=== PATIENT | female | born 1985 | race American Indian/Alaskan Native ===

== ENCOUNTER 2017-04-28 12:56 | Emergency (ER) | payer MEDICARE, MEDICAID ==
[2017-04-28 13:08] VITALS: BMI 25.8
[2017-04-28 13:14] VITALS: RESP 18; TEMP 98; O2SAT 99
--- NOTE | 2017-04-28 13:23 | ED PDOC ---
Arrival/HPI - General Chief Complaint: Headache Time Seen by Provider: 04/28/17 13:08 Historian: Patient - History of Present Illness Time/Duration: 1 week Symptom Onset: Gradual Symptom Course: Worsening Quality: Throbbing Severity Level: Moderate Activities at Onset: Rest Associated Symptoms (Text): 04/28/17 13:20 Patient complains of a one-week history of a worsening throbbing left-sided headache. The headache had been relieved with Tylenol, but the Tylenol is no longer working. No nausea vomiting. No head trauma. No dizziness or lightheadedness. No numbness tingling or paresthesias. No weakness. No difficulty with ADLs. She has had similar headaches multiple times previously, but not in approximately one year. She has had multiple normal CT scans of the brain, last in December 2015. She did have dialysis yesterday. She reports she was at her HIV doctor several weeks ago and her viral load was undetectable. She does not appear to be in any distress. Past Medical History - Infectious Disease Hx of Infectious Diseases: None - Tetanus Immunization Tetanus Immunization: Unknown - Cardiac Hx Congestive Heart Failure: Yes Hx Hypertension: Yes - Pulmonary Hx Respiratory Disorders: Yes Hx Bronchitis: Yes - Neurological Hx Neurological Disorder: No - HEENT Hx HEENT Disorder: No - Renal Hx Renal Disorder: Yes Hx Dialysis: Yes (m/w/f [facility]) Hx Renal Failure: Yes - Endocrine/Metabolic Hx Endocrine Disorders: No - Hematological/Oncological Hx AIDS: Yes Hx Hepatitis C: Yes - Integumentary Hx Dermatological Disorder: No - Musculoskeletal/Rheumatological Hx Falls: No - Gastrointestinal Hx Pancreatitis: Yes Other/Comment: pancreatitis - Genitourinary/Gynecological Hx Genitourinary Disorders: No - Psychiatric Hx Anxiety: Yes Hx Depression: Yes Hx Emotional Abuse: No Hx Physical Abuse: No Hx Substance Use: No - Surgical History Other/Comment: right arm AV fistula - Anesthesia Hx Anesthesia: Yes Hx Anesthesia Reactions: No Hx Malignant Hyperthermia: No - Suicidal Assessment Feels Threatened In Home Enviroment: No Family/Social History - Physician Review Nursing Documentation Reviewed: Yes Family/Social History: Unknown Family HX Smoking Status: Heavy Smoker > 10 Cigarettes Daily Hx Alcohol Use: No Hx Substance Use: No Hx Substance Use Treatment: No Allergies/Home Meds Allergies/Adverse Reactions: Allergies shellfish derived Allergy (Verified 04/28/17 13:15) ANAPHYLAXIS Home Medications: Home Meds Medication Instructions Recorded Confirmed cloNIDine [Catapres] 0.2 mg PO TID 04/11/15 04/28/17 Cinacalcet [Sensipar] 30 mg PO DAILY 11/17/15 04/28/17 hydrALAZINE [Apresoline] 50 mg PO TID 11/17/15 04/28/17 Lisinopril [Zestril] 20 mg PO DAILY 01/05/16 04/28/17 Metoprolol Succinate [Toprol XL] 200 mg PO DAILY 01/05/16 04/28/17 Review of Systems - Physician Review All systems were reviewed & negative as marked: Yes - Review of Systems Constitutional: absent: Fatigue, Fevers Respiratory: Normal Cardiovascular: Normal Gastrointestinal: Diarrhea. absent: Abdominal Pain, Constipation, Nausea, Vomiting Neurological: Headache. absent: Dizziness, Focal Weakness, Gait Changes, Speech Changes, Facial Droop, Disequilibrium, Seizure Physical Exam Vital Signs Temp Pulse Resp BP Pulse Ox 04/28/17 14:29 64 18 125/105 H 99 04/28/17 13:52 63 18 150/99 H 99 04/28/17 13:36 73 158/107 H 04/28/17 13:09 98 F 81 18 158/107 H 99 04/28/17 12:56 98 F 81 18 158/108 H 99 Temperature: Afebrile Blood Pressure: Hypertensive Pulse: Regular Respiratory Rate: Normal Appearance: Positive for: Well-Appearing, Non-Toxic, Comfortable Pain Distress: None Mental Status: Positive for: Alert and Oriented X 3 - Systems Exam Head: Present: Atraumatic, Normocephalic Pupils: Present: PERRL Extroacular Muscles: Present: EOMI Conjunctiva: Present: Normal Ears: Present: NORMAL TM, Normal Canal. No: Erythema Mouth: Present: Moist Mucous Membranes Pharnyx: No: ERYTHEMA, EXUDATE, TONSILS ENLARGED Neck: Present: Normal Range of Motion. No: Meningeal Signs, MIDLINE TENDERNESS , Paraspinal Tenderness Upper Extremity: Present: Normal Inspection. No: Cyanosis, Edema Lower Extremity: Present: Normal Inspection. No: Edema Neurological: Present: GCS=15, CN II-XII Intact, Speech Normal, Motor Func Grossly Intact, Normal Cerebellar Funct, Gait Normal Skin: Present: Warm, Dry, Normal Color. No: Rashes Psychiatric: Present: Alert, Oriented x 3, Normal Insight, Normal Concentration Medical Decision Making ED Course and Treatment: 04/28/17 14:10 Headache is markedly improved post Imitrex, though the patient is now nauseous. She will be treated with Zofran. Her blood pressure has improved. Her mother is coming to pick her up. 04/28/17 14:30 Patient is refusing the Zofran. She is insisting on a CT scan of the head, though we had previously discussed that she had multiple normal CT scans of the brain and her neurological exam is normal and I do not feel that further imaging is warranted. CT scan has been ordered for the patient. 04/28/17 14:40 Patient now does not want stay for the CT scan and will be discharged home accompanied by her mother. - RAD Interpretation Radiology Orders: 04/28/17 14:28 HEAD W/O CONTRAST [CT] Stat - Medication Orders Current Medication Orders: Discontinued Medications Clonidine HCl (Catapres) 0.2 mg PO ONCE ONE Stop: 04/28/17 13:21 Last Admin: 04/28/17 13:36 Dose: 0.2 mg Ondansetron HCl (Zofran Odt) 4 mg PO STAT STA Stop: 04/28/17 14:11 Last Admin: 04/28/17 14:20 Dose: Not Given Non-Admin Reason: Patient Refused Sumatriptan Succinate (Imitrex Inj) 6 mg SC STAT STA Stop: 04/28/17 13:20 Last Admin: 04/28/17 13:37 Dose: 6 mg Disposition/Present on Arrival - Present on Arrival Any Indicators Present on Arrival: No History of DVT/PE: No History of Uncontrolled Diabetes: No Urinary Catheter: No History of Decub. Ulcer: No History Surgical Site Infection Following: None - Disposition Have Diagnosis and Disposition been Completed?: Yes Diagnosis: Headache Disposition: HOME/ ROUTINE Disposition Time: 14:40 Patient Plan: Discharge Condition: IMPROVED Discharge Instructions (ExitCare): Acute Headache (ED), Migraine Headache (ED) Referrals: Zuleyma Collier MD [Primary Care Provider] - Follow up with primary Forms: Thumb Reading (Kiswahili)
[2017-04-28 14:31] VITALS: BP 125/105; PULSE 64
== END 2017-04-28 14:47 | disposition home or self-care (01) ==
LOC: ED 12:56
DX: R51 Headache (principal)
CPT/HCPCS: 96372; 99285; J3030

== ENCOUNTER 2017-05-08 18:50 | Emergency (ER) | payer MEDICARE, MEDICAID ==
[2017-05-08 18:59] VITALS: TEMP 98.2; O2SAT 99
[2017-05-08 19:21] VITALS: BMI 27.1
--- NOTE | 2017-05-08 19:46 | ED PDOC ---
Arrival/HPI - General Chief Complaint: Headache Time Seen by Provider: 05/08/17 19:03 - History of Present Illness Narrative History of Present Illness (Text): 05/08/17 19:20 31 F with pertinent PMHx of ESRD on Dialysis MWF (but last session was actually today) presents with an 8 hour duration of a sharp, left sided, non-radiating headache of 10/10 severity with associated symptoms of photophobia, phonophobia , and n/v. Patient took ibuprofen, Percocet, and Tylenol at home to no avail. Patient states that she has had MCCLELLAN's in the past, but none as bad as this one. Patient denies f/ch/cp/sob/d/constipation. Patient further denies any los, loss of vision, loss of motor function, confusion, or trauma. No further complaints. Past Medical History - Provider Review Nursing Documentation Reviewed: Yes - Infectious Disease Hx of Infectious Diseases: None - Tetanus Immunization Tetanus Immunization: Unknown - Reproductive Menopause: No - Cardiac Hx Congestive Heart Failure: Yes Hx Hypertension: Yes - Pulmonary Hx Respiratory Disorders: Yes Hx Bronchitis: Yes - Neurological Hx Neurological Disorder: No - HEENT Hx HEENT Disorder: No - Renal Hx Renal Disorder: Yes Hx Dialysis: Yes (m/w/f [facility]) Hx Renal Failure: Yes - Endocrine/Metabolic Hx Endocrine Disorders: No - Hematological/Oncological Hx AIDS: Yes Hx Hepatitis C: Yes - Integumentary Hx Dermatological Disorder: No - Musculoskeletal/Rheumatological Hx Falls: No - Gastrointestinal Hx Pancreatitis: Yes Other/Comment: pancreatitis - Genitourinary/Gynecological Hx Genitourinary Disorders: No - Psychiatric Hx Anxiety: Yes Hx Depression: Yes Hx Emotional Abuse: No Hx Physical Abuse: No Hx Substance Use: No - Surgical History Other/Comment: right arm AV fistula - Anesthesia Hx Anesthesia: Yes Hx Anesthesia Reactions: No Hx Malignant Hyperthermia: No - Suicidal Assessment Feels Threatened In Home Enviroment: No Family/Social History - Physician Review Nursing Documentation Reviewed: Yes Smoking Status: Heavy Smoker > 10 Cigarettes Daily Hx Alcohol Use: No Hx Substance Use: No Hx Substance Use Treatment: No Allergies/Home Meds Allergies/Adverse Reactions: Allergies shellfish derived Allergy (Verified 04/28/17 13:15) ANAPHYLAXIS Home Medications: Home Meds Medication Instructions Recorded Confirmed cloNIDine [Catapres] 0.2 mg PO TID 04/11/15 04/28/17 Cinacalcet [Sensipar] 30 mg PO DAILY 11/17/15 04/28/17 hydrALAZINE [Apresoline] 50 mg PO TID 11/17/15 04/28/17 Lisinopril [Zestril] 20 mg PO DAILY 01/05/16 04/28/17 Metoprolol Succinate [Toprol XL] 200 mg PO DAILY 01/05/16 04/28/17 Review of Systems - Physician Review All systems were reviewed & negative as marked: Yes - Review of Systems Constitutional: Normal. absent: Fatigue, Weight Change, Fevers Eyes: Photophobia. absent: Vision Changes, Eye Pain ENT: Normal. absent: Hearing Changes, Tinnitus, TMJ Pain, Voice Changes, Sore Throat Respiratory: Normal. absent: SOB, Cough, Sputum, Wheezing Cardiovascular: Normal. absent: Chest Pain, Palpitations, Edema Gastrointestinal: Nausea, Vomiting. absent: Abdominal Pain, Stool Changes, Diarrhea, Appetite Changes Genitourinary Female: Normal. absent: Dysuria, Frequency, Hematuria Musculoskeletal: Normal. absent: Arthralgias, Back Pain, Neck Pain Skin: Normal. absent: Rash, Pruritis, Skin Lesions, Laceration Neurological: Headache, Dizziness. absent: Focal Weakness, Gait Changes, Speech Changes, Facial Droop Endocrine: Normal. absent: Diaphoresis, Polyuria, Polydipsia Hemo/Lymphatic: Normal. absent: Adenopathy, Easy Bleeding, Easy Bruising Psychiatric: Normal. absent: Anxiety, Depression, Suicidal Ideation Physical Exam Vital Signs Reviewed: Yes Vital Signs Temp Pulse Resp BP Pulse Ox 05/08/17 19:50 74 151/111 H 05/08/17 18:57 98.2 F 77 18 202/103 H 99 Temperature: Afebrile Blood Pressure: Hypertensive Pulse: Regular Respiratory Rate: Normal Appearance: Positive for: Well-Appearing, Non-Toxic, Comfortable Pain Distress: None Mental Status: Positive for: Alert and Oriented X 3 - Systems Exam Head: Present: Atraumatic, Normocephalic. No: Tenderness, Contusion Pupils: Present: PERRL. No: Sluggish, Non-Reactive, Pinpoint Extroacular Muscles: Present: EOMI. No: Gaze Palsy, Entrapment Conjunctiva: Present: Normal. No: Injected, Icteric Ears: Present: Normal. No: NORMAL TM, Erythema, Normal Canal Mouth: Present: Moist Mucous Membranes. No: Dry, Drooling, Trismus Pharnyx: Present: Normal. No: ERYTHEMA, EXUDATE, TONSILS ENLARGED Nose (External): Present: Atraumatic. No: Abrasion, Contusion, Laceration Neck: Present: Normal Range of Motion. No: Meningeal Signs, MIDLINE TENDERNESS , Paraspinal Tenderness Respiratory/Chest: Present: Clear to Auscultation, Good Air Exchange. No: Respiratory Distress, Accessory Muscle Use, Wheezes Cardiovascular: Present: Regular Rate and Rhythm, Normal S1, S2. No: Murmurs, Rub, Gallop Abdomen: Present: Normal Bowel Sounds. No: Tenderness, Distention, Peritoneal Signs, Rebound, Guarding Back: Present: Normal Inspection. No: CVA Tenderness, Midline Tenderness, Paraspinal Tenderness Upper Extremity: Present: Normal Inspection. No: Cyanosis, Edema, Normal ROM, NORMAL PULSES Lower Extremity: Present: Normal Inspection. No: Edema, CALF TENDERNESS, NORMAL PULSES, Cyanosis, Normal ROM Neurological: Present: GCS=15, CN II-XII Intact, Speech Normal, Motor Func Grossly Intact, Normal Sensory Function Skin: Present: Warm, Dry, Normal Color. No: Rashes Psychiatric: Present: Alert, Oriented x 3, Normal Insight, Normal Concentration , Normal Affect, Normal Mood. No: Anxious, Agitated Medical Decision Making ED Course and Treatment: Assessed: 05/08/17 19:20 Impression: 31 F with pertinent medical history of ESRD on Dialysis, last session today, presents with 8 hour duration of MCCLELLAN with photophobia, phonophobia, and n/v. Hypertensive on arrival Plan: - Hydralazine - Reglan - Reassess Reassessed: 05/08/17 20:04 - Pt feels better after hydralazine and reglan 05/08/17 21:20 - Pt feels much better from arrival - BP improved - Patient states she does not want anything more for pain - Patient stable for discharge - Medication Orders Current Medication Orders: Discontinued Medications Hydralazine HCl (Apresoline) 10 mg IVP STAT STA Stop: 05/08/17 19:23 Last Admin: 05/08/17 19:50 Dose: 10 mg Ketorolac Tromethamine (Toradol) 30 mg IVP STAT STA Stop: 05/08/17 20:33 Metoclopramide HCl (Reglan) 10 mg IVP STAT STA Stop: 05/08/17 19:22 Last Admin: 05/08/17 19:50 Dose: 10 mg Disposition/Present on Arrival - Present on Arrival History of DVT/PE: No History of Uncontrolled Diabetes: No Urinary Catheter: No History of Decub. Ulcer: No History Surgical Site Infection Following: None - Disposition Have Diagnosis and Disposition been Completed?: Yes Diagnosis: Headache Disposition: HOME/ ROUTINE Disposition Time: 21:06 Patient Plan: Discharge Patient Problems: Current Active Problems Problem Status Onset Headache Acute Condition: IMPROVED Discharge Instructions (ExitCare): Migraine Headache (ED) Additional Instructions: Ms. Wade, thank you for letting us take care of you today. Your providers were Dr. Hernández and Dr. Edwards. You were treated for a migraine headache. The emergency medical care you received today was directed at your acute symptoms. If you were prescribed any medication, please fill it and take as directed. It may take several days for your symptoms to resolve. Return to the Emergency Department if your symptoms worsen, do not improve, or if you have any other problems. Please contact your doctor or call one of the physicians/clinics you have been referred to that are listed on the Patient Visit Information form that is included in your discharge packet. Bring any paperwork you were given at discharge with you along with any medications you are taking to your follow up visit. Our treatment cannot replace ongoing medical care by a primary care provider (PCP) outside of the emergency department. Thank you for allowing the [facility] team to be part of your care today. Please make sure to follow up with your dentist next week, as we discussed. Please fill your Rx as directed Prescriptions: Ibuprofen [Motrin Tab] 800 mg PO DAILY #5 tab Ondansetron ODT [Zofran ODT] 4 mg PO TID #12 odt Referrals: Zuleyma Collier MD [Primary Care Provider] - Follow up with primary Forms: katena (Pashto)
[2017-05-08 21:21] VITALS: BP 155/105; PULSE 85; RESP 16
--- NOTE | 2017-05-09 13:26 | CARD ---
APPROVED REPORT EKG Measurement Heart [id number] <Conclusion> Normal sinus rhythm Possible Left atrial enlargement Nonspecific ST and T wave abnormality Prolonged QT Abnormal ECG
== END 2017-05-08 21:33 | disposition home or self-care (01) ==
LOC: ED 18:50
DX: R51 Headache (principal); I12.0 Hypertensive chronic kidney disease with stage 5 chronic kidney disease or end stage renal disease; N18.6 End stage renal disease; F17.210 Nicotine dependence, cigarettes, uncomplicated; Z99.2 Dependence on renal dialysis
CPT/HCPCS: 84702; 93005; 96374; 96375; 99285; J0360; J2765

== ENCOUNTER 2017-06-01 15:43 | Emergency (ER) | payer MEDICARE, MEDICAID ==
[2017-06-01 16:14] VITALS: TEMP 98.4
[2017-06-01 16:15] VITALS: BMI 26.6
[2017-06-01] MEDS ORDERED: DiphenhydrAMINE 50 mg/ml Inj IVP STA (16:21)
--- NOTE | 2017-06-01 16:23 | ED PDOC ---
Arrival/HPI - General Chief Complaint: Dizziness/Lightheaded Time Seen by Provider: 06/01/17 16:04 Historian: Patient - History of Present Illness Narrative History of Present Illness (Text): 06/01/17 16:24 A 31 year old female whose past medical history includes end stage renal disease , dialyzed MWF, and history of HIV. Presents to the emergency department with 1 month duration headache. The patient states that she has been seen in the emergency department twice last month for similar symptoms. She states that she is supposed to have a CT done. The patient denies denies fevers, chills, dizziness, sore throat, cough, chest pain, shortness of breath, dyspnea on exertion, abdominal pain, nausea, vomiting, diarrhea, neck pain, back pain, urinary/bowel changes, or any other complaints. Time/Duration: Other (1 month) Symptom Onset: Sudden Symptom Course: Unchanged Activities at Onset: Rest, Light Context: Home Past Medical History - Provider Review Nursing Documentation Reviewed: Yes - Infectious Disease Hx of Infectious Diseases: None - Tetanus Immunization Tetanus Immunization: Unknown - Cardiac Hx Congestive Heart Failure: Yes Hx Hypertension: Yes - Pulmonary Hx Respiratory Disorders: Yes Hx Bronchitis: Yes - Neurological Hx Neurological Disorder: No - HEENT Hx HEENT Disorder: No - Renal Hx Renal Disorder: Yes Hx Dialysis: Yes (m/w/f [facility]) Hx Renal Failure: Yes - Endocrine/Metabolic Hx Endocrine Disorders: No - Hematological/Oncological Hx AIDS: Yes Hx Hepatitis C: Yes - Integumentary Hx Dermatological Disorder: No - Musculoskeletal/Rheumatological Hx Musculoskeletal Disorders: No - Gastrointestinal Hx Pancreatitis: Yes Other/Comment: pancreatitis - Genitourinary/Gynecological Hx Genitourinary Disorders: No - Psychiatric Hx Anxiety: Yes Hx Depression: Yes Hx Substance Use: No - Surgical History Other/Comment: right arm AV fistula - Anesthesia Hx Anesthesia: Yes Hx Anesthesia Reactions: No Hx Malignant Hyperthermia: No - Suicidal Assessment Feels Threatened In Home Enviroment: No Family/Social History - Physician Review Nursing Documentation Reviewed: Yes Family/Social History: No Known Family HX Smoking Status: Light Smoker < 10 Cigarettes Daily Hx Alcohol Use: No Hx Substance Use: No Hx Substance Use Treatment: No Allergies/Home Meds Allergies/Adverse Reactions: Allergies shellfish derived Allergy (Verified 06/01/17 16:17) ANAPHYLAXIS Home Medications: Home Meds Medication Instructions Recorded Confirmed Unobtainable 06/01/17 06/01/17 Review of Systems - Physician Review All systems were reviewed & negative as marked: Yes - Review of Systems Constitutional: absent: Fevers, Night Sweats Respiratory: absent: SOB, Cough Cardiovascular: absent: Chest Pain, EBLL Gastrointestinal: absent: Abdominal Pain, Stool Changes, Diarrhea, Nausea, Vomiting Genitourinary Female: absent: Urine Output Changes Musculoskeletal: absent: Back Pain, Neck Pain Neurological: Headache (1 month duration.). absent: Dizziness Physical Exam Vital Signs Reviewed: Yes Vital Signs Temp Pulse Resp BP Pulse Ox 06/01/17 18:55 84 17 158/112 H 99 06/01/17 16:13 98.4 F 85 22 150/100 H 100 Temperature: Afebrile Blood Pressure: Hypertensive Pulse: Regular Respiratory Rate: Normal Appearance: Positive for: Well-Appearing, Non-Toxic, Comfortable Pain Distress: None Mental Status: Positive for: Alert and Oriented X 3 - Systems Exam Head: Present: Atraumatic, Normocephalic Pupils: Present: PERRL Extroacular Muscles: Present: EOMI Conjunctiva: Present: Normal Mouth: Present: Moist Mucous Membranes Neck: Present: Normal Range of Motion Respiratory/Chest: Present: Clear to Auscultation, Good Air Exchange. No: Respiratory Distress, Accessory Muscle Use Cardiovascular: Present: Regular Rate and Rhythm, Normal S1, S2. No: Murmurs Abdomen: Present: Normal Bowel Sounds. No: Tenderness, Distention, Peritoneal Signs Back: Present: Normal Inspection Upper Extremity: Present: Normal Inspection. No: Cyanosis, Edema Lower Extremity: Present: Normal Inspection. No: Edema Neurological: Present: GCS=15, CN II-XII Intact, Speech Normal Skin: Present: Warm, Dry, Normal Color. No: Rashes Psychiatric: Present: Alert, Oriented x 3, Normal Insight, Normal Concentration Medical Decision Making ED Course and Treatment: 06/01/17 16:28 Impression: A 31 year old female presents to the emergency department with 1 month duration headache. Plan: -- Head CT -- Urinalysis -- Labs -- Benadryl and Reglan -- Reassess and disposition Prior Visits: Notes and results from previous visits were reviewed. On 05/08/2017 the patient presented to the emergency department for sharp, left sided, non- radiating headache. Progress Notes: 06/01/17 18:29: Leaving Against Medical Advice (AMA): The patient is choosing to leave against medical advice. I have personally explained to the patient that choosing to do so may result in permanent bodily harm or . I have discussed at great length that without further evaluation and monitoring there may be unforeseen circumstances and/or deterioration causing permanent bodily harm or as a result of their choice. The patient is alert, oriented, and shows the mental capacity to make clear decisions regarding the patients health care at this time. The patient continues to wish to leave against medical advice. The patient has been advised that they should return to the emergency room immediately if they change their mind at any time, or if their condition begins to change or worsen in any way. 06/01/17 21:42 noted k results and cr. pt reports missed hd this week. paged pts openstack developer to discuss for possible hd. pt refuses to wait, and refuses hd. asks for d.c signs ama - Lab Interpretations Lab Results: 06/01/17 17:00 06/01/17 17:00 Lab Results 06/01/17 17:00: Sodium 141, Potassium 5.8 H* D, Chloride 93 L, Carbon Dioxide 32 , Anion Gap 22 H, BUN 27 H, Creatinine 9.1 H*, Est GFR ( Amer) 6, Est GFR (Non-Af Amer) 5, Random Glucose 102, Calcium 9.0, Total Bilirubin 0.6, AST 35, ALT 21, Alkaline Phosphatase 108, Total Protein 8.3, Albumin 4.5, Globulin 3.9, Albumin/Globulin Ratio 1.2 06/01/17 17:00: PT 11.2, INR 1.04, APTT 25.8 06/01/17 17:00: WBC 6.0 D, RBC 3.76, Hgb 12.5, Hct 38.4, MCV 102.1, MCH 33.2, MCHC 32.6, RDW 15.8 H, Plt Count 226, MPV 11.7 H, Gran % 60.6, Lymph % (Auto) 23.9, [place] % (Auto) 9.3 H, Eos % (Auto) 5.5 H, Baso % (Auto) 0.7, Gran # 3.65, Lymph # 1.4, [place] # 0.6, Eos # 0.3, Baso # 0.04 I have reviewed the lab results: Yes - RAD Interpretation Radiology Orders: 06/01/17 16:21 HEAD W/O CONTRAST [CT] Stat - Medication Orders Current Medication Orders: Discontinued Medications Diphenhydramine HCl (Benadryl) 25 mg IVP STAT STA Stop: 06/01/17 16:22 Last Admin: 06/01/17 17:04 Dose: 25 mg IVP Administration Document 06/01/17 17:04 MR (Rec: 06/01/17 17:04 [id number]) Charges for Administration # of IVP Administrations 1 Metoclopramide HCl (Reglan) 10 mg IVP STAT STA Stop: 06/01/17 16:22 Last Admin: 06/01/17 17:04 Dose: 10 mg IVP Administration Document 06/01/17 17:04 MR (Rec: 06/01/17 17:04 [id number]) Charges for Administration # of IVP Administrations 1 Sodium Polystyrene Sulfonate (Kayexalate Oral Susp) 15 gm PO STAT STA Stop: 06/01/17 18:28 Last Admin: 06/01/17 18:46 Dose: 15 gm - Scribe Statement The provider has reviewed the documentation as recorded by the Manuel Cartagena Provider Scribe Attestation: All medical record entries made by the Scribe were at my direction and personally dictated by me. I have reviewed the chart and agree that the record accurately reflects my personal performance of the history, physical exam, medical decision making, and the department course for this patient. I have also personally directed, reviewed, and agree with the discharge instructions and disposition. Disposition/Present on Arrival - Present on Arrival Any Indicators Present on Arrival: No History of DVT/PE: No History of Uncontrolled Diabetes: No Urinary Catheter: No History of Decub. Ulcer: No History Surgical Site Infection Following: None - Disposition Have Diagnosis and Disposition been Completed?: Yes Diagnosis: Hyperkalemia, Headache Disposition: AGAINST MEDICAL ADVICE Disposition Time: 06:00 Condition: UNKNOWN Discharge Instructions (ExitCare): Hyperkalemia (ED), Acute Headache (ED) Additional Instructions: return to er with worsening symptoms or concerns. please continue with your dialysis tommorow. Referrals: Zuleyma Collier MD [Primary Care Provider] - Follow up with primary Forms: PushPage (Frisian)
[2017-06-01 17:12] LABS: BASO # 0.04 K/mm3 (0.0-2.0); BASO % 0.7 % (0.0-3.0); EOS # 0.3 (0.0-0.7); EOS % 5.5 % (1.5-5.0); GRAN # 3.65 (1.4-6.5); GRAN % 60.6 % (50.0-68.0); HEMATOCRIT 38.4 % (36.0-48.0); LYMPH # 1.4 (1.2-3.4); LYMPH % 23.9 % (22.0-35.0); MEAN CELL VOLUME 102.1 fl (80.0-105.0); MEAN CORPUSCULAR HEMOGLOBIN 33.2 pg (25.0-35.0); MEAN CORPUSCULAR HGB CONC 32.6 g/dl (31.0-37.0); MEAN PLATELET VOLUME 11.7 fl (7.0-11.0); MONO # 0.6 (0.1-0.6); MONO % 9.3 % (1.0-6.0); RED CELL DISTRIBUTION WIDTH 15.8 % (11.5-14.5)
[2017-06-01 17:19] LABS: ALB/GLOB RATIO 1.2 (1.1-1.8); BILIRUBIN,TOTAL 0.6 mg/dL (0.2-1.3); TOTAL PROTEIN 8.3 g/dL (5.8-8.3)
[2017-06-01 17:21] LABS: INR 1.04 (0.93-1.08); PARTIAL THROMBOPLASTIN TIME 25.8 Seconds (23.7-30.8)
[2017-06-01 17:22] LABS: POTASSIUM 5.8 mmol/L (3.6-5.0)
[2017-06-01] MEDS ORDERED: Sod Polystyrene Sulf 15 gm/60 ml Oral Susp PO STA (18:27)
[2017-06-01 18:55] VITALS: BP 158/112; PULSE 84; RESP 17; O2SAT 99
--- NOTE | 2017-06-01 20:03 | CT ---
PROCEDURE: CT HEAD WITHOUT CONTRAST. HISTORY: Headache COMPARISON: 01/05/2016. TECHNIQUE: Axial computed tomography images were obtained through the head/brain without intravenous contrast. Radiation dose: Total exam DLP = 823.45 mGy-cm. This CT exam was performed using one or more of the following dose reduction techniques: Automated exposure control, adjustment of the mA and/or kV according to patient size, and/or use of iterative reconstruction technique. FINDINGS: HEMORRHAGE: No intracranial hemorrhage. BRAIN: Walker-white matter differentiation is preserved. There is no mass, mass effect or abnormal extra-axial fluid collection. VENTRICLES: The ventricles are normal in size, shape and configuration. CALVARIUM: The skull base and calvarium are normal. PARANASAL SINUSES: Predominantly clear. MASTOID AIR CELLS: Predominantly clear. OTHER FINDINGS: None. IMPRESSION: No acute intracranial abnormality.
== END 2017-06-01 18:59 | disposition left against medical advice (07) ==
LOC: ED 15:43
DX: E87.5 Hyperkalemia (principal); R51 Headache; I12.0 Hypertensive chronic kidney disease with stage 5 chronic kidney disease or end stage renal disease; N18.6 End stage renal disease; F17.210 Nicotine dependence, cigarettes, uncomplicated; Z99.2 Dependence on renal dialysis
CPT/HCPCS: 70450; 80053; 85025; 85610; 85730; 96374; 96375; 99285; J1200; J2765

== ENCOUNTER 2017-10-29 02:48 | Inpatient (IN) | payer MEDICARE, MEDICAID ==
[2017-10-29 02:55] VITALS: BMI 25.1
--- NOTE | 2017-10-29 03:08 | ED PDOC ---
Arrival/HPI - General Chief Complaint: GI Problem Time Seen by Provider: 10/29/17 02:49 Historian: Patient - History of Present Illness Narrative History of Present Illness (Text): you were treated in the ED today for hx of HepC, HIV/AIDs nephropathy and not on antiviral medications for past 2wks, Diabetes, CHF, HTN, Pancreatitis, ESRD and missed last dialysis past Sunday and having abdomen pain with nausea/ vomiting/diarrhea without bile/blood, but otherwise without any headache/ dizziness/difficulty breathing/chest pain/abdomen pain/numbness/tingling/loss of limb function/pain with urination. FINDINGS: Limitations: Lack of intravenous contrast. Streak artifact - mild. Lower thorax: 1.1 x 1.8 x 1.8 cm dermal lesion right breast. Mild cardiomegaly. ABDOMEN: Liver: < 0.5 cm lesion. Gallbladder and bile ducts: Milk of calcium or vicarious discretion of contrast within gallbladder. No ductal dilation. Pancreas: Unremarkable. No ductal dilation. Spleen: No splenomegaly. Adrenals: No mass. Kidneys and ureters: Mild stranding about kidneys, nonspecific. Atrophic kidneys. Probable RIGHT renal cyst. No hydronephrosis. Stomach and bowel: Fluid within small bowel. Fluid/loose stool within large bowel. Several moderate to markedly thickened loops of proximal to mid small bowel. Mild stranding within associated small bowel mesentery. Few mildly distended loops of small bowel, likely ileus. Appendix: No findings to suggest acute appendicitis. PELVIS: Bladder: Collapsed bladder, limiting evaluation. No stones. Reproductive: Apparent 2.4 x 2.0 x 2.5 cm hypodense lesion within RIGHT ovary. ABDOMEN and PELVIS: Intraperitoneal space: Trace free fluid within pelvis. No free air. Bones/joints: No acute fracture. Soft tissues: Unremarkable. Vasculature: Unremarkable. No aneurysm. Lymph nodes: No pathologically enlarged lymph nodes. IMPRESSION: 1. Enteritis, nonspecific. Consider inflammatory, infectious or ischemic etiologies. 2. Possible RIGHT ovarian cyst. Suggest ultrasound. 3. Right breast lesion. Clinical correlation is needed. 4. Liver lesion. For patients with low to average risk of malignancy, no further follow-up is necessary. For patients with high risk of malignancy (known malignancy that can metastasize or other risk factors), recommend follow-up abdominal CT or MR in 6 months. 5. Incidental/non-acute findings are described above. Time/Duration: 24 hours Quality: Aching Severity Level: 2 Activities at Onset: Rest Context: Sitting Past Medical History - Provider Review Nursing Documentation Reviewed: Yes - Travel History Have you recently traveled outside [place] w/in the past 3 mons?: No - Infectious Disease Hx of Infectious Diseases: None - Tetanus Immunization Tetanus Immunization: Unknown - Cardiac Hx Congestive Heart Failure: Yes Hx Hypertension: Yes - Pulmonary Hx Respiratory Disorders: Yes Hx Bronchitis: Yes - Neurological Hx Neurological Disorder: No - HEENT Hx HEENT Disorder: No - Renal Hx Renal Disorder: Yes Hx Dialysis: Yes (m/w/f [place]) Hx Renal Failure: Yes - Endocrine/Metabolic Hx Endocrine Disorders: No - Hematological/Oncological Hx AIDS: Yes Hx Hepatitis C: Yes - Integumentary Hx Dermatological Disorder: No - Musculoskeletal/Rheumatological Hx Musculoskeletal Disorders: No - Gastrointestinal Hx Pancreatitis: Yes Other/Comment: pancreatitis - Genitourinary/Gynecological Hx Genitourinary Disorders: No - Psychiatric Hx Anxiety: Yes Hx Depression: Yes Hx Substance Use: No - Surgical History Other/Comment: right arm AV fistula - Anesthesia Hx Anesthesia: Yes Hx Anesthesia Reactions: No Hx Malignant Hyperthermia: No - Suicidal Assessment Feels Threatened In Home Enviroment: No Family/Social History - Physician Review Nursing Documentation Reviewed: Yes Family/Social History: No Known Family HX Smoking Status: Light Smoker < 10 Cigarettes Daily Hx Alcohol Use: No Hx Substance Use: No Hx Substance Use Treatment: No Allergies/Home Meds Allergies/Adverse Reactions: Allergies shellfish derived Allergy (Verified 06/01/17 16:17) ANAPHYLAXIS Home Medications: Home Meds Medication Instructions Recorded Confirmed Cinacalcet [Sensipar] 60 mg PO DAILY 10/29/17 10/29/17 Valsartan [Valsartan] 320 mg PO DAILY 10/29/17 10/29/17 amLODIPine [Norvasc] 10 mg PO DAILY 10/29/17 10/29/17 cloNIDine [Catapres] 0.2 mg PO TID 10/29/17 10/29/17 Review of Systems - Review of Systems Constitutional: Normal Eyes: Normal ENT: Normal Respiratory: Normal Cardiovascular: Normal Gastrointestinal: Abdominal Pain, Stool Changes, Diarrhea, Nausea, Vomiting Genitourinary Female: Normal Musculoskeletal: Normal Skin: Normal Neurological: Normal Endocrine: Normal Hemo/Lymphatic: Normal Psychiatric: Normal Physical Exam Vital Signs Reviewed: Yes Vital Signs Temp Pulse Resp BP Pulse Ox 10/29/17 06:26 196/131 H 10/29/17 06:20 85 18 196/131 H 100 10/29/17 06:02 90 18 201/126 H 100 10/29/17 05:29 85 206/136 H 10/29/17 03:36 84 18 180/130 H 100 10/29/17 02:48 97.7 F 83 18 206/133 H 100 Appearance: Positive for: Uncomfortable Pain Distress: None Mental Status: Positive for: Alert and Oriented X 3 - Systems Exam Head: Present: Atraumatic, Normocephalic Pupils: Present: PERRL Extroacular Muscles: Present: EOMI Conjunctiva: Present: Normal Ears: Present: Normal Mouth: Present: Moist Mucous Membranes Pharnyx: Present: Normal Nose (External): Present: Atraumatic Nose (Internal): Present: Normal Inspection Neck: Present: Normal Range of Motion Respiratory/Chest: Present: Clear to Auscultation, Good Air Exchange Cardiovascular: Present: Regular Rate and Rhythm Abdomen: Present: Tenderness, Other (mid-abdomen, otherwise soft wo guarding or rebound) Back: Present: Normal Inspection Upper Extremity: Present: Normal Inspection, Other (right upper forearm good thrill) Lower Extremity: Present: Normal Inspection Neurological: Present: GCS=15, CN II-XII Intact, Speech Normal, Motor Func Grossly Intact Skin: Present: Warm, Normal Color Psychiatric: Present: Alert, Oriented x 3, Normal Insight, Normal Concentration Medical Decision Making ED Course and Treatment: you were treated in the ED today for hx of HepC, HIV/AIDs nephropathy and not on antiviral medications for past 2wks, Diabetes, CHF, HTN, Pancreatitis, ESRD and missed last dialysis past Sunday and having abdomen pain with nausea/ vomiting/diarrhea without bile/blood, but otherwise without any headache/ dizziness/difficulty breathing/chest pain/abdomen pain/numbness/tingling/loss of limb function/pain with urination. You were otherwise breathing easily, pink moist lips, talking easily, good strength/sensation, alert/oriented, walking easily, clear lungs, mild mid- abdomen discomfort, right upper arm good thrill, no fever temp 97.7 , stable heart rate 83, stable breathing rate 18, excellent oxygen level 100% room air, elevated blood pressure 206/133 and repeat which we recommend repeat in 2-3 days primary care office to determine further treatment, you have blood tests infection count 13.9, stable blood level hemoglobin 14.9/platelets 206, stable chemistry sodium 142, potassium 5.9, bicarbonate 15, chloride 108, creatinine 16.7, glucose 106, heart blood test negative, negative test less than 2.39, you stated you don't make urine anymore, radiology ct abdomen/pelvis enteritis, ECG normal sinus rhythm, zofran, protonix, morphine, observation done in the ED with with stability. 10/29/17 03:09 FINDINGS: Limitations: Lack of intravenous contrast. Streak artifact - mild. Lower thorax: 1.1 x 1.8 x 1.8 cm dermal lesion right breast. Mild cardiomegaly. ABDOMEN: Liver: < 0.5 cm lesion. Gallbladder and bile ducts: Milk of calcium or vicarious discretion of contrast within gallbladder. No ductal dilation. Pancreas: Unremarkable. No ductal dilation. Spleen: No splenomegaly. Adrenals: No mass. Kidneys and ureters: Mild stranding about kidneys, nonspecific. Atrophic kidneys. Probable RIGHT renal cyst. No hydronephrosis. Stomach and bowel: Fluid within small bowel. Fluid/loose stool within large bowel. Several moderate to markedly thickened loops of proximal to mid small bowel. Mild stranding within associated small bowel mesentery. Few mildly distended loops of small bowel, likely ileus. Appendix: No findings to suggest acute appendicitis. PELVIS: Bladder: Collapsed bladder, limiting evaluation. No stones. Reproductive: Apparent 2.4 x 2.0 x 2.5 cm hypodense lesion within RIGHT ovary. ABDOMEN and PELVIS: Intraperitoneal space: Trace free fluid within pelvis. No free air. Bones/joints: No acute fracture. Soft tissues: Unremarkable. Vasculature: Unremarkable. No aneurysm. Lymph nodes: No pathologically enlarged lymph nodes. IMPRESSION: 1. Enteritis, nonspecific. Consider inflammatory, infectious or ischemic etiologies. 2. Possible RIGHT ovarian cyst. Suggest ultrasound. 3. Right breast lesion. Clinical correlation is needed. 4. Liver lesion. For patients with low to average risk of malignancy, no further follow-up is necessary. For patients with high risk of malignancy (known malignancy that can metastasize or other risk factors), recommend follow-up abdominal CT or MR in 6 months. 5. Incidental/non-acute findings are described above. d/w medical Niko who stated will notify the incoming day team residents. we are to call after 7am to hospitalist day personal care home administrator. signed out to Dr. Rey to hospitalist for admission, HIV with enteritis and needing HD. cipro/flagyl given. 10/29/17 07:10 10/29/17 07:21 d/w Dr. Lehman who regarding pt HIV/HepC, enteritis, missed HD and accepted for admission. Reassessment Condition: Improved - Lab Interpretations Lab Results: 10/29/17 03:18 10/29/17 03:18 Lab Results 10/29/17 03:18: Beta HCG, Quant < 2.39 10/29/17 03:18: pO2 193 H, VBG pH 7.35, VBG pCO2 34.0 L, VBG HCO3 18.8 L, VBG Total CO2 19.8 L, VBG O2 Sat (Calc) 100.0 H, VBG Base Excess -6.0 L, VBG Potassium 6.3 H*, Sodium 136.0, Chloride 106.0, Glucose 103, Lactate 0.8, FiO2 21.0, Venous Blood Potassium 6.3 H* 10/29/17 03:18: Sodium 142, Chloride 108 H, Potassium 5.9 H*, Carbon Dioxide 15 L, Anion Gap 24 H, BUN 45 H, Creatinine 16.7 H*, Est GFR ( Amer) 3, Est GFR (Non-Af Amer) 3, Random Glucose 106, Calcium 9.6, Total Bilirubin 0.7, AST 27, ALT 18, Alkaline Phosphatase 119, Troponin I < 0.01 D, Total Protein 7.1, Albumin 4.0, Globulin 3.1, Albumin/Globulin Ratio 1.3, Lipase 240 10/29/17 03:18: PT 11.0, INR 0.97, APTT 28.3 10/29/17 03:18: WBC 13.9 H D, RBC 4.53, Hgb 14.9 D, Hct 45.6, MCV 100.7, MCH 32.9, MCHC 32.7, RDW 16.2 H, Plt Count 206, MPV 10.6, Gran % 83.2 H, Lymph % ( Auto) 8.8 L, [place] % (Auto) 5.7, Eos % (Auto) 2.2, Baso % (Auto) 0.1, Gran # 11.60 H, Lymph # (Auto) 1.2, [place] # (Auto) 0.8 H, Eos # (Auto) 0.3, Baso # (Auto ) 0.02 I have reviewed the lab results: Yes - RAD Interpretation Radiology Orders: 10/29/17 04:47 ABD & PELVIS W/O PO OR IV CONT [CT] Stat Complex Director: Radiologist (see ct a/p mdm) - EKG Interpretation Interpreted by ED Physician: Yes (NSR, flipped t waves avr, avl) Type: 12 lead EKG Comparison: Similar to previous EKG (05/08/17.) - Medication Orders Current Medication Orders: Ciprofloxacin (Cipro 400mg/200ml Dsw) 400 mg in 200 mls @ 133.3 mls/hr IVPB STAT STA PRN Reason: Protocol Stop: 10/29/17 08:37 Metronidazole (Flagyl) 500 mg in 100 mls @ 100 mls/hr IVPB STAT STA PRN Reason: Protocol Stop: 10/29/17 08:08 Discontinued Medications Albuterol/Ipratropium (Duoneb 3 Mg/0.5 Mg (3 Ml) Ud) 3 ml IH STAT STA Stop: 10/29/17 06:25 Last Admin: 10/29/17 06:38 Dose: 3 ml Amlodipine Besylate (Norvasc) 10 mg PO STAT STA Stop: 10/29/17 06:15 Last Admin: 10/29/17 06:26 Dose: 10 mg MAR Blood Pressure Document 10/29/17 06:26 AD (Rec: 10/29/17 06:27 AD [id number]) Blood Pressure Blood Pressure (100/60-150/90 mm Hg) 196/131 Clonidine HCl (Catapres) 0.2 mg PO STAT STA Stop: 10/29/17 05:22 Last Admin: 10/29/17 05:29 Dose: 0.2 mg MAR Pulse and Blood Pressure Document 10/29/17 05:29 AD (Rec: 10/29/17 05:29 AD [id number]) Pulse Pulse Rate (60-90 beats/min) 85 Blood Pressure Blood Pressure (100/60-150/90 mm Hg) 206/136 Morphine Sulfate (Morphine) 2 mg IVP STAT STA Stop: 10/29/17 03:36 Last Admin: 10/29/17 03:42 Dose: 2 mg MAR Pain Assessment Document 10/29/17 03:42 AD (Rec: 10/29/17 03:44 AD [id number]) Pain Reassessment Is this a pain reassessment? No Presence of Pain Presence of Pain Yes Pain Scale Used Pain Scale Used Numeric Location Pain Location Body Site Abdomen Description Description Constant Intensity of Pain at present 10 Pain Behavior Moaning Facial Grimacing Alleviating Factors Medication IVP Administration Document 10/29/17 03:42 AD (Rec: 10/29/17 03:44 AD [id number]) Charges for Administration # of IVP Administrations 1 Morphine Sulfate (Morphine) 2 mg IVP STAT STA Stop: 10/29/17 05:08 Last Admin: 10/29/17 05:15 Dose: 2 mg MAR Pain Assessment Document 10/29/17 05:15 AD (Rec: 10/29/17 05:16 AD [id number]) Pain Reassessment Is this a pain reassessment? No Presence of Pain Presence of Pain Yes Pain Scale Used Pain Scale Used Numeric Location Pain Location Body Site Abdomen Description Intensity of Pain at present 9 Pain Behavior Moaning Facial Grimacing IVP Administration Document 10/29/17 05:15 AD (Rec: 10/29/17 05:16 AD [id number]) Charges for Administration # of IVP Administrations 1 Ondansetron HCl (Zofran Inj) 4 mg IVP STAT STA Stop: 10/29/17 03:04 Last Admin: 10/29/17 03:30 Dose: 4 mg IVP Administration Document 10/29/17 03:30 AD (Rec: 10/29/17 03:30 AD [id number]) Charges for Administration # of IVP Administrations 1 Pantoprazole Sodium (Protonix Inj) 40 mg IVP STAT STA Stop: 10/29/17 03:04 Last Admin: 10/29/17 03:30 Dose: 40 mg IVP Administration Document 10/29/17 03:30 AD (Rec: 10/29/17 03:30 AD [id number]) Charges for Administration # of IVP Administrations 1 Disposition/Present on Arrival - Present on Arrival Any Indicators Present on Arrival: No History of DVT/PE: No History of Uncontrolled Diabetes: No Urinary Catheter: No History of Decub. Ulcer: No History Surgical Site Infection Following: None - Disposition Have Diagnosis and Disposition been Completed?: Yes Diagnosis: Enteritis, Hyperkalemia Disposition Time: 07:22 Patient Plan: Admission Patient Problems: Current Active Problems Problem Status Onset Enteritis Acute Hyperkalemia Acute Condition: STABLE Referrals: Zuleyma Collier MD [Primary Care Provider] - Follow up with primary Forms: SwitchNote (Ukrainian)
[2017-10-29 03:31] LABS: BASO # 0.02 K/mm3 (0.0-2.0); BASO % 0.1 % (0.0-3.0); EOS # 0.3 (0.0-0.7); EOS % 2.2 % (1.5-5.0); GRAN # 11.6 (1.4-6.5); GRAN % 83.2 % (50.0-68.0); LYMPH # 1.2 (1.2-3.4); LYMPH % 8.8 % (22.0-35.0); MEAN CELL VOLUME 100.7 fl (80.0-105.0); MEAN CORPUSCULAR HEMOGLOBIN 32.9 pg (25.0-35.0); MEAN CORPUSCULAR HGB CONC 32.7 g/dl (31.0-37.0); MEAN PLATELET VOLUME 10.6 fl (7.0-11.0); MONO # 0.8 (0.1-0.6); MONO % 5.7 % (1.0-6.0); RBC 4.53 10^6/uL (3.5-6.1); RED CELL DISTRIBUTION WIDTH 16.2 % (11.5-14.5); WHITE BLOOD COUNT 13.9 10^3/ul (4.5-11.0)
[2017-10-29] MEDS ORDERED: Morphine 2 mg/ml ISec IVP STA ×2 (03:35→05:07)
[2017-10-29 03:45] LABS: HEMOGLOBIN 14.9 g/dL (12.0-16.0)
[2017-10-29 03:55] LABS: INR 0.97 (0.93-1.08); PARTIAL THROMBOPLASTIN TIME 28.3 Seconds (25.1-36.5)
[2017-10-29 03:59] LABS: VENOUS BLOOD GAS PO2 193 mm/Hg (30-55); VENOUS BLOOD PH 7.35 (7.32-7.43)
[2017-10-29 04:42] LABS: TROPONIN I < 0.01 ng/mL
[2017-10-29 04:44] LABS: ALB/GLOB RATIO 1.3 (1.1-1.8); ALT/SGPT 18 U/L (7-56); AST/SGOT 27 U/L (14-36); BLOOD UREA NITROGEN 45 mg/dL (7-21); CALCIUM 9.6 mg/dL (8.4-10.5); GFR AFRICAN-AMERICAN 3; GFR NON-AFRICAN AMERICAN 3; LIPASE 240 U/L (23-300)
--- NOTE | 2017-10-29 05:49 | CT ---
EXAM: CT Abdomen and Pelvis Without Intravenous Contrast CLINICAL HISTORY: 32 years old, female; Signs and symptoms; Abdominal tenderness; Additional info: 32f, hepc, aids nephritis, esrd, abd tenderness TECHNIQUE: Axial computed tomography images of the abdomen and pelvis without intravenous contrast. All CT scans at this facility use one or more dose reduction techniques, viz.: automated exposure control; ma/kV adjustment per patient size (including targeted exams where dose is matched to indication; i.e. head); or iterative reconstruction technique. Coronal and sagittal reformatted images were created and reviewed. COMPARISON: No relevant prior studies available. FINDINGS: Limitations: Lack of intravenous contrast. Streak artifact - mild. Lower thorax: 1.1 x 1.8 x 1.8 cm dermal lesion right breast. Mild cardiomegaly. ABDOMEN: Liver: < 0.5 cm lesion. Gallbladder and bile ducts: Milk of calcium or vicarious discretion of contrast within gallbladder. No ductal dilation. Pancreas: Unremarkable. No ductal dilation. Spleen: No splenomegaly. Adrenals: No mass. Kidneys and ureters: Mild stranding about kidneys, nonspecific. Atrophic kidneys. Probable RIGHT renal cyst. No hydronephrosis. Stomach and bowel: Fluid within small bowel. Fluid/loose stool within large bowel. Several moderate to markedly thickened loops of proximal to mid small bowel. Mild stranding within associated small bowel mesentery. Few mildly distended loops of small bowel, likely ileus. Appendix: No findings to suggest acute appendicitis. PELVIS: Bladder: Collapsed bladder, limiting evaluation. No stones. Reproductive: Apparent 2.4 x 2.0 x 2.5 cm hypodense lesion within RIGHT ovary. ABDOMEN and PELVIS: Intraperitoneal space: Trace free fluid within pelvis. No free air. Bones/joints: No acute fracture. Soft tissues: Unremarkable. Vasculature: Unremarkable. No aneurysm. Lymph nodes: No pathologically enlarged lymph nodes. IMPRESSION: 1. Enteritis, nonspecific. Consider inflammatory, infectious or ischemic etiologies. 2. Possible RIGHT ovarian cyst. Suggest ultrasound. 3. Right breast lesion. Clinical correlation is needed. 4. Liver lesion. For patients with low to average risk of malignancy, no further follow-up is necessary. For patients with high risk of malignancy (known malignancy that can metastasize or other risk factors), recommend follow-up abdominal CT or MR in 6 months. 5. Incidental/non-acute findings are described above.
[2017-10-29] MEDS ORDERED: Albuterol-Ipratrop 3 mg / 0.5 (3 ml) UD IH STA (06:24)
[2017-10-29] MEDS ORDERED: Ciprofloxacin 400mg/200ml D5W 400 MG/200 ML BAG IVPB STA (07:07)
[2017-10-29] MEDS ORDERED: metroNIDAZOLE IV 500 mg/100 ml 500 MG/100 ML BAG IVPB STA (07:09)
[2017-10-29] MEDS ORDERED: GANCICLOVIR IV STA (07:24)
[2017-10-29] MEDS ORDERED: SODIUM CHLORIDE 0.9% IV STA (07:24)
[2017-10-29] MEDS ORDERED: Metoprolol 1 mg/ml Inj IVP STA ×2 (07:36→08:27)
--- NOTE | 2017-10-29 07:51 | CP.PCM.HP ---
<Rogerio Gamble - Last Filed: 10/29/17 16:04> History of Present Illness - History of Present Illness History of Present Illness: 32 year old female with past medical history of Hep C, HIV, HTN, ESRD and MWF presents with abdominal pain which began Sunday. Patients states she has missed her dialysis sessions since last Sunday. She states the abdominal pain began Sunday and located right above her naval area. She describes it as a 10/10 and states it is stabbing in quality. She also says it is worse when she eats. In addition patient states she has had multiple episodes of watery non bloody diarrhea and bilious vomiting. She also states she does not currently take any medications for the Hep C and has not taken her antiviral medications for more then 2 weeks. Patient does not recall her last CD4 count. She denies any fever, chills, sore throat, chest pain, shortness of breath or any other complaints at this time. PMD: Dr. Collier PMHX: Hep C, HIV, HTN, ESRD and MWF PSHX: right arm dialysis fistula Allergies: Shellfish Social: 8 cigarettes a day, denies alcohol or illicit drug use Meds: See OCT Fam Hx: denies Present on Admission - Present on Admission Any Indicators Present on Admission: No Review of Systems - Constitutional Constitutional: absent: Chills, Fever, Headache - Cardiovascular Cardiovascular: absent: Chest Pain, Dyspnea - Respiratory Respiratory: absent: Cough, Dyspnea - Gastrointestinal Gastrointestinal: Abdominal Pain, Diarrhea, Nausea, Vomiting - Genitourinary Genitourinary: absent: Change in Urinary Stream, Difficulty Urinating - Musculoskeletal Musculoskeletal: absent: Abnormal Gait, Back Pain, Numbness, Tingling - Integumentary Integumentary: absent: Skin Pain, Sores, Wounds - Neurological Neurological: absent: Disequilibrium, Dizziness, Headaches, Tingling, Weakness Past Patient History - Infectious Disease Hx of Infectious Diseases: None - Tetanus Immunizations Tetanus Immunization: Unknown - Past Social History Smoking Status: Light Smoker < 10 Cigarettes Daily - CARDIAC Hx Congestive Heart Failure: Yes Hx Hypertension: Yes - PULMONARY Hx Respiratory Disorders: Yes Hx Bronchitis: Yes - NEUROLOGICAL Hx Neurological Disorder: No - HEENT Hx HEENT Problems: No - RENAL Hx Chronic Kidney Disease: Yes Hx Dialysis: Yes ([place]w/f [place]) Hx Renal Failure: Yes - ENDOCRINE/METABOLIC Hx Endocrine Disorders: No - HEMATOLOGICAL/ONCOLOGICAL Hx AIDS: Yes Hx Hepatitis C: Yes - INTEGUMENTARY Hx Dermatological Problems: No - MUSCULOSKELETAL/RHEUMATOLOGICAL Hx Musculoskeletal Disorders: No - GASTROINTESTINAL Hx Pancreatitis: Yes Other/Comment: pancreatitis - GENITOURINARY/GYNECOLOGICAL Hx Genitourinary Disorders: No - PSYCHIATRIC Hx Anxiety: Yes Hx Depression: Yes Hx Substance Use: No - SURGICAL HISTORY Other/Comment: right arm AV fistula - ANESTHESIA Hx Anesthesia: Yes Hx Anesthesia Reactions: No Hx Malignant Hyperthermia: No Meds Allergies/Adverse Reactions: Allergies Allergy/AdvReac Type Severity Reaction Status Date / Time shellfish derived Allergy ANAPHYLAXIS Verified 10/29/17 18:25 Physical Exam - Constitutional Appears: Non-toxic, No Acute Distress - Head Exam Head Exam: ATRAUMATIC, NORMAL INSPECTION, NORMOCEPHALIC - Eye Exam Eye Exam: EOMI, Normal appearance - ENT Exam ENT Exam: Mucous Membranes Moist, Normal Exam - Neck Exam Neck exam: Negative for: Lymphadenopathy - Respiratory Exam Respiratory Exam: Clear to Auscultation Bilateral, NORMAL BREATHING PATTERN - Cardiovascular Exam Cardiovascular Exam: REGULAR RHYTHM, +S1, +S2 - GI/Abdominal Exam GI & Abdominal Exam: Soft, Tenderness - Extremities Exam Extremities exam: Positive for: pedal pulses present. Negative for: pedal edema - Neurological Exam Neurological exam: Alert, CN II-XII Intact, Oriented x3 Results - Vital Signs Recent Vital Signs: Last Vital Signs Temp 97.7 F 10/29/17 02:48 Pulse 85 10/29/17 06:20 Resp 18 10/29/17 06:20 BP 196/131 H 10/29/17 06:26 Pulse Ox 100 10/29/17 06:20 - Labs Result Diagrams: 10/29/17 03:18 10/29/17 03:18 Assessment & Plan - Assessment and Plan (Free Text) Assessment: 32 year old female with past medical history of Hep C, HIV, HTN, ESRD and MWF presents with abdominal pain which began Sunday. Patients states she has missed her dialysis sessions since last Sunday. Plan: 1. Hypertensive Urgency secondary to missed dialysis -BP: 206/136 -last dialysis was Sunday last week -Metoprolol IV 5mg given followed by Labetolol 20mg -Nephro, Cruz, Consulted, follow recs -patient going for dialysis -continue home medications for HTN -continue to monitor -Minoxidil 5mg BID started 2. Abdominal Pain with Nausea and Vomiting and Diarrhea -Reglan given -avoid Zofran due to prolonged QT -clear liquid diet -dose of Cipro and flagyl given -CT abdomen: enteritis, right ovarian cysts: consider US, right breast lesion, clinical correlation needed. liver lesion, follow up if high risk of malignnancy -GI consulted, Carlos, follow recs -ID consulted, Sarahy, follow recs -stool ova and parasites pending -C diff pending -pain control with Dilaudid PRN 3. ESRD -dialysis MWF -patient currently receiving dialysis -BUN: 45, Cr: 16.7, K: 5.9 -Nephro consulted, Cruz, follow recs -continue sensipar, started on Minoxidil 5mg BID -will monitor renal function -continue diovan 4. HIV-chronic -CD4 count pending -WBC: 13.9 -currentnly not taking antiviral medication -ID consulted will follow recs for antiviral medication 5. Hep C-chronic - AST ALT within normal limits -patient states she will be medication from PMD soon GI DVT -protonix -heparin <Callie Lehman - Last Filed: 10/30/17 15:16> Results - Vital Signs Recent Vital Signs: Last Vital Signs Temp 98.8 F 10/30/17 11:58 Pulse 125 H 10/30/17 11:58 Resp 17 10/30/17 11:58 BP 162/95 H 10/30/17 11:58 Pulse Ox 100 10/30/17 11:58 - Labs Result Diagrams: 10/30/17 06:15 10/30/17 06:15 Labs: Laboratory Results - last 24 hr 10/30/17 10/30/17 06:15 06:15 WBC 12.9 H RBC 4.45 Hgb 14.2 Hct 44.5 MCV 100.0 MCH 31.9 MCHC 31.9 RDW 16.0 H Plt Count 131 MPV 11.2 H Gran % 72.1 H Lymph % (Auto) 18.3 L [place] % (Auto) 8.2 H Eos % (Auto) 1.2 L Baso % (Auto) 0.2 Gran # 9.31 H Lymph # (Auto) 2.4 [place] # (Auto) 1.1 H Eos # (Auto) 0.2 Baso # (Auto) 0.03 Sodium 140 Potassium 4.7 Chloride 97 L Carbon Dioxide 27 Anion Gap 21 H BUN 29 H Creatinine 11.8 H* D Est GFR ( Amer) 5 Est GFR (Non-Af Amer) 4 Random Glucose 110 Calcium 9.3 Total Bilirubin 0.8 AST 23 ALT 18 Alkaline Phosphatase 121 Total Protein 7.2 Albumin 4.0 Globulin 3.2 Albumin/Globulin Ratio 1.3 Attending/Attestation - Attestation I have personally seen and examined this patient.: Yes I have fully participated in the care of the patient.: Yes I have reviewed all pertinent clinical information: Yes Notes (Text): 10/30/17 15:13 Attending note; Patient seen and examined with resident in the ER. Patient is a 32 year old female with past medical history of Hep C, HIV, hypertension, end-stage renal disease on dialysis treated with Abdominal pain and diarrhea. Patient recently ate potato salad was to be causing her symptoms. CT consistent with acute colitis. Started on Flagyl. Patient also missed dialysis on Sunday. Currently with elevated potassium and creatinine. Blood pressure is elevated. Case discussed with nephrology in detail. hemodialysis arranged for today. Stat dose of labetalol given. Monitor blood pressure closely. HIV; continue home meds. upon discharge the patient will follow-up with PMD .
[2017-10-29] MEDS ORDERED: Labetalol 5 mg/ml Inj 20ML IV STA (09:05)
--- NOTE | 2017-10-29 09:48 | CARD ---
APPROVED REPORT EKG Measurement Heart [id number] HI [id number] [id number] <Conclusion> Normal sinus rhythm Nonspecific ST abnormality Abnormal ECG
--- NOTE | 2017-10-29 11:32 | CP.PCM.CON ---
History of Present Illness - History of Present Illness History of Present Illness: Initial Nephrology Consultation: Assessment: critical HTN urgency. missed HD and hyperkalemia Acute gastroenteritis ? viral/food borne Hypertensive Chronic Kidney Disease (I12.0) End stage renal disease (N18.6) dependence on hemodialysis (Z99.2) (MWF) via AVF Hyperphosphatemia (E83.39), Secondary Hyperparathyroidism (E21.1), HTN (I12.0) HIV/AIDS on HAART Plan: Will plan for HD today as ordered. Continue with Nephrovite 1 tab/day. Not on FARHANA as, last Hb 14.9 Continue with phos binders home dose Continue with sensipar BP control with meds as ordered. Patient on RAAS pawan as diovan. will add minoxidil 5 mg bid. ? compliance to meds at home. Glycemic control, Dialysis consistent diet Further work up/management as per primary team Dose meds/antibiotics (if needed) for ESRD status. Avoid fleets enema/magnesium based laxatives. Thanks for allowing me to participate in care of your patient. Will follow patient with you. Please call if any Qs. d/w team Dr Bryan Arroyo Office: [phone] Chief Complaint;Abdomen pain HPI: Pt is a 32 F with hx of ESRD on hemodialysis (MWF) via AVF, last dialysis wed, hyperphosphatemia, secondary hyperparathyroidism, hypertension, HIV/AIDS on HAART presented with complaints of abdomen pain with nausea/vomitting and diarrhoea x 1 day. her mother also with similar symptoms she is on HD x 6 years. denies headache/blurry vision ROS: Cardiovascular: No chest pain. Pulmonary: No shortness of breath Gastrointestinal:c/o abdominal pain c/o nausea. c/o vomiting. Genitourinary: makes minimal urine All other negative except as mentioned in HPI. Physical Examination: General Appearance: Comfortable, in no acute respiratory distress, co-operative . Vitals reviewed and noted as below Head; Atraumatic, normocephalic ENT: no ulcers no thrush. Tongue is midline. Oropharynx: no rash or ulcers. EYES: Pupils are equal, round and reactive to light accommodation. Eye muscles and extraocular movement intact. Sclera is anicteric. Neck; supple no lymphadenopathy, no thyromegaly or bruit Lungs: Normal respiratory rate/effort. Breath sounds bilateral equal and clear Heart: Normal rate. s1s2 normal. No rub or gallop. Extremities: no edema. No varicose veins Neurological: Patient is alert, awake and oriented to person, place and time. No focal deficit. Strength bilateral appropriate and equal Skin: Warm and dry. Normal turgor. No rash. Palpitation: Normal elasticity for age Abdomen: Abdomen is soft. Bowel sounds +. There is out of proportion abdominal tenderness to exam with guarding no rigidity/rebound or organomegaly Psych: normal insight and normal affect/mood MSK: no joint tenderness or swelling. Digits and nails normal, no deformity : kidney or bladder not palpable Access: AVF Labs/imaging reviewed. Past medical history, past surgical history, family history, social history, allergy reviewed and noted as below Family Hx: no hx of CKD. Non contributory Past Patient History - Infectious Disease Hx of Infectious Diseases: None - Tetanus Immunizations Tetanus Immunization: Unknown - Past Social History Smoking Status: Light Smoker < 10 Cigarettes Daily - CARDIAC Hx Congestive Heart Failure: Yes Hx Hypertension: Yes - PULMONARY Hx Respiratory Disorders: Yes Hx Bronchitis: Yes - NEUROLOGICAL Hx Neurological Disorder: No - HEENT Hx HEENT Problems: No - RENAL Hx Chronic Kidney Disease: Yes Hx Dialysis: Yes (m/w/f [place]) Hx Renal Failure: Yes - ENDOCRINE/METABOLIC Hx Endocrine Disorders: No - HEMATOLOGICAL/ONCOLOGICAL Hx AIDS: Yes Hx Hepatitis C: Yes - INTEGUMENTARY Hx Dermatological Problems: No - MUSCULOSKELETAL/RHEUMATOLOGICAL Hx Musculoskeletal Disorders: No - GASTROINTESTINAL Hx Pancreatitis: Yes Other/Comment: pancreatitis - GENITOURINARY/GYNECOLOGICAL Hx Genitourinary Disorders: No - PSYCHIATRIC Hx Anxiety: Yes Hx Depression: Yes Hx Substance Use: No - SURGICAL HISTORY Other/Comment: right arm AV fistula - ANESTHESIA Hx Anesthesia: Yes Hx Anesthesia Reactions: No Hx Malignant Hyperthermia: No Meds Allergies/Adverse Reactions: Allergies Allergy/AdvReac Type Severity Reaction Status Date / Time shellfish derived Allergy ANAPHYLAXIS Verified 06/01/17 16:17 - Medications Medications: Current Medications Amlodipine Besylate (Norvasc) 10 mg PO DAILY [facility] Cinacalcet (Sensipar) 60 mg PO DAILY [facility] Clonidine HCl (Catapres) 0.2 mg PO TID [facility] Heparin Sodium (Porcine) (Heparin) 5,000 units SC Q12 [facility] PRN Reason: Protocol Hydromorphone HCl (Dilaudid) 0.5 mg IVP Q4H PRN PRN Reason: Pain, severe (8-10) Minoxidil (Minoxidil) 5 mg PO BID [facility] Pantoprazole Sodium (Protonix Inj) 40 mg IVP Q12 [facility] Valsartan (Diovan) 320 mg PO DAILY [facility] Vitamin B Complex/Vit C/Folic Acid (Nephro-Kristen) 1 tab PO 0800 [facility] Results - Vital Signs Recent Vital Signs: Last Vital Signs Temp 97.7 F 10/29/17 02:48 Pulse 101 H 10/29/17 09:33 Resp 17 10/29/17 09:33 BP 191/122 H 10/29/17 09:33 Pulse Ox 96 10/29/17 09:33 - Labs Result Diagrams: 10/29/17 03:18 10/29/17 03:18
[2017-10-29] MEDS: Piperacillin/Tazobact 2.25gm 2.25 GM/100 ML BAG IVPB SCH ×2 (15:06→21:26)
[2017-10-29] MEDS ORDERED: Labetalol 5 mg/ml Inj 20ML IV PRN ×2 (15:32→15:37)
--- NOTE | 2017-10-29 16:49 | CP.PCM.CON ---
History of Present Illness - History of Present Illness History of Present Illness: 32 year old female with PMH of HIV/AIDS, HIV nephropathy with ESRD on HD, hepatitis C infection, history of pancreatitis, HTN, history of pancreatitis, history of leg cellulitis came in to [facility] [place] complaining of abdominal pain which is vague as well as nausea or vomiting for the past 1-2 days. She denies fever or chills, no headache or dizziness, no blurring of vision, no rhinorrhea, no cough , no SOB, no chest pain, no sore throat, no dysuria, had some loose bowel movement. The patient denies eating anything out of the ordinary. She states that she missed her last dialysis session. In the ED, CT A/P was done which showed possible enteritis. Infectious Diseases consult is requested to further evaluate and manage. Review of Systems - Review of Systems All systems: reviewed and no additional remarkable complaints except (as per HPI ) Past Patient History - Infectious Disease Hx of Infectious Diseases: None - Tetanus Immunizations Tetanus Immunization: Unknown - Past Social History Smoking Status: Light Smoker < 10 Cigarettes Daily - CARDIAC Hx Congestive Heart Failure: Yes Hx Hypertension: Yes - PULMONARY Hx Respiratory Disorders: Yes Hx Bronchitis: Yes - NEUROLOGICAL Hx Neurological Disorder: No - HEENT Hx HEENT Problems: No - RENAL Hx Chronic Kidney Disease: Yes Hx Dialysis: Yes (m/w/f [place]) Hx Renal Failure: Yes - ENDOCRINE/METABOLIC Hx Endocrine Disorders: No - HEMATOLOGICAL/ONCOLOGICAL Hx AIDS: Yes Hx Hepatitis C: Yes - INTEGUMENTARY Hx Dermatological Problems: No - MUSCULOSKELETAL/RHEUMATOLOGICAL Hx Musculoskeletal Disorders: No - GASTROINTESTINAL Hx Pancreatitis: Yes Other/Comment: pancreatitis - GENITOURINARY/GYNECOLOGICAL Hx Genitourinary Disorders: No - PSYCHIATRIC Hx Anxiety: Yes Hx Depression: Yes Hx Substance Use: No - SURGICAL HISTORY Other/Comment: right arm AV fistula - ANESTHESIA Hx Anesthesia: Yes Hx Anesthesia Reactions: No Hx Malignant Hyperthermia: No Meds Allergies/Adverse Reactions: Allergies Allergy/AdvReac Type Severity Reaction Status Date / Time shellfish derived Allergy ANAPHYLAXIS Verified 10/29/17 12:41 - Medications Medications: Current Medications Amlodipine Besylate (Norvasc) 10 mg PO DAILY [facility] Cinacalcet (Sensipar) 60 mg PO DAILY [facility] Clonidine HCl (Catapres) 0.2 mg PO TID [facility] Heparin Sodium (Porcine) (Heparin) 5,000 units SC Q12 [facility] PRN Reason: Protocol Hydromorphone HCl (Dilaudid) 0.5 mg IVP Q4H PRN PRN Reason: Pain, severe (8-10) Pantoprazole Sodium (Protonix Inj) 40 mg IVP Q12 [facility] Valsartan (Diovan) 320 mg PO DAILY [facility] Physical Exam - Constitutional Appears: Chronically Ill - Head Exam Head Exam: NORMAL INSPECTION - ENT Exam ENT Exam: Mucous Membranes Moist - Neck Exam Neck exam: Negative for: Meningismus - Respiratory Exam Respiratory Exam: Decreased Breath Sounds - Cardiovascular Exam Cardiovascular Exam: +S1, +S2 - GI/Abdominal Exam GI & Abdominal Exam: Soft, Tenderness (mild). 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 diff. will check CD4 count and HIV VL
[2017-10-29] MEDS: HYDROmorphone 0.5 mg/0.5 ml ISec IVP PRN ×2 (17:51→22:03)
[2017-10-29] MEDS: Lopinavir/Ritonavir Tab PO SCH (17:58)
[2017-10-29] MEDS ORDERED: Influenza Vaccine 60 mcg/0.5 mL SYR (4YR UP) IM ONE (18:57)
[2017-10-29] MEDS ORDERED: Pneumococcal 23-Valent Vaccine IM ONE (18:57)
[2017-10-30] MEDS: HYDROmorphone 0.5 mg/0.5 ml ISec IVP PRN ×5 (01:48→19:46)
[2017-10-30] MEDS: Piperacillin/Tazobact 2.25gm 2.25 GM/100 ML BAG IVPB SCH ×3 (05:58→21:06)
[2017-10-30 07:01] LABS: BASO # 0.03 K/mm3 (0.0-2.0); BASO % 0.2 % (0.0-3.0); EOS # 0.2 (0.0-0.7); EOS % 1.2 % (1.5-5.0); GRAN # 9.31 (1.4-6.5); GRAN % 72.1 % (50.0-68.0); HEMOGLOBIN 14.2 g/dL (12.0-16.0); LYMPH # 2.4 (1.2-3.4); LYMPH % 18.3 % (22.0-35.0); MEAN CORPUSCULAR HEMOGLOBIN 31.9 pg (25.0-35.0); MEAN CORPUSCULAR HGB CONC 31.9 g/dl (31.0-37.0); MEAN PLATELET VOLUME 11.2 fl (7.0-11.0); MONO # 1.1 (0.1-0.6); MONO % 8.2 % (1.0-6.0); RBC 4.45 10^6/uL (3.5-6.1); WHITE BLOOD COUNT 12.9 10^3/ul (4.5-11.0)
[2017-10-30 07:58] LABS: ALB/GLOB RATIO 1.3 (1.1-1.8); CALCIUM 9.3 mg/dL (8.4-10.5)
[2017-10-30] MEDS: Multivitamin Vitamin B Complex (Nephro-Vite) Tab PO SCH (08:48)
[2017-10-30] MEDS: Lopinavir/Ritonavir Tab PO SCH ×3 (09:53→17:21)
--- NOTE | 2017-10-30 09:56 | CP.PCM.PN ---
<Rogerio Gamble - Last Filed: 10/30/17 11:22> Subjective - Date & Time of Evaluation Date of Evaluation: 10/30/17 Time of Evaluation: 06:00 - Subjective Subjective: Patient seen and evaluated bedside. No acute issues overnight. Patient states nausea and vomiting has decreased, till has abdominal pain which has improved. No chest pain or shortness of breath, or any other complaints at this time. Objective - Vital Signs/Intake and Output Vital Signs (last 24 hours): Temp Pulse Resp BP Pulse Ox 97.6 F 108 H 20 159/95 H 100 10/30/17 00:01 10/30/17 06:00 10/30/17 00:01 10/30/17 00:01 10/30/17 00:01 Intake and Output: 10/30/17 10/30/17 06:59 18:59 Intake Total 500 Output Total 0 Balance 500 - Medications Medications: Current Medications Amlodipine Besylate (Norvasc) 10 mg PO DAILY [facility] Last Admin: 10/30/17 09:53 Dose: Not Given Cinacalcet (Sensipar) 60 mg PO DAILY [facility] Last Admin: 10/30/17 09:54 Dose: Not Given Clonidine HCl (Catapres) 0.2 mg PO TID [facility] Last Admin: 10/30/17 09:52 Dose: Not Given Heparin Sodium (Porcine) (Heparin) 5,000 units SC Q12 [facility] PRN Reason: Protocol Last Admin: 10/29/17 21:25 Dose: 5,000 units Hydromorphone HCl (Dilaudid) 0.5 mg IVP Q4H PRN PRN Reason: Pain, severe (8-10) Last Admin: 10/30/17 06:44 Dose: 0.5 mg Piperacillin Sod/Tazobactam Sod (Zosyn 2.25 Gm In 0.9% 100 Ml) 2.25 gm in 100 mls @ 100 mls/hr IVPB Q8 [facility] PRN Reason: Protocol Stop: 11/05/17 14:01 Last Admin: 10/30/17 05:58 Dose: 100 mls/hr Labetalol HCl (Trandate) 20 mg IV Q6H PRN PRN Reason: Systolic Blood Pressure Last Admin: 10/29/17 15:52 Dose: 20 mg Labetalol HCl (Trandate) 200 mg PO BID [facility] Last Admin: 10/30/17 09:54 Dose: Not Given Lopinavir/Ritonavir (Kaletra 200-50 Mg) 2 cap PO BID [facility] PRN Reason: Protocol Last Admin: 10/30/17 09:53 Dose: Not Given Lorazepam (Ativan) 0.5 mg IVP Q12 PRN; Protocol PRN Reason: Motion sickness Minoxidil (Minoxidil) 5 mg PO BID [facility] Last Admin: 10/30/17 09:53 Dose: Not Given Ondansetron HCl (Zofran Inj) 4 mg IVP Q12 PRN PRN Reason: Nausea/Vomiting Last Admin: 10/29/17 17:51 Dose: 4 mg Pantoprazole Sodium (Protonix Inj) 40 mg IVP Q12 [facility] Last Admin: 10/29/17 21:13 Dose: 40 mg Raltegravir (Isentress) 400 mg PO BID [facility] PRN Reason: Protocol Last Admin: 10/30/17 09:53 Dose: Not Given Sevelamer HCl (Renagel) 2,400 mg PO TID [facility] Last Admin: 10/30/17 09:54 Dose: Not Given Valsartan (Diovan) 320 mg PO DAILY [facility] Last Admin: 10/30/17 09:53 Dose: Not Given Vitamin B Complex/Vit C/Folic Acid (Nephro-Kristen) 1 tab PO 0800 [facility] Last Admin: 10/30/17 08:48 Dose: Not Given - Labs Labs: 10/30/17 06:15 10/30/17 06:15 PT 11.0 SECONDS (9.4-12.5) 10/29/17 03:18 INR 0.97 (0.93-1.08) 10/29/17 03:18 APTT 28.3 Seconds (25.1-36.5) 10/29/17 03:18 - Constitutional Appears: Non-toxic, No Acute Distress - Head Exam Head Exam: NORMAL INSPECTION, NORMOCEPHALIC - Eye Exam Eye Exam: EOMI, Normal appearance - ENT Exam ENT Exam: Mucous Membranes Moist - Respiratory Exam Respiratory Exam: Clear to Ausculation Bilateral, NORMAL BREATHING PATTERN - Cardiovascular Exam Cardiovascular Exam: Tachycardia - GI/Abdominal Exam GI & Abdominal Exam: Tenderness, Normal Bowel Sounds - Extremities Exam Extremities Exam: absent: Pedal Edema - Neurological Exam Neurological Exam: Alert, Awake, Oriented x3 Assessment and Plan - Assessment and Plan (Free Text) Assessment: 32 year old female with past medical history of Hep C, HIV, HTN, ESRD and MWF presents with abdominal pain which began Sunday. Patients states she has missed her dialysis sessions since last Sunday. Patient admitted for HTN urgency. Plan: 1. Hypertensive Urgency secondary to missed dialysis -BP: 161/98 -dialysis performed yesterday, 3L removed -NephroCruz, Consulted, follow recs -patient will go for dialysis tomorrow -continue home medications for HTN -continue to monitor -Minoxidil 5mg BID started 2. Abdominal Pain with Nausea and Vomiting and Diarrhea -zofran -clear liquid diet to soft diet today -started on Zosyn pending cultures -CT abdomen: enteritis, right ovarian cysts: consider US, right breast lesion, clinical correlation needed. liver lesion, follow up if high risk of malignancy -Abd US: 0-49% proximal celiac stenosis, 0-49% proximal ICA stenosis, will follow GI recs -GI consulted, Carlos, follow recs -ID consulted, Sarahy, follow recs -stool ova and parasites pending -C diff pending -pain control with Dilaudid PRN 3. ESRD -dialysis MWF -3L removed on sunday -BUN: 29 Cr: 11.8, K: 4.7 -Nephro consulted, Cruz, follow recs -continue sensipar, Minoxidil 5mg BID -will monitor renal function -continue diovan -sevlemar 4. HIV-chronic -CD4 count pending -WBC: 12.9 -ID consulted will follow recs for antiviral medication -started on Isentress and Kaletra 5. Hep C-chronic - AST ALT within normal limits -patient states she will be medication from PMD soon GI DVT-protonix heparin <Rangasamy,Ajantha - Last Filed: 10/30/17 15:20> Objective - Vital Signs/Intake and Output Vital Signs (last 24 hours): Temp Pulse Resp BP Pulse Ox 98.8 F 125 H 17 162/95 H 100 10/30/17 11:58 10/30/17 11:58 10/30/17 11:58 10/30/17 11:58 10/30/17 11:58 Intake and Output: 10/30/17 10/30/17 06:59 18:59 Intake Total 500 600 Output Total 0 0 Balance 500 600 - Medications Medications: Current Medications Amlodipine Besylate (Norvasc) 10 mg PO DAILY [facility] Last Admin: 10/30/17 10:34 Dose: 10 mg Cinacalcet (Sensipar) 60 mg PO DAILY [facility] Last Admin: 10/30/17 10:35 Dose: 60 mg Clonidine HCl (Catapres) 0.2 mg PO TID [facility] Last Admin: 10/30/17 13:17 Dose: 0.2 mg Heparin Sodium (Porcine) (Heparin) 5,000 units SC Q12 [facility] PRN Reason: Protocol Last Admin: 10/30/17 10:03 Dose: 5,000 units Hydromorphone HCl (Dilaudid) 0.5 mg IVP Q4H PRN PRN Reason: Pain, severe (8-10) Last Admin: 10/30/17 10:51 Dose: 0.5 mg Piperacillin Sod/Tazobactam Sod (Zosyn 2.25 Gm In 0.9% 100 Ml) 2.25 gm in 100 mls @ 100 mls/hr IVPB Q8 [facility] PRN Reason: Protocol Stop: 11/05/17 14:01 Last Admin: 10/30/17 13:17 Dose: 100 mls/hr Labetalol HCl (Trandate) 20 mg IV Q6H PRN PRN Reason: Systolic Blood Pressure Last Admin: 10/29/17 15:52 Dose: 20 mg Labetalol HCl (Trandate) 200 mg PO BID [facility] Last Admin: 10/30/17 10:37 Dose: 200 mg Lopinavir/Ritonavir (Kaletra 200-50 Mg) 2 cap PO BID [facility] PRN Reason: Protocol Last Admin: 10/30/17 10:35 Dose: 2 cap Lorazepam (Ativan) 0.5 mg IVP Q12 PRN; Protocol PRN Reason: Motion sickness Minoxidil (Minoxidil) 5 mg PO BID [facility] Last Admin: 10/30/17 10:34 Dose: 5 mg Ondansetron HCl (Zofran Inj) 4 mg IVP Q12 PRN PRN Reason: Nausea/Vomiting Last Admin: 10/29/17 17:51 Dose: 4 mg Pantoprazole Sodium (Protonix Inj) 40 mg IVP Q12 [facility] Last Admin: 10/30/17 10:03 Dose: 40 mg Raltegravir (Isentress) 400 mg PO BID [facility] PRN Reason: Protocol Last Admin: 10/30/17 10:35 Dose: 400 mg Sevelamer HCl (Renagel) 2,400 mg PO TID [facility] Last Admin: 10/30/17 13:18 Dose: Not Given Valsartan (Diovan) 320 mg PO DAILY [facility] Last Admin: 10/30/17 10:35 Dose: 320 mg Vitamin B Complex/Vit C/Folic Acid (Nephro-Kristen) 1 tab PO 0800 [facility] Last Admin: 10/30/17 08:48 Dose: Not Given - Labs Labs: 10/30/17 06:15 10/30/17 06:15 PT 11.0 SECONDS (9.4-12.5) 10/29/17 03:18 INR 0.97 (0.93-1.08) 10/29/17 03:18 APTT 28.3 Seconds (25.1-36.5) 10/29/17 03:18 Attending/Attestation - Attestation I have personally seen and examined this patient.: Yes I have fully participated in the care of the patient.: Yes I have reviewed all pertinent clinical information, including history, physical exam and plan: Yes Notes (Text): 10/30/17 15:17 Attending note; Patient seen and examined with resident. Patient is a 32 year old female with past medical history of Hep C, HIV, hypertension, end-stage renal disease on dialysis treated with Abdominal pain and diarrhea. CT consistent with acute infectious colitis. Diarrhea is improving. Nausea vomiting is resolving. Currently on IV Zosyn. ID evaluation appreciated. GI evaluation appreciated. Abdominal Doppler is negative for ischemia. Abdominal ultrasound ordered to rule out gallstones. end-stage renal disease on dialysis; status post diaysis yesterday. hyperkalemia resolved. Blood pressure improved. Started on po meds. Stool studies pending. HIV; continue home meds. upon discharge the patient will follow-up with PMD . 10/30/17 15:19
--- NOTE | 2017-10-30 10:25 | CP.PCM.PN ---
Subjective - Date & Time of Evaluation Date of Evaluation: 10/30/17 Time of Evaluation: 10:24 - Subjective Subjective: Nephrology Consultation: Assessment: stable HTN urgency. missed HD and hyperkalemia Acute gastroenteritis ? viral/food borne Hypertensive Chronic Kidney Disease (I12.0) End stage renal disease (N18.6) dependence on hemodialysis (Z99.2) (MWF) via AVF Hyperphosphatemia (E83.39), Secondary Hyperparathyroidism (E21.1), HTN (I12.0) HIV/AIDS on HAART Plan: Will plan for HD tomorrow as ordered. Continue with Nephrovite 1 tab/day. Not on FARHANA as, last Hb 14.2 Continue with phos binders home dose Continue with sensipar BP control with meds as ordered. Patient on RAAS pawan as diovan.started minoxidil 5 mg bid and labetalol 200 mg bid. ? compliance to meds at home. Glycemic control, Dialysis consistent diet Further work up/management as per primary team Dose meds/antibiotics (if needed) for ESRD status. Avoid fleets enema/magnesium based laxatives. Thanks for allowing me to participate in care of your patient. Will follow patient with you. Please call if any Qs. d/w team Dr Bryan Arroyo Office: [phone] Chief Complaint;Abdomen pain HPI: Pt is a 32 F with hx of ESRD on hemodialysis (MWF) via [facility], last dialysis wed, hyperphosphatemia, secondary hyperparathyroidism, hypertension, HIV/AIDS on HAART presented with complaints of abdomen pain with nausea/vomitting and diarrhoea x 1 day. her mother also with similar symptoms she is on HD x 6 years. denies headache/blurry vision ROS: Cardiovascular: No chest pain. Pulmonary: No shortness of breath Gastrointestinal: improved abdominal pain no further nausea/vomiting. Genitourinary: makes minimal urine All other negative except as mentioned in HPI. Physical Examination: General Appearance: Comfortable, in no acute respiratory distress, co-operative . Vitals reviewed and noted as below Head; Atraumatic, normocephalic ENT: no ulcers no thrush. Tongue is midline. Oropharynx: no rash or ulcers. EYES: Pupils are equal, round and reactive to light accommodation. Eye muscles and extraocular movement intact. Sclera is anicteric. Neck; supple no lymphadenopathy, no thyromegaly or bruit Lungs: Normal respiratory rate/effort. Breath sounds bilateral equal and clear Heart: Normal rate. s1s2 normal. No rub or gallop. Extremities: no edema. No varicose veins Neurological: Patient is alert, awake and oriented to person, place and time. No focal deficit. Strength bilateral appropriate and equal Skin: Warm and dry. Normal turgor. No rash. Palpitation: Normal elasticity for age Abdomen: Abdomen is soft. Bowel sounds +. There is mild epigastric abdominal tenderness no guarding no rigidity/rebound or organomegaly Psych: normal insight and normal affect/mood MSK: no joint tenderness or swelling. Digits and nails normal, no deformity : kidney or bladder not palpable Access: AVF Labs/imaging reviewed. Past medical history, past surgical history, family history, social history, allergy reviewed and noted as below Family Hx: no hx of CKD. Non contributory Objective - Vital Signs/Intake and Output Vital Signs (last 24 hours): Temp Pulse Resp BP Pulse Ox 97.6 F 108 H 20 159/95 H 100 10/30/17 00:01 10/30/17 06:00 10/30/17 00:01 10/30/17 00:01 10/30/17 00:01 Intake and Output: 10/30/17 10/30/17 06:59 18:59 Intake Total 500 Output Total 0 Balance 500 - Medications Medications: Current Medications Amlodipine Besylate (Norvasc) 10 mg PO DAILY [facility] Last Admin: 10/30/17 09:53 Dose: Not Given Cinacalcet (Sensipar) 60 mg PO DAILY [facility] Last Admin: 10/30/17 09:54 Dose: Not Given Clonidine HCl (Catapres) 0.2 mg PO TID [facility] Last Admin: 10/30/17 09:52 Dose: Not Given Heparin Sodium (Porcine) (Heparin) 5,000 units SC Q12 [facility] PRN Reason: Protocol Last Admin: 10/30/17 10:03 Dose: 5,000 units Hydromorphone HCl (Dilaudid) 0.5 mg IVP Q4H PRN PRN Reason: Pain, severe (8-10) Last Admin: 10/30/17 06:44 Dose: 0.5 mg Piperacillin Sod/Tazobactam Sod (Zosyn 2.25 Gm In 0.9% 100 Ml) 2.25 gm in 100 mls @ 100 mls/hr IVPB Q8 [facility] PRN Reason: Protocol Stop: 11/05/17 14:01 Last Admin: 10/30/17 05:58 Dose: 100 mls/hr Labetalol HCl (Trandate) 20 mg IV Q6H PRN PRN Reason: Systolic Blood Pressure Last Admin: 10/29/17 15:52 Dose: 20 mg Labetalol HCl (Trandate) 200 mg PO BID [facility] Last Admin: 10/30/17 09:54 Dose: Not Given Lopinavir/Ritonavir (Kaletra 200-50 Mg) 2 cap PO BID [facility] PRN Reason: Protocol Last Admin: 10/30/17 09:53 Dose: Not Given Lorazepam (Ativan) 0.5 mg IVP Q12 PRN; Protocol PRN Reason: Motion sickness Minoxidil (Minoxidil) 5 mg PO BID [facility] Last Admin: 10/30/17 09:53 Dose: Not Given Ondansetron HCl (Zofran Inj) 4 mg IVP Q12 PRN PRN Reason: Nausea/Vomiting Last Admin: 10/29/17 17:51 Dose: 4 mg Pantoprazole Sodium (Protonix Inj) 40 mg IVP Q12 [facility] Last Admin: 10/30/17 10:03 Dose: 40 mg Raltegravir (Isentress) 400 mg PO BID [facility] PRN Reason: Protocol Last Admin: 10/30/17 09:53 Dose: Not Given Sevelamer HCl (Renagel) 2,400 mg PO TID [facility] Last Admin: 10/30/17 09:54 Dose: Not Given Valsartan (Diovan) 320 mg PO DAILY [facility] Last Admin: 10/30/17 09:53 Dose: Not Given Vitamin B Complex/Vit C/Folic Acid (Nephro-Kristen) 1 tab PO 0800 [facility] Last Admin: 10/30/17 08:48 Dose: Not Given - Labs Labs: 10/30/17 06:15 10/30/17 06:15 PT 11.0 SECONDS (9.4-12.5) 10/29/17 03:18 INR 0.97 (0.93-1.08) 10/29/17 03:18 APTT 28.3 Seconds (25.1-36.5) 10/29/17 03:18
--- NOTE | 2017-10-30 10:50 | US ---
PROCEDURE: Duplex ultrasound of the mesenteric arteries. HISTORY: Abdominal pain. Evaluate for mesenteric ischemia. PHYSICIAN(S): Eric Allison MD. TECHNIQUE: Duplex sonography with color-flow Doppler was used to evaluate limited segments of the abdominal aorta and proximal segments of the mesenteric arteries. FINDINGS: Visualization of the mesenteric arteries is adequate. The peak systolic velocity in the proximal celiac axis is 125cm/sec. This is consistent with a 0-49 percentstenosis of the proximal celiac axis. The peak systolic velocity in the proximal SMA is 120cm/sec. This is consistent with a 0 to 49% proximal SMA stenosis. The proximal SARA is patent and normal in appearance. IMPRESSION: 1. 0-49 percent proximal celiac axis stenosis. 2. 0 to 49% proximal SMA stenosis. 3. Patent proximal SARA
--- NOTE | 2017-10-30 11:17 | CP.PCM.CON ---
<Lulu Santacruz - Last Filed: 10/30/17 13:13> History of Present Illness - History of Present Illness History of Present Illness: GI Fellow PGY4 Consult Note This is a 32 year old female with past medical history of Hep C, HIV, HTN, ESRD and MWF presents with abdominal pain which began Sunday. Patients states she has missed her dialysis sessions since last Sunday. She states the abdominal pain began right after eating food that was cooked 1 week ago and included potato salad, pig feet, barbeque chicken and located right above her naval area. She also had acute diarrhea after eating. She describes it as a 10/10 and states it is stabbing in quality. She also says it is worse when she eats. In addition patient states she has had multiple episodes of watery non bloody diarrhea and bilious vomiting. However, this morning she started having 2 episodes of bloody diarrhea. She denies any prior episode of abdominal pain with food consumption and usually has a good appetite. She last vomiting prior to ER visit and 2 episodes of diarrhea last night. She also states she does not currently take any medications for the Hep C and has not taken her antiviral medications for more then 2 weeks. She reports she contracted HCV/HIV from dirty needle from tattoo, denies sexual hx or drug hx. Patient does not recall her last CD4 count. She denies any fever, chills, sore throat, chest pain, shortness of breath or any other complaints at this time. ROS: A 12pt ROS was negative except as above. PMHX: Hep C, HIV, HTN, ESRD and MWF PSHX: right arm dialysis fistula Social: 8 cigarettes a day, denies alcohol or illicit drug use FH: Denies colon cancer Past Patient History - Infectious Disease Hx of Infectious Diseases: None - Tetanus Immunizations Tetanus Immunization: Unknown - Past Social History Smoking Status: Current Some Days Smoker - CARDIAC Hx Cardiac Disorders: Yes Hx Congestive Heart Failure: Yes Hx Hypertension: Yes - PULMONARY Hx Respiratory Disorders: Yes (SMOKES P LASTS FOR 3 D) Hx Bronchitis: Yes Hx Pneumonia: Yes - NEUROLOGICAL Hx Neurological Disorder: Yes Hx Dizziness: Yes - HEENT Hx HEENT Problems: No - RENAL Hx Chronic Kidney Disease: Yes Hx Dialysis: Yes (m/w/f [facility]) Date of Last Dialysis Treatment: 10/29/17 Hx Renal Failure: Yes - ENDOCRINE/METABOLIC Hx Endocrine Disorders: No - HEMATOLOGICAL/ONCOLOGICAL Hx Blood Disorders: Yes Hx AIDS: Yes Hx Hepatitis C: Yes - INTEGUMENTARY Hx Dermatological Problems: No - MUSCULOSKELETAL/RHEUMATOLOGICAL Hx Musculoskeletal Disorders: No Hx Falls: No - GASTROINTESTINAL Hx Gastrointestinal Disorders: Yes (HEMORRHOIDS,GASTROENTERITIS) Hx Pancreatitis: Yes Other/Comment: pancreatitis - GENITOURINARY/GYNECOLOGICAL Hx Genitourinary Disorders: No (OLIGURIA) Other/Comment: R BREAST CYST - PSYCHIATRIC Hx Psychophysiologic Disorder: Yes Hx Anxiety: Yes Hx Depression: Yes Hx Substance Use: No - SURGICAL HISTORY Hx Surgeries: Yes Other/Comment: right arm AV fistula - ANESTHESIA Hx Anesthesia: Yes Hx Anesthesia Reactions: No Hx Malignant Hyperthermia: No Meds Allergies/Adverse Reactions: Allergies Allergy/AdvReac Type Severity Reaction Status Date / Time shellfish derived Allergy ANAPHYLAXIS Verified 10/29/17 18:25 - Medications Medications: Current Medications Amlodipine Besylate (Norvasc) 10 mg PO DAILY [facility] Last Admin: 10/30/17 10:34 Dose: 10 mg Cinacalcet (Sensipar) 60 mg PO DAILY [facility] Last Admin: 10/30/17 10:35 Dose: 60 mg Clonidine HCl (Catapres) 0.2 mg PO TID [facility] Last Admin: 10/30/17 10:36 Dose: 0.2 mg Heparin Sodium (Porcine) (Heparin) 5,000 units SC Q12 [facility] PRN Reason: Protocol Last Admin: 10/30/17 10:03 Dose: 5,000 units Hydromorphone HCl (Dilaudid) 0.5 mg IVP Q4H PRN PRN Reason: Pain, severe (8-10) Last Admin: 10/30/17 10:51 Dose: 0.5 mg Piperacillin Sod/Tazobactam Sod (Zosyn 2.25 Gm In 0.9% 100 Ml) 2.25 gm in 100 mls @ 100 mls/hr IVPB Q8 [facility] PRN Reason: Protocol Stop: 11/05/17 14:01 Last Admin: 10/30/17 05:58 Dose: 100 mls/hr Labetalol HCl (Trandate) 20 mg IV Q6H PRN PRN Reason: Systolic Blood Pressure Last Admin: 10/29/17 15:52 Dose: 20 mg Labetalol HCl (Trandate) 200 mg PO BID [facility] Last Admin: 10/30/17 10:37 Dose: 200 mg Lopinavir/Ritonavir (Kaletra 200-50 Mg) 2 cap PO BID [facility] PRN Reason: Protocol Last Admin: 10/30/17 10:35 Dose: 2 cap Lorazepam (Ativan) 0.5 mg IVP Q12 PRN; Protocol PRN Reason: Motion sickness Minoxidil (Minoxidil) 5 mg PO BID [facility] Last Admin: 10/30/17 10:34 Dose: 5 mg Ondansetron HCl (Zofran Inj) 4 mg IVP Q12 PRN PRN Reason: Nausea/Vomiting Last Admin: 10/29/17 17:51 Dose: 4 mg Pantoprazole Sodium (Protonix Inj) 40 mg IVP Q12 [facility] Last Admin: 10/30/17 10:03 Dose: 40 mg Raltegravir (Isentress) 400 mg PO BID [facility] PRN Reason: Protocol Last Admin: 10/30/17 10:35 Dose: 400 mg Sevelamer HCl (Renagel) 2,400 mg PO TID [facility] Last Admin: 10/30/17 10:35 Dose: 2,400 mg Valsartan (Diovan) 320 mg PO DAILY [facility] Last Admin: 10/30/17 10:35 Dose: 320 mg Vitamin B Complex/Vit C/Folic Acid (Nephro-Kristen) 1 tab PO 0800 [facility] Last Admin: 10/30/17 08:48 Dose: Not Given Physical Exam - Constitutional Appears: Non-toxic, No Acute Distress - Head Exam Head Exam: ATRAUMATIC, NORMAL INSPECTION, NORMOCEPHALIC - Eye Exam Eye Exam: EOMI, Normal appearance, PERRL - ENT Exam ENT Exam: Mucous Membranes Moist - Neck Exam Neck exam: Positive for: Normal Inspection - Respiratory Exam Respiratory Exam: Clear to Auscultation Bilateral, NORMAL BREATHING PATTERN - Cardiovascular Exam Cardiovascular Exam: REGULAR RHYTHM - GI/Abdominal Exam GI & Abdominal Exam: Normal Bowel Sounds, Soft, Tenderness. absent: Distended, Guarding, Organomegaly - Back Exam Back exam: NORMAL INSPECTION - Neurological Exam Neurological exam: Alert, Oriented x3 - Psychiatric Exam Psychiatric exam: Normal Affect, Normal Mood - Skin Skin Exam: Dry, Intact, Normal Color, Warm Results - Vital Signs Recent Vital Signs: Last Vital Signs Temp 97.6 F 10/30/17 00:01 Pulse 125 H 10/30/17 10:37 Resp 20 10/30/17 00:01 BP 161/98 H 10/30/17 10:37 Pulse Ox 100 10/30/17 00:01 - Labs Result Diagrams: 10/30/17 06:15 10/30/17 06:15 Labs: Laboratory Results - last 24 hr 10/30/17 10/30/17 06:15 06:15 WBC 12.9 H RBC 4.45 Hgb 14.2 Hct 44.5 MCV 100.0 MCH 31.9 MCHC 31.9 RDW 16.0 H Plt Count 131 MPV 11.2 H Gran % 72.1 H Lymph % (Auto) 18.3 L Person % (Auto) 8.2 H Eos % (Auto) 1.2 L Baso % (Auto) 0.2 Gran # 9.31 H Lymph # (Auto) 2.4 Person # (Auto) 1.1 H Eos # (Auto) 0.2 Baso # (Auto) 0.03 Sodium 140 Potassium 4.7 Chloride 97 L Carbon Dioxide 27 Anion Gap 21 H BUN 29 H Creatinine 11.8 H* D Est GFR ( Amer) 5 Est GFR (Non-Af Amer) 4 Random Glucose 110 Calcium 9.3 Total Bilirubin 0.8 AST 23 ALT 18 Alkaline Phosphatase 121 Total Protein 7.2 Albumin 4.0 Globulin 3.2 Albumin/Globulin Ratio 1.3 Assessment & Plan - Assessment and Plan (Free Text) Assessment: This is a 32yF presenting with abdominal pain, nausea and vomiting, diarrhea. 1. Abdominal pain, nausea and vomiting, diarrhea-possible infectious etiology, viral gastroenteritis, food poisoning 2. HIV, HCV 3. ESRD on HD Plan: -Continue supportive care with pain control and anti-emetics -Pt's symptoms developed soon after consuming food-likely gastroenteritis from food, CT imaging imaging, concern for thickened SM -Continue IV abx -Stool studies sent, fecal cx, c-diff, O/P -Abd US to r/o gallstones -Abd US with mesenteric doppler was negative for stenosis -Advance diet as tolerated -Monitor labs -Will continue to follow <Jacoby Mackey - Last Filed: 10/30/17 13:55> Meds - Medications Medications: Current Medications Amlodipine Besylate (Norvasc) 10 mg PO DAILY [facility] Last Admin: 10/30/17 10:34 Dose: 10 mg Cinacalcet (Sensipar) 60 mg PO DAILY [facility] Last Admin: 10/30/17 10:35 Dose: 60 mg Clonidine HCl (Catapres) 0.2 mg PO TID [facility] Last Admin: 10/30/17 13:17 Dose: 0.2 mg Heparin Sodium (Porcine) (Heparin) 5,000 units SC Q12 [facility] PRN Reason: Protocol Last Admin: 10/30/17 10:03 Dose: 5,000 units Hydromorphone HCl (Dilaudid) 0.5 mg IVP Q4H PRN PRN Reason: Pain, severe (8-10) Last Admin: 10/30/17 10:51 Dose: 0.5 mg Piperacillin Sod/Tazobactam Sod (Zosyn 2.25 Gm In 0.9% 100 Ml) 2.25 gm in 100 mls @ 100 mls/hr IVPB Q8 [facility] PRN Reason: Protocol Stop: 11/05/17 14:01 Last Admin: 10/30/17 13:17 Dose: 100 mls/hr Labetalol HCl (Trandate) 20 mg IV Q6H PRN PRN Reason: Systolic Blood Pressure Last Admin: 10/29/17 15:52 Dose: 20 mg Labetalol HCl (Trandate) 200 mg PO BID [facility] Last Admin: 10/30/17 10:37 Dose: 200 mg Lopinavir/Ritonavir (Kaletra 200-50 Mg) 2 cap PO BID [facility] PRN Reason: Protocol Last Admin: 10/30/17 10:35 Dose: 2 cap Lorazepam (Ativan) 0.5 mg IVP Q12 PRN; Protocol PRN Reason: Motion sickness Minoxidil (Minoxidil) 5 mg PO BID [facility] Last Admin: 10/30/17 10:34 Dose: 5 mg Ondansetron HCl (Zofran Inj) 4 mg IVP Q12 PRN PRN Reason: Nausea/Vomiting Last Admin: 10/29/17 17:51 Dose: 4 mg Pantoprazole Sodium (Protonix Inj) 40 mg IVP Q12 [facility] Last Admin: 10/30/17 10:03 Dose: 40 mg Raltegravir (Isentress) 400 mg PO BID [facility] PRN Reason: Protocol Last Admin: 10/30/17 10:35 Dose: 400 mg Sevelamer HCl (Renagel) 2,400 mg PO TID [facility] Last Admin: 10/30/17 13:18 Dose: Not Given Valsartan (Diovan) 320 mg PO DAILY [facility] Last Admin: 10/30/17 10:35 Dose: 320 mg Vitamin B Complex/Vit C/Folic Acid (Nephro-Kristen) 1 tab PO 0800 [facility] Last Admin: 10/30/17 08:48 Dose: Not Given Results - Vital Signs Recent Vital Signs: Last Vital Signs Temp 98.8 F 10/30/17 11:58 Pulse 125 H 10/30/17 11:58 Resp 17 10/30/17 11:58 BP 162/95 H 10/30/17 11:58 Pulse Ox 100 10/30/17 11:58 - Labs Result Diagrams: 10/30/17 06:15 10/30/17 06:15 Labs: Laboratory Results - last 24 hr 10/30/17 10/30/17 06:15 06:15 WBC 12.9 H RBC 4.45 Hgb 14.2 Hct 44.5 MCV 100.0 MCH 31.9 MCHC 31.9 RDW 16.0 H Plt Count 131 MPV 11.2 H Gran % 72.1 H Lymph % (Auto) 18.3 L Person % (Auto) 8.2 H Eos % (Auto) 1.2 L Baso % (Auto) 0.2 Gran # 9.31 H Lymph # (Auto) 2.4 Person # (Auto) 1.1 H Eos # (Auto) 0.2 Baso # (Auto) 0.03 Sodium 140 Potassium 4.7 Chloride 97 L Carbon Dioxide 27 Anion Gap 21 H BUN 29 H Creatinine 11.8 H* D Est GFR ( Amer) 5 Est GFR (Non-Af Amer) 4 Random Glucose 110 Calcium 9.3 Total Bilirubin 0.8 AST 23 ALT 18 Alkaline Phosphatase 121 Total Protein 7.2 Albumin 4.0 Globulin 3.2 Albumin/Globulin Ratio 1.3 Attending/Attestation - Attestation I have personally seen and examined this patient.: Yes I have fully participated in the care of the patient.: Yes I have reviewed all pertinent clinical information: Yes Notes (Text): 10/30/17 13:54 32 year old female with h/o ESRD on HD, HIV, HCV admitted with acute onset abdominal pain, N/V, and diarrhea. Suspect infectious gastroenteritis. Recommend supportive measures including hydration, antiemetics as needed. Check stool for infectious causes as above. Abdominal doppler negative for evidence of mesenteric ischemia. Recommend US gallbladder to r/o gallstones. Recommend PPI daily.
[2017-10-30 16:17] LABS: % CD4 (T HELPER CELL) 32 Percent (30-61); % CD8 (SUPPRESSOR T CELL) 30 Percent (12-42); ABSOLUTE CD4 CELLS 432 Cells/mcL (490-1740); ABSOLUTE CD8 CELLS 400 Cells/mcL (180-1170); ABSOLUTE LYMPHOCYTES 1354 Cells/mcL (850-3900); HELPER/SUPPRESSOR RATIO 1.08 Ratio (0.86-5.00)
[2017-10-30] MEDS ORDERED: Sodium Chloride 0.45% 1,000 ML IV SCH (16:30)
--- NOTE | 2017-10-30 18:56 | US ---
HISTORY: r/o gallstones COMPARISON: None. TECHNIQUE: Sonographic evaluation of the abdomen. FINDINGS: LIVER: Measures 13.2 cm. Patent portal vein. Portal venous flow: Hepatopetal. Unremarkeable echogenicity of the liver parenchyma. No mass. No intrahepatic bile duct dilatation. GALLBLADDER: Unremarkable. No gallstones. COMMON BILE DUCT: Measures 3.6 mm. No stones. No dilatation. PANCREAS: Unremarkable as visualized. No mass. No ductal dilatation. RIGHT KIDNEY: Measures 2.2 x 7.8cm. Atrophic heterogeneous kidney consistent medical renal disease. Sub cm cyst identified LEFT KIDNEY: Measures 3.3 x 7.2cm. Atrophic heterogeneous left kidney consistent medical renal disease. Sub cm cyst identified. SPLEEN: Normal in size and contour. No mass. AORTA: No aneurysmal dilatation. IVC: Unremarkable. OTHER FINDINGS: None. IMPRESSION: No significant or acute findings to account for/ related to the clinical presentation. Additional benign and/or incidental findings described above.
--- NOTE | 2017-10-30 23:42 | PN ---
DATE: 10/30/2017 SUBJECTIVE: The patient is in bed in no acute distress. The patient was seen earlier today in room 374, bed 2. OBJECTIVE: VITAL SIGNS: On exam, temperature is 98, blood pressure is 160/90. HEENT: Examination of HEENT is unremarkable. NECK: Supple. LUNGS: Have decreased breath sounds. HEART: Normal S1, S2. ABDOMEN: Soft, nontender. LABORATORY DATA: Reveals the patient's white count is down to 12,900, hemoglobin of 14. BUN of 29, creatinine of 11. CD4 count reveals the patient to have 32% CD4 with an absolute count of 432. Microbiology reveals the blood cultures are negative. Review of orders reveals the patient to be on Kaletra, Isentress, and Zosyn. The patient had abdominal ultrasound read by Dr. Stephan Pedro, which is reported no significant findings. Dr. Mackey's consultation is reviewed and appreciated. The patient also had a CT scan of the abdomen and pelvis, which is consistent with enteritis. ASSESSMENT AND PLAN: This is a 32-year-old female who was seen early this morning in room 374, bed 2, with positive HIV, positive HIV nephropathy, end-stage renal disease on hemodialysis, hepatitis C infection, history of pancreatitis, hypertension, and was admitted with abdominal pain, nausea and vomiting and found to have sepsis secondary to enteritis with relatively good T-cells of over 400, most likely not HIV related. Currently on Isentress, Kaletra, and Zosyn. Negative blood cultures; however, stool workup is still pending. We will follow closely with you. Bhargav Thrasher MD
[2017-10-31] MEDS: HYDROmorphone 0.5 mg/0.5 ml ISec IVP PRN ×2 (01:05→10:47)
[2017-10-31] MEDS: Piperacillin/Tazobact 2.25gm 2.25 GM/100 ML BAG IVPB SCH ×3 (05:40→21:43)
[2017-10-31 06:49] LABS: BASO # 0.01 K/mm3 (0.0-2.0); BASO % 0.1 % (0.0-3.0); EOS # 0.3 (0.0-0.7); EOS % 2.5 % (1.5-5.0); GRAN # 6.67 (1.4-6.5); GRAN % 65.5 % (50.0-68.0); LYMPH # 2.4 (1.2-3.4); LYMPH % 23.1 % (22.0-35.0); MEAN CELL VOLUME 98.9 fl (80.0-105.0); MEAN CORPUSCULAR HEMOGLOBIN 31.5 pg (25.0-35.0); MEAN CORPUSCULAR HGB CONC 31.9 g/dl (31.0-37.0); MEAN PLATELET VOLUME 11.9 fl (7.0-11.0); MONO # 0.9 (0.1-0.6); MONO % 8.8 % (1.0-6.0); RBC 3.49 10^6/uL (3.5-6.1); RED CELL DISTRIBUTION WIDTH 15.8 % (11.5-14.5); WHITE BLOOD COUNT 10.2 10^3/ul (4.5-11.0)
[2017-10-31 07:09] LABS: ALB/GLOB RATIO 1.1 (1.1-1.8); ALBUMIN 3.2 g/dL (3.0-4.8); CALCIUM 7.4 mg/dL (8.4-10.5)
--- NOTE | 2017-10-31 08:54 | CP.PCM.PN ---
<Lulu Santacruz - Last Filed: 10/31/17 18:48> Subjective - Date & Time of Evaluation Date of Evaluation: 10/31/17 Time of Evaluation: 07:30 - Subjective Subjective: GI Fellow PGY4 Progress Note Pt seen and evaluated at dialysis, pt reports she is starting to feels better. She only has 2 loose stools overnight. She tolerated regular diet with no vomiting but slight nausea. Abdominal pain is still there but getting better. Pt reports that pain is more muscular from vomiting. ROS: A 12pt ROS was negative except as above Objective - Vital Signs/Intake and Output Vital Signs (last 24 hours): Temp Pulse Resp BP Pulse Ox 98.7 F 103 H 18 100/60 98 10/31/17 05:50 10/31/17 05:50 10/31/17 05:50 10/31/17 05:50 10/31/17 05:50 Intake and Output: 10/31/17 10/31/17 06:59 18:59 Intake Total 1880 Output Total 0 Balance 1880 - Medications Medications: Current Medications Amlodipine Besylate (Norvasc) 10 mg PO DAILY [facility] Last Admin: 10/30/17 10:34 Dose: 10 mg Cinacalcet (Sensipar) 60 mg PO DAILY [facility] Last Admin: 10/30/17 10:35 Dose: 60 mg Clonidine HCl (Catapres) 0.2 mg PO TID [facility] Last Admin: 10/30/17 17:20 Dose: 0.2 mg Heparin Sodium (Porcine) (Heparin) 5,000 units SC Q12 [facility] PRN Reason: Protocol Last Admin: 10/30/17 21:04 Dose: 5,000 units Hydromorphone HCl (Dilaudid) 0.5 mg IVP Q4H PRN PRN Reason: Pain, severe (8-10) Last Admin: 10/31/17 01:05 Dose: 0.5 mg Piperacillin Sod/Tazobactam Sod (Zosyn 2.25 Gm In 0.9% 100 Ml) 2.25 gm in 100 mls @ 100 mls/hr IVPB Q8 [facility] PRN Reason: Protocol Stop: 11/05/17 14:01 Last Admin: 10/31/17 05:40 Dose: 100 mls/hr Sodium Chloride (Sodium Chloride 0.45%) 1,000 mls @ 75 mls/hr IV .[id number] [facility] Last Admin: 10/30/17 17:23 Dose: 75 mls/hr Labetalol HCl (Trandate) 20 mg IV Q6H PRN PRN Reason: Systolic Blood Pressure Last Admin: 10/29/17 15:52 Dose: 20 mg Labetalol HCl (Trandate) 200 mg PO BID [facility] Last Admin: 10/30/17 17:20 Dose: 200 mg Lopinavir/Ritonavir (Kaletra 200-50 Mg) 2 cap PO BID [facility] PRN Reason: Protocol Last Admin: 10/30/17 17:21 Dose: Not Given Lorazepam (Ativan) 0.5 mg IVP Q12 PRN; Protocol PRN Reason: Motion sickness Minoxidil (Minoxidil) 5 mg PO BID [facility] Last Admin: 10/30/17 17:21 Dose: Not Given Ondansetron HCl (Zofran Inj) 4 mg IVP Q12 PRN PRN Reason: Nausea/Vomiting Last Admin: 10/29/17 17:51 Dose: 4 mg Pantoprazole Sodium (Protonix Inj) 40 mg IVP Q12 [facility] Last Admin: 10/30/17 21:06 Dose: 40 mg Raltegravir (Isentress) 400 mg PO BID [facility] PRN Reason: Protocol Last Admin: 10/30/17 17:21 Dose: Not Given Sevelamer HCl (Renagel) 2,400 mg PO TID [facility] Last Admin: 10/30/17 17:21 Dose: Not Given Valsartan (Diovan) 320 mg PO DAILY [facility] Last Admin: 10/30/17 10:35 Dose: 320 mg Vitamin B Complex/Vit C/Folic Acid (Nephro-Kristen) 1 tab PO 0800 [facility] Last Admin: 10/30/17 08:48 Dose: Not Given - Labs Labs: 10/31/17 06:15 10/31/17 06:15 PT 11.0 SECONDS (9.4-12.5) 10/29/17 03:18 INR 0.97 (0.93-1.08) 10/29/17 03:18 APTT 28.3 Seconds (25.1-36.5) 10/29/17 03:18 - Constitutional Appears: Non-toxic, No Acute Distress - Head Exam Head Exam: ATRAUMATIC, NORMAL INSPECTION, NORMOCEPHALIC - Eye Exam Eye Exam: EOMI, Normal appearance, PERRL Pupil Exam: PERRL - ENT Exam ENT Exam: Mucous Membranes Moist - Neck Exam Neck Exam: Full ROM - Respiratory Exam Respiratory Exam: Clear to Ausculation Bilateral, NORMAL BREATHING PATTERN - Cardiovascular Exam Cardiovascular Exam: REGULAR RHYTHM - GI/Abdominal Exam GI & Abdominal Exam: Soft, Normal Bowel Sounds - Extremities Exam Extremities Exam: Full ROM, Normal Inspection - Back Exam Back Exam: NORMAL INSPECTION - Neurological Exam Neurological Exam: Alert, Awake, Oriented x3 - Psychiatric Exam Psychiatric exam: Normal Affect, Normal Mood - Skin Skin Exam: Dry, Intact, Normal Color, Warm Assessment and Plan - Assessment and Plan (Free Text) Assessment: This is a 32yF presenting with abdominal pain, nausea and vomiting, diarrhea. 1. Abdominal pain, nausea and vomiting, diarrhea-possible infectious etiology, viral gastroenteritis, food poisoning 2. HIV, HCV 3. ESRD on HD Plan: -Continue supportive care with pain control and anti-emetics -Pt clinically improving with less diarrhea, no vomiting and improving abdominal pain -Symptoms likely from food poisoning -Continue IV abx can change to po abx prior to discharge to complete total 7 day course -Stool studies sent, fecal cx, c-diff, O/P -Abd US to negative for gallstones -Abd US with mesenteric doppler was negative for stenosis -Continue regular diet -Monitor labs -Please call with any questions or concerns <Rivka Gonzalez - Last Filed: 10/31/17 19:38> Objective - Vital Signs/Intake and Output Vital Signs (last 24 hours): Temp Pulse Resp BP Pulse Ox 98.2 F 112 H 20 112/62 95 10/31/17 14:00 10/31/17 19:14 10/31/17 14:00 10/31/17 19:14 10/31/17 14:00 - Medications Medications: Current Medications Amlodipine Besylate (Norvasc) 10 mg PO DAILY [facility] Last Admin: 10/31/17 10:52 Dose: 10 mg Cinacalcet (Sensipar) 60 mg PO DAILY [facility] Last Admin: 10/31/17 10:47 Dose: 60 mg Clonidine HCl (Catapres) 0.2 mg PO TID [facility] Last Admin: 10/31/17 14:35 Dose: Not Given Heparin Sodium (Porcine) (Heparin) 5,000 units SC Q12 [facility] PRN Reason: Protocol Last Admin: 10/31/17 10:48 Dose: 5,000 units Hydromorphone HCl (Dilaudid) 0.5 mg IVP Q4H PRN PRN Reason: Pain, severe (8-10) Last Admin: 10/31/17 10:47 Dose: 0.5 mg Piperacillin Sod/Tazobactam Sod (Zosyn 2.25 Gm In 0.9% 100 Ml) 2.25 gm in 100 mls @ 100 mls/hr IVPB Q8 [facility] PRN Reason: Protocol Stop: 11/05/17 14:01 Last Admin: 10/31/17 16:50 Dose: 100 mls/hr Sodium Chloride (Sodium Chloride 0.45%) 1,000 mls @ 75 mls/hr IV .[id number] [facility] Last Admin: 10/30/17 17:23 Dose: 75 mls/hr Labetalol HCl (Trandate) 20 mg IV Q6H PRN PRN Reason: Systolic Blood Pressure Last Admin: 10/29/17 15:52 Dose: 20 mg Labetalol HCl (Trandate) 200 mg PO BID [facility] Last Admin: 10/31/17 19:14 Dose: 200 mg Lopinavir/Ritonavir (Kaletra 200-50 Mg) 2 cap PO BID [facility] PRN Reason: Protocol Last Admin: 10/31/17 19:13 Dose: 2 cap Lorazepam (Ativan) 0.5 mg IVP Q12 PRN; Protocol PRN Reason: Motion sickness Minoxidil (Minoxidil) 5 mg PO BID [facility] Last Admin: 10/31/17 19:13 Dose: 5 mg Ondansetron HCl (Zofran Inj) 4 mg IVP Q12 PRN PRN Reason: Nausea/Vomiting Last Admin: 10/29/17 17:51 Dose: 4 mg Pantoprazole Sodium (Protonix Ec Tab) 40 mg PO Q12 [facility] Raltegravir (Isentress) 400 mg PO BID [facility] PRN Reason: Protocol Last Admin: 10/31/17 19:12 Dose: 400 mg Sevelamer HCl (Renagel) 2,400 mg PO TID [facility] Last Admin: 10/31/17 19:15 Dose: 2,400 mg Valsartan (Diovan) 320 mg PO DAILY [facility] Last Admin: 10/31/17 10:48 Dose: 320 mg Vitamin B Complex/Vit C/Folic Acid (Nephro-Kristen) 1 tab PO 0800 [facility] Last Admin: 10/31/17 10:48 Dose: 1 tab - Labs Labs: 10/31/17 06:15 10/31/17 06:15 PT 11.0 SECONDS (9.4-12.5) 10/29/17 03:18 INR 0.97 (0.93-1.08) 10/29/17 03:18 APTT 28.3 Seconds (25.1-36.5) 10/29/17 03:18 Attending/Attestation - Attestation I have personally seen and examined this patient.: Yes I have fully participated in the care of the patient.: Yes I have reviewed all pertinent clinical information, including history, physical exam and plan: Yes Notes (Text): 10/31/17 19:36 Patient seen with GI fellow. This is a 32 year old female with h/o ESRD on HD, HIV, HCV admitted with acute onset abdominal pain, N/V, and diarrhea now resolving and tolerating diet. Suspect infectious gastroenteritis. Recommend supportive measures including hydration, anti emetics as needed. Abdominal doppler negative for evidence of mesenteric ischemia. US gallbladder negative for gallstones. Recommend PPI daily. Thank you for letting us participate in the care of your patient
--- NOTE | 2017-10-31 09:57 | CP.PCM.PN ---
<Rogerio Gamble - Last Filed: 10/31/17 10:01> Subjective - Date & Time of Evaluation Date of Evaluation: 10/31/17 Time of Evaluation: 06:00 - Subjective Subjective: Pt seen and evaluated at dialysis, pt says she is feeling better. She had only 2 episodes of loose stools. She tolerated regular diet with no vomiting but slight nausea but wanted something more to eat. Abdominal pain is still there but getting better. Patient denies any chest pain, shortness of breath or any other additional complaints. Objective - Vital Signs/Intake and Output Vital Signs (last 24 hours): Temp Pulse Resp BP Pulse Ox 98.7 F 103 H 18 100/60 98 10/31/17 05:50 10/31/17 05:50 10/31/17 05:50 10/31/17 05:50 10/31/17 05:50 Intake and Output: 10/31/17 10/31/17 06:59 18:59 Intake Total 1880 Output Total 0 Balance 1880 - Medications Medications: Current Medications Amlodipine Besylate (Norvasc) 10 mg PO DAILY [facility] Last Admin: 10/30/17 10:34 Dose: 10 mg Cinacalcet (Sensipar) 60 mg PO DAILY [facility] Last Admin: 10/30/17 10:35 Dose: 60 mg Clonidine HCl (Catapres) 0.2 mg PO TID [facility] Last Admin: 10/30/17 17:20 Dose: 0.2 mg Heparin Sodium (Porcine) (Heparin) 5,000 units SC Q12 [facility] PRN Reason: Protocol Last Admin: 10/30/17 21:04 Dose: 5,000 units Hydromorphone HCl (Dilaudid) 0.5 mg IVP Q4H PRN PRN Reason: Pain, severe (8-10) Last Admin: 10/31/17 01:05 Dose: 0.5 mg Piperacillin Sod/Tazobactam Sod (Zosyn 2.25 Gm In 0.9% 100 Ml) 2.25 gm in 100 mls @ 100 mls/hr IVPB Q8 [facility] PRN Reason: Protocol Stop: 11/05/17 14:01 Last Admin: 10/31/17 05:40 Dose: 100 mls/hr Sodium Chloride (Sodium Chloride 0.45%) 1,000 mls @ 75 mls/hr IV .[id number] [facility] Last Admin: 10/30/17 17:23 Dose: 75 mls/hr Labetalol HCl (Trandate) 20 mg IV Q6H PRN PRN Reason: Systolic Blood Pressure Last Admin: 10/29/17 15:52 Dose: 20 mg Labetalol HCl (Trandate) 200 mg PO BID [facility] Last Admin: 10/30/17 17:20 Dose: 200 mg Lopinavir/Ritonavir (Kaletra 200-50 Mg) 2 cap PO BID [facility] PRN Reason: Protocol Last Admin: 10/30/17 17:21 Dose: Not Given Lorazepam (Ativan) 0.5 mg IVP Q12 PRN; Protocol PRN Reason: Motion sickness Minoxidil (Minoxidil) 5 mg PO BID [facility] Last Admin: 10/30/17 17:21 Dose: Not Given Ondansetron HCl (Zofran Inj) 4 mg IVP Q12 PRN PRN Reason: Nausea/Vomiting Last Admin: 10/29/17 17:51 Dose: 4 mg Pantoprazole Sodium (Protonix Inj) 40 mg IVP Q12 [facility] Last Admin: 10/30/17 21:06 Dose: 40 mg Raltegravir (Isentress) 400 mg PO BID [facility] PRN Reason: Protocol Last Admin: 10/30/17 17:21 Dose: Not Given Sevelamer HCl (Renagel) 2,400 mg PO TID [facility] Last Admin: 10/30/17 17:21 Dose: Not Given Valsartan (Diovan) 320 mg PO DAILY [facility] Last Admin: 10/30/17 10:35 Dose: 320 mg Vitamin B Complex/Vit C/Folic Acid (Nephro-Kristen) 1 tab PO 0800 [facility] Last Admin: 10/30/17 08:48 Dose: Not Given - Labs Labs: 10/31/17 06:15 10/31/17 06:15 PT 11.0 SECONDS (9.4-12.5) 10/29/17 03:18 INR 0.97 (0.93-1.08) 10/29/17 03:18 APTT 28.3 Seconds (25.1-36.5) 10/29/17 03:18 - Constitutional Appears: Non-toxic, No Acute Distress - Head Exam Head Exam: ATRAUMATIC, NORMAL INSPECTION, NORMOCEPHALIC - Eye Exam Eye Exam: EOMI, Normal appearance - ENT Exam ENT Exam: Mucous Membranes Moist - Respiratory Exam Respiratory Exam: Clear to Ausculation Bilateral, NORMAL BREATHING PATTERN - Cardiovascular Exam Cardiovascular Exam: Tachycardia - GI/Abdominal Exam GI & Abdominal Exam: Tenderness Additional comments: slight tenderness epigastric area - Extremities Exam Extremities Exam: absent: Pedal Edema Additional comments: right arm dialysis fistula - Neurological Exam Neurological Exam: Alert, Awake, Oriented x3 Assessment and Plan - Assessment and Plan (Free Text) Assessment: 32 year old female with past medical history of Hep C, HIV, HTN, ESRD and MWF presents with abdominal pain which began Sunday. Patients states she has missed her dialysis sessions since last Sunday. Patient admitted for HTN urgency. Plan: 1. Hypertensive Urgency secondary to missed dialysis -BP: 143/80 -dialysis performed today -Cruz Saab, Consulted, follow recs -continue home medications for HTN inlcuding labetolol 200 BID -continue to monitor -Minoxidil 5mg BID 2. Abdominal Pain with Nausea and Vomiting and Diarrhea -zofran -soft diet to regualr renal diet today -started on Zosyn pending cultures -CT abdomen: enteritis, right ovarian cysts: consider US, right breast lesion, clinical correlation needed. liver lesion, follow up if high risk of malignancy -Abd US to negative for gallstones -Abd US with mesenteric doppler was negative for stenosis -GI consultedCarlos, follow recs -ID consulted, Sarahy, follow recs -stool ova and parasites pending -C diff pending -pain control with Dilaudid PRN 3. ESRD -dialysis MWF, dialysis today -BUN: 33 Cr: 14.6, K: 4.0 -Nephro consulted, Cruz, follow recs -continue sensipar, Minoxidil 5mg BID -will monitor renal function -continue diovan -sevlemar 4. HIV-chronic -CD4 432 -CD8:400 -WBC: 10.2 -ID consulted will follow recs for antiviral medication -Isentress and Kaletra 5. Hep C-chronic -AST ALT within normal limits -patient states she will be medication from PMD soon GI DVT-protonix heparin <Rangasamy,Ajantha - Last Filed: 11/01/17 15:15> Objective - Vital Signs/Intake and Output Vital Signs (last 24 hours): Temp Pulse Resp BP Pulse Ox 98 F 87 16 104/60 98 11/01/17 06:00 11/01/17 11:04 11/01/17 06:00 11/01/17 11:04 11/01/17 06:00 Intake and Output: 11/01/17 11/01/17 06:59 18:59 Intake Total 240 360 Balance 240 360 - Medications Medications: Current Medications Amlodipine Besylate (Norvasc) 10 mg PO DAILY [facility] Last Admin: 11/01/17 11:03 Dose: Not Given Darbepoetin Farrukh (Aranesp) 40 mcg IVP ONCE ONE Stop: 11/02/17 11:14 Heparin Sodium (Porcine) (Heparin) 5,000 units SC Q12 [facility] PRN Reason: Protocol Last Admin: 11/01/17 11:01 Dose: 5,000 units Hydromorphone HCl (Dilaudid) 0.5 mg IVP Q4H PRN PRN Reason: Pain, severe (8-10) Last Admin: 10/31/17 10:47 Dose: 0.5 mg Piperacillin Sod/Tazobactam Sod (Zosyn 2.25 Gm In 0.9% 100 Ml) 2.25 gm in 100 mls @ 100 mls/hr IVPB Q8 [facility] PRN Reason: Protocol Stop: 11/05/17 14:01 Last Admin: 11/01/17 14:30 Dose: 100 mls/hr Sodium Chloride (Sodium Chloride 0.45%) 1,000 mls @ 75 mls/hr IV .[id number] [facility] Last Admin: 10/30/17 17:23 Dose: 75 mls/hr Labetalol HCl (Trandate) 20 mg IV Q6H PRN PRN Reason: Systolic Blood Pressure Last Admin: 10/29/17 15:52 Dose: 20 mg Labetalol HCl (Trandate) 200 mg PO BID [facility] Last Admin: 11/01/17 11:04 Dose: Not Given Lopinavir/Ritonavir (Kaletra 200-50 Mg) 2 cap PO BID [facility] PRN Reason: Protocol Last Admin: 11/01/17 11:02 Dose: 2 cap Lorazepam (Ativan) 0.5 mg IVP Q12 PRN; Protocol PRN Reason: Motion sickness Minoxidil (Minoxidil) 5 mg PO BID [facility] Last Admin: 11/01/17 11:03 Dose: Not Given Ondansetron HCl (Zofran Inj) 4 mg IVP Q12 PRN PRN Reason: Nausea/Vomiting Last Admin: 10/31/17 21:52 Dose: 4 mg Pantoprazole Sodium (Protonix Ec Tab) 40 mg PO Q12 [facility] Last Admin: 11/01/17 11:03 Dose: 40 mg Raltegravir (Isentress) 400 mg PO BID [facility] PRN Reason: Protocol Last Admin: 11/01/17 11:02 Dose: 400 mg Sevelamer HCl (Renagel) 2,400 mg PO TID [facility] Last Admin: 11/01/17 14:30 Dose: 2,400 mg Valsartan (Diovan) 320 mg PO DAILY [facility] Last Admin: 11/01/17 11:01 Dose: Not Given Vitamin B Complex/Vit C/Folic Acid (Nephro-Kristen) 1 tab PO 0800 [facility] Last Admin: 11/01/17 08:19 Dose: 1 tab - Labs Labs: 11/01/17 06:45 11/01/17 06:45 PT 11.0 SECONDS (9.4-12.5) 10/29/17 03:18 INR 0.97 (0.93-1.08) 10/29/17 03:18 APTT 28.3 Seconds (25.1-36.5) 10/29/17 03:18 Attending/Attestation - Attestation I have personally seen and examined this patient.: Yes I have fully participated in the care of the patient.: Yes I have reviewed all pertinent clinical information, including history, physical exam and plan: Yes Notes (Text): 11/01/17 15:14 Attending note; Patient seen and examined with resident. Patient is a 32 year old female with past medical history of Hep C, HIV, hypertension, end-stage renal disease on dialysis treated with Abdominal pain and diarrhea. CT consistent with acute infectious colitis. Diarrhea is improving. Nausea vomiting is resolving. Currently on IV Zosyn. ID evaluation appreciated. GI evaluation appreciated. Abdominal Doppler is negative for ischemia. Abdominal ultrasound ordered to rule out gallstones. Started on liquid diet. Advance as tolerated. Getting dialysis today. Blood pressure improved. Started on po meds. Stool studies negative for C. difficile. HIV; continue home meds. upon discharge the patient will follow-up with PMD .
[2017-10-31] MEDS: Lopinavir/Ritonavir Tab PO SCH ×2 (10:47→19:13)
[2017-10-31] MEDS: Multivitamin Vitamin B Complex (Nephro-Vite) Tab PO SCH (10:48)
--- NOTE | 2017-10-31 12:09 | CP.PCM.PN ---
Subjective - Date & Time of Evaluation Date of Evaluation: 10/31/17 Time of Evaluation: 12:08 - Subjective Subjective: Nephrology Consultation: Assessment: stable HTN urgency. missed HD and hyperkalemia Acute gastroenteritis ? viral/food borne Hypertensive Chronic Kidney Disease (I12.0) End stage renal disease (N18.6) dependence on hemodialysis (Z99.2) (MWF) via AVF Hyperphosphatemia (E83.39), Secondary Hyperparathyroidism (E21.1), HTN (I12.0) HIV/AIDS on HAART Plan: Will plan for HD today as ordered. Continue with Nephrovite 1 tab/day. Not on FARHANA as, last Hb 11 Continue with phos binders home dose Continue with sensipar BP control with meds as ordered. Patient on RAAS pawan as diovan. started minoxidil 5 mg bid and labetalol 200 mg bid. ? compliance to meds at home. Glycemic control, Dialysis consistent diet Further work up/management as per primary team Dose meds/antibiotics (if needed) for ESRD status. Avoid fleets enema/magnesium based laxatives. please consult surgery for suture removal at AVF site Thanks for allowing me to participate in care of your patient. Will follow patient with you. Please call if any Qs. d/w team Dr Bryan Arroyo Office: [phone] HPI: Pt is a 32 F with hx of ESRD on hemodialysis (MWF) via AVF, last dialysis wed, hyperphosphatemia, secondary hyperparathyroidism, hypertension, HIV/AIDS on HAART presented with complaints of abdomen pain with nausea/vomitting and diarrhoea x 1 day. her mother also with similar symptoms she is on HD x 6 years. denies headache/blurry vision ROS: Cardiovascular: No chest pain. Pulmonary: No shortness of breath Gastrointestinal: improved abdominal pain no further nausea/vomiting. Genitourinary: makes minimal urine All other negative except as mentioned in HPI. Physical Examination: General Appearance: Comfortable, in no acute respiratory distress, co-operative . Vitals reviewed and noted as below Head; Atraumatic, normocephalic ENT: no ulcers no thrush. Tongue is midline. Oropharynx: no rash or ulcers. EYES: Pupils are equal, round and reactive to light accommodation. Eye muscles and extraocular movement intact. Sclera is anicteric. Neck; supple no lymphadenopathy, no thyromegaly or bruit Lungs: Normal respiratory rate/effort. Breath sounds bilateral equal and clear Heart: Normal rate. s1s2 normal. No rub or gallop. Extremities: no edema. No varicose veins Neurological: Patient is alert, awake and oriented to person, place and time. No focal deficit. Strength bilateral appropriate and equal Skin: Warm and dry. Normal turgor. No rash. Palpitation: Normal elasticity for age Abdomen: Abdomen is soft. Bowel sounds +. There is mild epigastric abdominal tenderness no guarding no rigidity/rebound or organomegaly Psych: normal insight and normal affect/mood MSK: no joint tenderness or swelling. Digits and nails normal, no deformity : kidney or bladder not palpable Access: AVF Labs/imaging reviewed. Past medical history, past surgical history, family history, social history, allergy reviewed and noted as below Family Hx: no hx of CKD. Non contributory Objective - Vital Signs/Intake and Output Vital Signs (last 24 hours): Temp Pulse Resp BP Pulse Ox 98.7 F 99 H 18 148/72 98 10/31/17 05:50 10/31/17 10:49 10/31/17 05:50 10/31/17 10:52 10/31/17 05:50 Intake and Output: 10/31/17 10/31/17 06:59 18:59 Intake Total 1880 Output Total 0 Balance 1880 - Medications Medications: Current Medications Amlodipine Besylate (Norvasc) 10 mg PO DAILY [facility] Last Admin: 10/31/17 10:52 Dose: 10 mg Cinacalcet (Sensipar) 60 mg PO DAILY [facility] Last Admin: 10/31/17 10:47 Dose: 60 mg Clonidine HCl (Catapres) 0.2 mg PO TID [facility] Last Admin: 10/31/17 10:48 Dose: 0.2 mg Heparin Sodium (Porcine) (Heparin) 5,000 units SC Q12 [facility] PRN Reason: Protocol Last Admin: 10/31/17 10:48 Dose: 5,000 units Hydromorphone HCl (Dilaudid) 0.5 mg IVP Q4H PRN PRN Reason: Pain, severe (8-10) Last Admin: 10/31/17 10:47 Dose: 0.5 mg Piperacillin Sod/Tazobactam Sod (Zosyn 2.25 Gm In 0.9% 100 Ml) 2.25 gm in 100 mls @ 100 mls/hr IVPB Q8 [facility] PRN Reason: Protocol Stop: 11/05/17 14:01 Last Admin: 10/31/17 05:40 Dose: 100 mls/hr Sodium Chloride (Sodium Chloride 0.45%) 1,000 mls @ 75 mls/hr IV .[id number] [facility] Last Admin: 10/30/17 17:23 Dose: 75 mls/hr Labetalol HCl (Trandate) 20 mg IV Q6H PRN PRN Reason: Systolic Blood Pressure Last Admin: 10/29/17 15:52 Dose: 20 mg Labetalol HCl (Trandate) 200 mg PO BID [facility] Last Admin: 10/31/17 10:49 Dose: 200 mg Lopinavir/Ritonavir (Kaletra 200-50 Mg) 2 cap PO BID [facility] PRN Reason: Protocol Last Admin: 10/31/17 10:47 Dose: 2 cap Lorazepam (Ativan) 0.5 mg IVP Q12 PRN; Protocol PRN Reason: Motion sickness Minoxidil (Minoxidil) 5 mg PO BID [facility] Last Admin: 10/31/17 10:49 Dose: 5 mg Ondansetron HCl (Zofran Inj) 4 mg IVP Q12 PRN PRN Reason: Nausea/Vomiting Last Admin: 10/29/17 17:51 Dose: 4 mg Pantoprazole Sodium (Protonix Ec Tab) 40 mg PO Q12 [facility] Raltegravir (Isentress) 400 mg PO BID [facility] PRN Reason: Protocol Last Admin: 10/31/17 10:49 Dose: 400 mg Sevelamer HCl (Renagel) 2,400 mg PO TID [facility] Last Admin: 10/31/17 10:49 Dose: 2,400 mg Valsartan (Diovan) 320 mg PO DAILY [facility] Last Admin: 10/31/17 10:48 Dose: 320 mg Vitamin B Complex/Vit C/Folic Acid (Nephro-Kristen) 1 tab PO 0800 [facility] Last Admin: 10/31/17 10:48 Dose: 1 tab - Labs Labs: 10/31/17 06:15 10/31/17 06:15 PT 11.0 SECONDS (9.4-12.5) 10/29/17 03:18 INR 0.97 (0.93-1.08) 10/29/17 03:18 APTT 28.3 Seconds (25.1-36.5) 10/29/17 03:18
[2017-10-31] MEDS: Pantoprazole 40 mg EC Tab PO SCH (21:43)
--- NOTE | 2017-11-01 03:41 | PN ---
DATE: 10/31/2017 SUBJECTIVE: Patient is in bed, in no acute distress, nontoxic, was seen earlier this morning. PHYSICAL EXAMINATION: VITAL SIGNS: Temperature is 98, blood pressure is , respiratory rate of 16. HEENT: Unremarkable. NECK: Supple. LUNGS: Have decreased breath sounds. HEART: Normal S1 and S2. ABDOMEN: Soft. LABORATORY EXAMINATION: Reveals a white count of 10,000, hemoglobin of 11. Chemistries reveal a BUN of 33, creatinine of . Immunology is noted. Serology: HIV is undetectable. T-cells are 432 with 32%. Blood cultures are reportedly negative. ASSESSMENT AND PLAN: This is a 32-year-old female, seen early this morning with positive human immunodeficiency virus and human immunodeficiency virus nephropathy, end-stage renal disease, on hemodialysis, hepatitis C infection, history of pancreatitis, hypertension, admitted with abdominal pain, nausea and vomiting, was found to have sepsis secondary to enteritis with relatively good T-cells. Notably, the patient is doing much improved, on Zosyn. Bhargav Thrasher MD
[2017-11-01] MEDS: Piperacillin/Tazobact 2.25gm 2.25 GM/100 ML BAG IVPB SCH ×2 (06:00→14:30)
[2017-11-01 07:28] LABS: BASO # 0.01 K/mm3 (0.0-2.0); BASO % 0.2 % (0.0-3.0); EOS # 0.2 (0.0-0.7); EOS % 4.5 % (1.5-5.0); GRAN # 2.79 (1.4-6.5); GRAN % 52.8 % (50.0-68.0); HEMOGLOBIN 9.8 g/dL (12.0-16.0); LYMPH # 1.8 (1.2-3.4); MEAN CORPUSCULAR HEMOGLOBIN 31.6 pg (25.0-35.0); MEAN CORPUSCULAR HGB CONC 31.6 g/dl (31.0-37.0); MEAN PLATELET VOLUME 10.3 fl (7.0-11.0); MONO # 0.5 (0.1-0.6); MONO % 8.5 % (1.0-6.0); RBC 3.1 10^6/uL (3.5-6.1); RED CELL DISTRIBUTION WIDTH 15.7 % (11.5-14.5); WHITE BLOOD COUNT 5.3 10^3/ul (4.5-11.0)
[2017-11-01 07:52] LABS: ALBUMIN 2.8 g/dL (3.0-4.8); CALCIUM 6.7 mg/dL (8.4-10.5)
[2017-11-01] MEDS: Multivitamin Vitamin B Complex (Nephro-Vite) Tab PO SCH (08:19)
[2017-11-01 09:52] VITALS: RESP 16; TEMP 98; O2SAT 98
[2017-11-01] MEDS: Lopinavir/Ritonavir Tab PO SCH (11:02)
[2017-11-01] MEDS: Pantoprazole 40 mg EC Tab PO SCH (11:03)
[2017-11-01 11:10] VITALS: BP 104/60; PULSE 87
--- NOTE | 2017-11-01 14:10 | CP.PCM.PN ---
Subjective - Date & Time of Evaluation Date of Evaluation: 11/01/17 Time of Evaluation: 14:08 - Subjective Subjective: Nephrology Consultation: Assessment: stable HTN urgency. missed HD and hyperkalemia Acute gastroenteritis ? viral/food borne Hypertensive Chronic Kidney Disease (I12.0) End stage renal disease (N18.6) dependence on hemodialysis (Z99.2) (MWF) via AVF Hyperphosphatemia (E83.39), Secondary Hyperparathyroidism (E21.1), HTN (I12.0) HIV/AIDS on HAART Thrombocytopenia Plan: Will plan for HD tomorrow as ordered. Continue with Nephrovite 1 tab/day. ordered FARHANA with HD, last Hb 9.8 Continue with phos binders home dose BP control with meds as ordered. Patient on RAAS pawan as diovan. ? compliance to meds at home. can continue home meds for BP and add minoxidil 5 mg /day Glycemic control, Dialysis consistent diet Further work up/management as per primary team Dose meds/antibiotics (if needed) for ESRD status. Avoid fleets enema/magnesium based laxatives. appreciate surgery for suture removal at AVF site pt stable for d/c from renal perspective, when planned. Thanks for allowing me to participate in care of your patient. Will follow patient with you. Please call if any Qs. d/w team Dr Bryan Arroyo Office: [phone] HPI: Pt is a 32 F with hx of ESRD on hemodialysis (MWF) via AVF, last dialysis wed, hyperphosphatemia, secondary hyperparathyroidism, hypertension, HIV/AIDS on HAART presented with complaints of abdomen pain with nausea/vomitting and diarrhoea x 1 day. her mother also with similar symptoms she is on HD x 6 years. denies headache/blurry vision ROS: Cardiovascular: No chest pain. Pulmonary: No shortness of breath Gastrointestinal: no abdominal pain no further nausea/vomiting. Genitourinary: makes minimal urine All other negative except as mentioned in HPI. Physical Examination: General Appearance: Comfortable, in no acute respiratory distress, co-operative . Vitals reviewed and noted as below Head; Atraumatic, normocephalic ENT: no ulcers no thrush. Tongue is midline. Oropharynx: no rash or ulcers. EYES: Pupils are equal, round and reactive to light accommodation. Eye muscles and extraocular movement intact. Sclera is anicteric. Neck; supple no lymphadenopathy, no thyromegaly or bruit Lungs: Normal respiratory rate/effort. Breath sounds bilateral equal and clear Heart: Normal rate. s1s2 normal. No rub or gallop. Extremities: no edema. No varicose veins Neurological: Patient is alert, awake and oriented to person, place and time. No focal deficit. Strength bilateral appropriate and equal Skin: Warm and dry. Normal turgor. No rash. Palpitation: Normal elasticity for age Abdomen: Abdomen is soft. Bowel sounds +. There is no abdominal tenderness no guarding no rigidity/rebound or organomegaly Psych: normal insight and normal affect/mood MSK: no joint tenderness or swelling. Digits and nails normal, no deformity : kidney or bladder not palpable Access: AVF Labs/imaging reviewed. Past medical history, past surgical history, family history, social history, allergy reviewed and noted as below Family Hx: no hx of CKD. Non contributory Objective - Vital Signs/Intake and Output Vital Signs (last 24 hours): Temp Pulse Resp BP Pulse Ox 98 F 87 16 104/60 98 11/01/17 06:00 11/01/17 11:04 11/01/17 06:00 11/01/17 11:04 11/01/17 06:00 Intake and Output: 11/01/17 11/01/17 06:59 18:59 Intake Total 240 Balance 240 - Medications Medications: Current Medications Amlodipine Besylate (Norvasc) 10 mg PO DAILY [facility] Last Admin: 11/01/17 11:03 Dose: Not Given Darbepoetin Farrukh (Aranesp) 40 mcg IVP ONCE ONE Stop: 11/02/17 11:14 Heparin Sodium (Porcine) (Heparin) 5,000 units SC Q12 [facility] PRN Reason: Protocol Last Admin: 11/01/17 11:01 Dose: 5,000 units Hydromorphone HCl (Dilaudid) 0.5 mg IVP Q4H PRN PRN Reason: Pain, severe (8-10) Last Admin: 10/31/17 10:47 Dose: 0.5 mg Piperacillin Sod/Tazobactam Sod (Zosyn 2.25 Gm In 0.9% 100 Ml) 2.25 gm in 100 mls @ 100 mls/hr IVPB Q8 [facility] PRN Reason: Protocol Stop: 11/05/17 14:01 Last Admin: 11/01/17 06:00 Dose: 100 mls/hr Sodium Chloride (Sodium Chloride 0.45%) 1,000 mls @ 75 mls/hr IV .[id number] [facility] Last Admin: 10/30/17 17:23 Dose: 75 mls/hr Labetalol HCl (Trandate) 20 mg IV Q6H PRN PRN Reason: Systolic Blood Pressure Last Admin: 10/29/17 15:52 Dose: 20 mg Labetalol HCl (Trandate) 200 mg PO BID [facility] Last Admin: 11/01/17 11:04 Dose: Not Given Lopinavir/Ritonavir (Kaletra 200-50 Mg) 2 cap PO BID [facility] PRN Reason: Protocol Last Admin: 11/01/17 11:02 Dose: 2 cap Lorazepam (Ativan) 0.5 mg IVP Q12 PRN; Protocol PRN Reason: Motion sickness Minoxidil (Minoxidil) 5 mg PO BID [facility] Last Admin: 11/01/17 11:03 Dose: Not Given Ondansetron HCl (Zofran Inj) 4 mg IVP Q12 PRN PRN Reason: Nausea/Vomiting Last Admin: 10/31/17 21:52 Dose: 4 mg Pantoprazole Sodium (Protonix Ec Tab) 40 mg PO Q12 [facility] Last Admin: 11/01/17 11:03 Dose: 40 mg Raltegravir (Isentress) 400 mg PO BID [facility] PRN Reason: Protocol Last Admin: 11/01/17 11:02 Dose: 400 mg Sevelamer HCl (Renagel) 2,400 mg PO TID [facility] Last Admin: 11/01/17 11:03 Dose: 2,400 mg Valsartan (Diovan) 320 mg PO DAILY [facility] Last Admin: 11/01/17 11:01 Dose: Not Given Vitamin B Complex/Vit C/Folic Acid (Nephro-Kristen) 1 tab PO 0800 [facility] Last Admin: 11/01/17 08:19 Dose: 1 tab - Labs Labs: 11/01/17 06:45 11/01/17 06:45 PT 11.0 SECONDS (9.4-12.5) 10/29/17 03:18 INR 0.97 (0.93-1.08) 10/29/17 03:18 APTT 28.3 Seconds (25.1-36.5) 10/29/17 03:18
--- NOTE | 2017-11-01 14:31 | CP.PCM.DIS ---
Provider - Provider Date of Admission: 10/29/17 07:16 Attending physician: Callie Lehman MD Primary care physician: Zuleyma Collier MD Hospital Course - Lab Results Lab Results: Micro Results 10/30/17 15:45 Stool C. difficile Antigen & Toxin A,B (M - Final Most Recent Lab Values WBC 5.3 10^3/ul (4.5-11.0) D 11/01/17 06:45 RBC 3.10 10^6/uL (3.5-6.1) L 11/01/17 06:45 Hgb 9.8 g/dL (12.0-16.0) L 11/01/17 06:45 Hct 31.0 % (36.0-48.0) L 11/01/17 06:45 MCV 100.0 fl (80.0-105.0) 11/01/17 06:45 MCH 31.6 pg (25.0-35.0) 11/01/17 06:45 MCHC 31.6 g/dl (31.0-37.0) 11/01/17 06:45 RDW 15.7 % (11.5-14.5) H 11/01/17 06:45 Plt Count 85 10^3/uL (120.0-450.0) L 11/01/17 06:45 MPV 10.3 fl (7.0-11.0) 11/01/17 06:45 Gran % 52.8 % (50.0-68.0) 11/01/17 06:45 Lymph % (Auto) 34.0 % (22.0-35.0) 11/01/17 06:45 Saunders % (Auto) 8.5 % (1.0-6.0) H 11/01/17 06:45 Eos % (Auto) 4.5 % (1.5-5.0) 11/01/17 06:45 Baso % (Auto) 0.2 % (0.0-3.0) 11/01/17 06:45 Gran # 2.79 (1.4-6.5) 11/01/17 06:45 Lymph # (Auto) 1.8 (1.2-3.4) 11/01/17 06:45 Saunders # (Auto) 0.5 (0.1-0.6) 11/01/17 06:45 Eos # (Auto) 0.2 (0.0-0.7) 11/01/17 06:45 Baso # (Auto) 0.01 K/mm3 (0.0-2.0) 11/01/17 06:45 PT 11.0 SECONDS (9.4-12.5) 10/29/17 03:18 INR 0.97 (0.93-1.08) 10/29/17 03:18 APTT 28.3 Seconds (25.1-36.5) 10/29/17 03:18 pO2 193 mm/Hg (30-55) H 10/29/17 03:18 VBG pH 7.35 (7.32-7.43) 10/29/17 03:18 VBG pCO2 34.0 (40-60) L 10/29/17 03:18 VBG HCO3 18.8 mmol/l (21-28) L 10/29/17 03:18 VBG Total CO2 19.8 mmol.L (22-28) L 10/29/17 03:18 VBG O2 Sat (Calc) 100.0 % (40-65) H 10/29/17 03:18 VBG Base Excess -6.0 mmol/L (0.0-2.0) L 10/29/17 03:18 VBG Potassium 6.3 mmol/L (3.6-5.2) H* 10/29/17 03:18 Sodium 136.0 mmol/L (132-148) 10/29/17 03:18 Chloride 106.0 mmol/L (98-107) 10/29/17 03:18 Glucose 103 mg/dl (65-105) 10/29/17 03:18 Lactate 0.8 mmol/L (0.7-2.1) 10/29/17 03:18 FiO2 21.0 % 10/29/17 03:18 Sodium 139 mmol/L (132-148) 11/01/17 06:45 Potassium 3.6 mmol/L (3.6-5.0) 11/01/17 06:45 Chloride 99 mmol/L (98-107) 11/01/17 06:45 Carbon Dioxide 26 mmol/L (21-33) 11/01/17 06:45 Anion Gap 17 (10-20) 11/01/17 06:45 BUN 18 mg/dL (7-21) 11/01/17 06:45 Creatinine 10.2 mg/dl (0.7-1.2) H* D 11/01/17 06:45 Est GFR ( Amer) 5 11/01/17 06:45 Est GFR (Non-Af Amer) 4 11/01/17 06:45 Random Glucose 125 mg/dL (70-110) H 11/01/17 06:45 Calcium 6.7 mg/dL (8.4-10.5) L* 11/01/17 06:45 Phosphorus 6.0 mg/dL (2.5-4.5) H 10/31/17 06:15 Total Bilirubin 0.6 mg/dL (0.2-1.3) 11/01/17 06:45 AST 24 U/L (14-36) 11/01/17 06:45 ALT 19 U/L (7-56) 11/01/17 06:45 Alkaline Phosphatase 68 U/L (38-126) 11/01/17 06:45 Troponin I < 0.01 ng/mL D 10/29/17 03:18 Total Protein 5.6 g/dL (5.8-8.3) L 11/01/17 06:45 Albumin 2.8 g/dL (3.0-4.8) L 11/01/17 06:45 Globulin 2.7 gm/dL 11/01/17 06:45 Albumin/Globulin Ratio 1.0 (1.1-1.8) L 11/01/17 06:45 Lipase 240 U/L (23-300) 10/29/17 03:18 Beta HCG, Quant < 2.39 mIU/mL (0-6.15) 10/29/17 03:18 Venous Blood Potassium 6.3 mmol/L (3.6-5.2) H* 10/29/17 03:18 Absolute Lymphs (Flow) 1354 Cells/mcL (850-3900) 10/29/17 09:30 % CD4 Cells 32 Percent (30-61) 10/29/17 09:30 Absolute CD4 Count 432 Cells/mcL (490-1740) L 10/29/17 09:30 T-Help/Suppress Ratio 1.08 Ratio (0.86-5.00) 10/29/17 09:30 % CD8 Cells 30 Percent (12-42) 10/29/17 09:30 Absolute CD8 Count 400 Cells/mcL (180-1170) 10/29/17 09:30 HIV-1 RNA Qnt (RT-PCR) <1.30 detected (<1.30) H 10/29/17 10:38 Discharge Exam - Head Exam Head Exam: ATRAUMATIC, NORMAL INSPECTION, NORMOCEPHALIC Discharge Plan - Discharge Medications Prescriptions: amLODIPine [Norvasc] 10 mg PO DAILY #30 tab cloNIDine [Catapres] 0.2 mg PO TID #90 tab Lopinavir/Ritonavir [Kaletra 200-50 mg] 2 cap PO BID #60 tab Minoxidil 5 mg PO DAILY #30 tab Raltegravir Potassium [Isentress] 400 mg PO BID #60 tab Sevelamer [Renagel] 2,400 mg PO TID #90 tab Valsartan 320 mg PO DAILY #30 tablet Vitamin B Complex/Vit C/Folic [Nephro-Kristen] 1 tab PO 0800 #30 tab - Follow Up Plan Condition: STABLE Disposition: HOME/ ROUTINE Instructions: Chronic Pancreatitis, Hyperkalemia (DC), Hemodialysis (DC), Acute Abdomen (Belly Pain), Adult (DC) Additional Instructions: 1. Follow up with PMD in 1 week. 2. Do not take blood pressure medication before dialysis. 3. Follow up with Dr. Lu on blood pressure medication. 4. Take Antiviral medications as directed. 5. Continue hemodialysis as scheduled. Please do not miss any dialysis. 6. Please, go to hemodialysis treatment tomorrow. Referrals: Zuleyma Collier MD [Primary Care Provider] -
--- NOTE | 2017-11-02 00:45 | PN ---
DATE: 11/01/2017 SUBJECTIVE: Patient is in bed, in no acute distress, nontoxic. PHYSICAL EXAMINATION: VITAL SIGNS: Temperature is 98, blood pressure is 104/60, respiratory rate of 16. HEENT: Unremarkable. NECK: Supple. LUNGS: Have decreased breath sounds. HEART: Normal S1 and S2. ABDOMEN: Soft. LABORATORY EXAMINATION: Revealed a white count of 5.3, hemoglobin of 9.8, platelets of 85. Chemistries revealed a BUN of 18, creatinine of 10. ASSESSMENT AND PLAN: This is a 32-year-old female with positive human immunodeficiency virus and nephropathy, end-stage renal disease on hemodialysis, hepatitis C, history of pancreatitis, hypertension, abdominal pain, nausea, and vomiting. The patient for discharge today. Bhargav Thrasher MD
[2017-11-02] MEDS ORDERED: Darbepoetin Alfa 40 mcg/ml Inj IVP ONE (11:13)
== END 2017-11-01 16:25 | disposition home or self-care (01) | DRG 977 ==
LOC: ED 02:48 → ERH 07:16 → 3RSO 16:09 → 5RSO 10-31 10:00
PROVIDERS: ADMIT Internal Medicine; ATTEND Internal Medicine
PROC: 5A1D70Z Performance of Urinary Filtration, Intermittent, Less than 6 Hours Per Day (ICD-10-PCS; principal; 2017-10-29)
PROC: 5A1D70Z Performance of Urinary Filtration, Intermittent, Less than 6 Hours Per Day (ICD-10-PCS; 2017-10-31)
DX: A09 Infectious gastroenteritis and colitis, unspecified (principal); B20 Human immunodeficiency virus [HIV] disease; N18.6 End stage renal disease; I13.2 Hypertensive heart and chronic kidney disease with heart failure and with stage 5 chronic kidney disease, or end stage renal disease; D69.6 Thrombocytopenia, unspecified; E83.39 Other disorders of phosphorus metabolism; E87.5 Hyperkalemia; N25.81 Secondary hyperparathyroidism of renal origin; I16.0 Hypertensive urgency; I50.9 Heart failure, unspecified; B19.20 Unspecified viral hepatitis C without hepatic coma; N29 Other disorders of kidney and ureter in diseases classified elsewhere; F17.210 Nicotine dependence, cigarettes, uncomplicated; Z99.2 Dependence on renal dialysis; Z79.899 Other long term (current) drug therapy

== ENCOUNTER 2018-06-14 19:03 | Inpatient (IN) | payer MEDICARE, MEDICAID ==
[2018-06-14] MEDS ORDERED: Albuterol-Ipratrop 3 mg / 0.5 (3 ml) UD IH STA (20:02)
--- NOTE | 2018-06-14 20:22 | ED PDOC ---
Arrival/HPI - General Historian: Patient - History of Present Illness Narrative History of Present Illness (Text): 06/14/18 20:19 32 year old female, whose past medical history includes hypertension, hepatitis C, HIV, and dialysis, who presents to the ED complaining of cough, chest congestion, and fever x 4 days. Patient notes associated abdominal pain, nausea, vomiting, and diarrhea. Patient states she doesn't make urine. Patient denies any chills, chest pain, back pain, neck pain, SOB, or any other complaints. Nephro: Dr. Pelletier PMD : Dr. Farmer Time/Duration: < week (4 days) Symptom Onset: Gradual Symptom Course: Unchanged Activities at Onset: Light Context: Home <Maya Zaragoza PA-C - Last Filed: 06/15/18 02:06> <Beba Benitez - Last Filed: 06/16/18 13:42> - General Chief Complaint: Cough, Cold, Congestion Time Seen by Provider: 06/14/18 19:36 Past Medical History - Provider Review Nursing Documentation Reviewed: Yes - Infectious Disease Hx of Infectious Diseases: None - Tetanus Immunization Tetanus Immunization: Unknown - Cardiac Hx Cardiac Disorders: Yes Hx Congestive Heart Failure: Yes Hx Hypertension: Yes - Pulmonary Hx Respiratory Disorders: Yes (SMOKES P LASTS FOR 3 D) Hx Bronchitis: Yes Hx Pneumonia: Yes - Neurological Hx Neurological Disorder: Yes Hx Dizziness: Yes - HEENT Hx HEENT Disorder: No - Renal Hx Renal Disorder: Yes Hx Dialysis: Yes (m/w/f [facility] Date of Last Dialysis Treatment: 10/29/17 Hx Renal Failure: Yes - Endocrine/Metabolic Hx Endocrine Disorders: No - Hematological/Oncological Hx Blood Disorders: Yes Hx AIDS: Yes Hx Hepatitis C: Yes - Integumentary Hx Dermatological Disorder: No - Musculoskeletal/Rheumatological Hx Musculoskeletal Disorders: No Hx Falls: No - Gastrointestinal Hx Gastrointestinal Disorders: Yes (HEMORRHOIDS,GASTROENTERITIS) Hx Pancreatitis: Yes Other/Comment: pancreatitis - Genitourinary/Gynecological Hx Genitourinary Disorders: No (OLIGURIA) Other/Comment: R BREAST CYST - Psychiatric Hx Psychophysiologic Disorder: Yes Hx Anxiety: Yes Hx Depression: Yes Hx Substance Use: No - Surgical History Other/Comment: right arm AV fistula - Anesthesia Hx Anesthesia: Yes Hx Anesthesia Reactions: No Hx Malignant Hyperthermia: No - Suicidal Assessment Feels Threatened In Home Enviroment: No <Maya Zaragoza PA-C - Last Filed: 06/15/18 02:06> Family/Social History Family/Social History: Unknown Family HX Smoking Status: Current Some Days Smoker Hx Alcohol Use: No Hx Substance Use: No Hx Substance Use Treatment: No <Maya Zaragoza PA-C - Last Filed: 06/15/18 02:06> Allergies/Home Meds <Maya Zaragoza PA-C - Last Filed: 06/15/18 02:06> <Beba Benitez - Last Filed: 06/16/18 13:42> Allergies/Adverse Reactions: Allergies shellfish derived Allergy (Verified 10/29/17 18:25) ANAPHYLAXIS Home Medications: Home Meds Medication Instructions Recorded Confirmed RX: Cinacalcet [Sensipar] 60 mg PO DAILY 10/29/17 06/16/18 RX: hydrALAZINE [Apresoline] 50 mg PO TID 06/16/18 06/16/18 Review of Systems - Physician Review All systems were reviewed & negative as marked: Yes - Review of Systems Constitutional: Fevers Eyes: Normal ENT: Normal Respiratory: Cough. absent: SOB Cardiovascular: Normal. absent: Chest Pain Gastrointestinal: Abdominal Pain, Diarrhea, Nausea, Vomiting Genitourinary Female: Normal Musculoskeletal: Normal. absent: Back Pain, Neck Pain Skin: Normal. absent: Rash Neurological: Normal. absent: Headache, Dizziness Endocrine: Normal Hemo/Lymphatic: Normal Psychiatric: Normal <Maya Zaragoza PA-C - Last Filed: 06/15/18 02:06> Physical Exam Vital Signs Reviewed: Yes Vital Signs Temp Pulse Resp BP Pulse Ox 06/14/18 19:11 98.3 F 96 H 19 134/84 99 Temperature: Afebrile Blood Pressure: Normal Pulse: Regular Respiratory Rate: Normal Appearance: Positive for: Well-Appearing, Non-Toxic, Comfortable Pain Distress: None Mental Status: Positive for: Alert and Oriented X 3 - Systems Exam Head: Present: Atraumatic, Normocephalic Pupils: Present: PERRL Extroacular Muscles: Present: EOMI Conjunctiva: Present: Normal Mouth: Present: Moist Mucous Membranes Neck: Present: Normal Range of Motion Respiratory/Chest: Present: Good Air Exchange, Wheezes (bilateral expiratory w heezing), Rhonchi. No: Respiratory Distress, Accessory Muscle Use Cardiovascular: Present: Regular Rate and Rhythm, Normal S1, S2. No: Murmurs Abdomen: Present: Tenderness (upper abdominal tenderness). No: Distention, Peritoneal Signs Back: Present: Normal Inspection Upper Extremity: Present: Normal Inspection. No: Cyanosis, Edema Lower Extremity: Present: Normal Inspection. No: Edema Neurological: Present: GCS=15, CN II-XII Intact, Speech Normal Skin: Present: Warm, Dry, Normal Color. No: Rashes Psychiatric: Present: Alert, Oriented x 3, Normal Insight, Normal Concentration <Maya Zaragoza PA-C - Last Filed: 06/15/18 02:06> Vital Signs Temp Pulse Resp BP Pulse Ox 06/15/18 04:00 98.8 F 93 H 17 176/92 H 100 06/15/18 03:58 20 06/15/18 02:35 93 H 17 166/88 H 99 06/15/18 01:12 93 H 18 176/100 H 100 06/14/18 22:38 98 H 18 181/99 H 100 06/14/18 19:11 98.3 F 96 H 19 134/84 99 <Beba Benitez - Last Filed: 06/16/18 13:42> Medical Decision Making ED Course and Treatment: 06/14/18 20:24 Impression: 32 year old female presents to the ED complaining of fever, cough, and chest congestion x 4 days, with 1 day of abdominal pain, N/V/D. Plan: -- Labs -- CT Abd/Pelvis -- CXR -- Duoneb -- Pepcid -- Zofran -- Influenza A B Stat Progress Notes: CXR : +CM, otherwise NAD, compared to prior CXR on 08/23/2016 EKG : NSR at 98 bpm, prolonged QT. Labs reviewed : wbc 6.3, hcg 11.1, bun 26, creat 10.5 (stable compared to prior results), alk phos 183, lipase 346, however rest of LFTs and t bili wnl, beta quant <2, flu (-). On re-evaluation, patient continues to c/o abdominal pain, mostly to the lower abdomen. On exam, abdomen is soft with mild epigastric and lower abdominal tenderness without rebound or guarding. Considering lab results and exam. CT A/P ordered with PO contrast. Patient is c/o nausea and is having difficulty tolerating po contrast. Given zofran 4 mg IV. Patient is still c/o nausea, only tolerated 1/4 of the bottle of contrast, given reglan 10 mg IV, she continues to c/o lower abdominal pain. Patient sent to CT. 06/15/18 00:44 CT abdomen/pelvis reviewed, shows: Impression: 1. Moderate enteritis of the small bowel. No evidence of bowel obstruction. 2. Chronic atrophy of the kidneys bilaterally. 3. Moderate sized pericardial effusion. 4. 2 large cystic lesions in the posterior aspect of the lower pelvis, likely representing ovarian cysts. If there is further clinical concern, ultrasound of the pelvis could be performed. Previous medical records reviewed : on 10/30/17 patient had a normal abd US - GB was nl w/o stones, CBG 3.6 mm w/o stones or dilatation, she also had a CT A/P, which showed nonspecific enteritis, no mention of pericardial effusion. On re-evaluation, patient laying in bed comfortably, talking on her cell phone. Reports no SOB. Diagnostic results d/w the patient in great detail. Diagnosis of pericardial effusion, need for dialysis, enteritis d/w the patient. Based on history, exam and diagnostic results, plan will be for admission. Case d/w spanish medical interpreter and with Dr. Stinson, who agree with plan for admission under the hospitalist service and consult with Dr. Lu for dialysis tomorrow. Patient states she fully agrees with and understands further plan of care. I have given the patient opportunity to ask any additional questions. - RAD Interpretation Radiology Orders: 06/14/18 20:01 CHEST TWO VIEWS (PA/LAT) [RAD] Stat - Medication Orders Current Medication Orders: Discontinued Medications Albuterol/Ipratropium (Duoneb 3 Mg/0.5 Mg (3 Ml) Ud) 3 ml IH STAT STA Stop: 06/14/18 20:03 Famotidine (Pepcid) 20 mg IVP STAT STA Stop: 06/14/18 19:59 Ondansetron HCl (Zofran Inj) 4 mg IVP STAT STA Stop: 06/14/18 19:59 <Maya Zaragoza PA-C - Last Filed: 06/15/18 02:06> - Lab Interpretations Lab Results: 06/14/18 20:12 06/14/18 20:12 Lab Results 06/14/18 20:12: Beta HCG, Quant < 2.39 06/14/18 20:12: Influenza Typ A,B (EIA) Negative for flu a/b 06/14/18 20:12: Sodium 138, Potassium 4.0, Chloride 95 L, Carbon Dioxide 28, Anion Gap 19, BUN 26 H, Creatinine 10.5 H*, Est GFR ( Amer) 5, Est GFR (Non-Af Amer) 4, Random Glucose 85, Calcium 8.8, Total Bilirubin 1.1, AST 30, ALT 21, Alkaline Phosphatase 183 H D, Total Protein 9.2 H, Albumin 4.9 H, Globulin 4.4, Albumin/Globulin Ratio 1.1, Lipase 346 H 06/14/18 20:12: WBC 6.3, RBC 3.53, Hgb 11.1 L, Hct 34.8 L, MCV 98.6, MCH 31.4, MCHC 31.9, RDW 14.8 H, Plt Count 235, MPV 11.2 H, Gran % 58.2, Lymph % (Auto) 25.4, Wolfe % (Auto) 10.7 H, Eos % (Auto) 4.9, Baso % (Auto) 0.8, Gran # 3.68, Lymph # (Auto) 1.6, Wolfe # (Auto) 0.7 H, Eos # (Auto) 0.3, Baso # (Auto) 0.05 - RAD Interpretation Radiology Orders: 06/14/18 20:01 CHEST TWO VIEWS (PA/LAT) [RAD] Stat 06/14/18 21:23 ABD & PELVIS PO CONTRAST ONLY [CT] Stat - Medication Orders Current Medication Orders: Acetaminophen (Tylenol 325mg Tab) 650 mg PO Q6H PRN PRN Reason: Pain, moderate (4-7) Amlodipine Besylate (Norvasc) 10 mg PO DAILY [facility] Last Admin: 06/16/18 09:04 Dose: 10 mg MAR Blood Pressure Document 06/16/18 09:04 RT (Rec: 06/16/18 09:04 RT [id number]) Blood Pressure Blood Pressure (100/60-150/90) 177/95 Benzonatate (Tessalon Perles) 100 mg PO TID [facility] Last Admin: 06/16/18 09:05 Dose: 100 mg Cinacalcet (Sensipar) 60 mg PO DAILY [facility] Last Admin: 06/16/18 09:06 Dose: 60 mg Clonidine HCl (Catapres) 0.2 mg PO TID [facility] Last Admin: 06/16/18 09:04 Dose: 0.2 mg MAR Pulse and Blood Pressure Document 06/16/18 09:04 RT (Rec: 06/16/18 09:04 RT [id number]) Pulse Pulse Rate (60-90) 80 Blood Pressure Blood Pressure (100/60-150/90) 177/95 Heparin Sodium (Porcine) (Heparin) 5,000 units SC Q12 [facility]; Protocol Last Admin: 06/16/18 09:09 Dose: Not Given Non-Admin Reason: Patient Refused Hydralazine HCl (Apresoline) 10 mg IVP Q6 PRN PRN Reason: Systolic Blood Pressure Hydralazine HCl (Apresoline) 50 mg PO Q8 [facility] Last Admin: 06/16/18 09:05 Dose: 50 mg MAR Pulse and Blood Pressure Document 06/16/18 09:05 RT (Rec: 06/16/18 09:05 RT [id number]) Pulse Pulse Rate (60-90) 80 Blood Pressure Blood Pressure (100/60-150/90) 177/95 Meropenem 250 mg/ Sodium (Chloride) 100 mls @ 100 mls/hr IVPB Q12H [facility]; Protocol Stop: 06/24/18 11:31 Last Admin: 06/15/18 23:30 Dose: Not Given Non-Admin Reason: Dose given at 1740 Lopinavir/Ritonavir (Kaletra 200-50 Mg) 2 cap PO BID [facility]; Protocol Last Admin: 06/16/18 09:05 Dose: 2 cap Losartan Potassium (Cozaar) 100 mg PO DAILY [facility] Last Admin: 06/16/18 09:04 Dose: 100 mg Metoprolol Succinate (Toprol Xl) 100 mg PO BRK [facility] Last Admin: 06/16/18 09:04 Dose: 100 mg MAR Pulse and Blood Pressure Document 10/21/18 09:04 RT (Rec: 06/16/18 09:04 RT [id number]) Pulse Pulse Rate (60-90) 80 Blood Pressure Blood Pressure (100/60-150/90) 177/95 Pantoprazole Sodium (Protonix Ec Tab) 40 mg PO 0600 [facility] Last Admin: 06/16/18 06:42 Dose: 40 mg Promethazine HCl (Phenergan Syrup) 6.25 mg PO Q4H PRN PRN Reason: Cough Raltegravir (Isentress) 400 mg PO BID [facility]; Protocol Last Admin: 06/16/18 09:05 Dose: 400 mg Raltegravir (Isentress) 400 mg PO BID [facility]; Protocol Last Admin: 06/16/18 09:17 Dose: Not Given Non-Admin Reason: Patient Refused Sevelamer HCl (Renagel) 2,400 mg PO WM [facility] Last Admin: 06/16/18 09:06 Dose: 2,400 mg Vitamin B Complex/Vit C/Folic Acid (Nephro-Kristen) 1 tab PO 0800 [facility] Discontinued Medications Albuterol/Ipratropium (Duoneb 3 Mg/0.5 Mg (3 Ml) Ud) 3 ml IH STAT STA Stop: 06/14/18 20:03 Last Admin: 06/14/18 21:14 Dose: 3 ml Cyclobenzaprine HCl (Flexeril) 5 mg PO ONCE ONE Stop: 06/15/18 22:45 Last Admin: 06/15/18 23:09 Dose: 5 mg Dicyclomine HCl (Bentyl) 10 mg PO ONCE ONE Stop: 06/15/18 00:07 Last Admin: 06/15/18 00:21 Dose: Not Given Non-Admin Reason: Patient Refused Famotidine (Pepcid) 20 mg IVP STAT STA Stop: 06/14/18 19:59 Last Admin: 06/14/18 21:14 Dose: 20 mg IVP Administration Document 06/14/18 21:14 IT (Rec: 06/14/18 21:14 IT [id number]) Charges for Administration # of IVP Administrations 1 Vancomycin HCl (Vancomycin 1gm) 1 gm in 250 mls @ 167 mls/hr IVPB STAT STA; Protocol Stop: 06/15/18 12:46 Last Admin: 06/15/18 18:59 Dose: 167 mls/hr eMAR Start Stop Document 06/15/18 18:59 DEL (Rec: 06/15/18 18:59 DEL [id number]) Intravenous Solution Start Date 06/15/18 Start Time 18:59 End Date 06/15/18 End time 20:30 Total Infusion Time 91 Metoclopramide HCl (Reglan) 10 mg IVP STAT STA Stop: 06/15/18 00:38 Last Admin: 06/15/18 01:12 Dose: 10 mg IVP Administration Document 06/15/18 01:12 IT (Rec: 06/15/18 01:12 IT [id number]) Charges for Administration # of IVP Administrations 1 Morphine Sulfate (Morphine) 4 mg IVP STAT STA Stop: 06/14/18 21:58 Last Admin: 06/14/18 22:38 Dose: 4 mg MAR Pain Assessment Document 06/14/18 22:38 IT (Rec: 06/14/18 22:38 IT [id number]) Pain Reassessment Is this a pain reassessment? No Sleep Is patient sleeping during reassessment? No Presence of Pain Presence of Pain Yes Pain Scale Used Protocol: [facility] Pain Scale Used Numeric Location Left, Right or Bilateral Bilateral IVP Administration Document 06/14/18 22:38 IT (Rec: 06/14/18 22:38 IT [id number]) Charges for Administration # of IVP Administrations 1 Morphine Sulfate (Morphine) 4 mg IVP STAT STA Stop: 06/15/18 00:59 Last Admin: 06/15/18 01:12 Dose: 4 mg MAR Pain Assessment Document 06/15/18 01:12 IT (Rec: 06/15/18 01:12 IT [id number]) Pain Reassessment Is this a pain reassessment? No Sleep Is patient sleeping during reassessment? No Presence of Pain Presence of Pain Yes Pain Scale Used Protocol: [facility] Scale Used Numeric IVP Administration Document 06/15/18 01:12 IT (Rec: 06/15/18 01:12 IT [id number]) Charges for Administration # of IVP Administrations 1 Ondansetron HCl (Zofran Inj) 4 mg IVP STAT STA Stop: 06/14/18 19:59 Last Admin: 06/14/18 21:14 Dose: 4 mg IVP Administration Document 06/14/18 21:14 IT (Rec: 06/14/18 21:14 IT [id number]) Charges for Administration # of IVP Administrations 1 Ondansetron HCl (Zofran Inj) 4 mg IVP STAT STA Stop: 06/14/18 21:58 Last Admin: 06/14/18 22:38 Dose: 4 mg IVP Administration Document 06/14/18 22:38 IT (Rec: 06/14/18 22:38 IT [id number]) Charges for Administration # of IVP Administrations 1 Ondansetron HCl (Zofran Inj) 4 mg IVP STAT STA Stop: 06/15/18 00:03 Last Admin: 06/15/18 00:21 Dose: 4 mg IVP Administration Document 06/15/18 00:21 IT (Rec: 06/15/18 00:21 IT [id number]) Charges for Administration # of IVP Administrations 1 <Beba Benitez - Last Filed: 06/16/18 13:42> - PA / UTILITY INSPECTOR / Resident Statement MD/DO has reviewed & agrees with the documentation as recorded. - Scribe Statement The provider has reviewed the documentation as recorded by the Scribe Renuka Nixon All medical record entries made by the Scribe were at my direction and personally dictated by me. I have reviewed the chart and agree that the record accurately reflects my personal performance of the history, physical exam, medical decision making, and the department course for this patient. I have also personally directed, reviewed, and agree with the discharge instructions and disposition. <Maya Zaragoza PA-C - Last Filed: 06/15/18 02:06> Disposition/Present on Arrival - Present on Arrival Any Indicators Present on Arrival: No History of DVT/PE: No History of Uncontrolled Diabetes: No Urinary Catheter: No History of Decub. Ulcer: No History Surgical Site Infection Following: None - Disposition Have Diagnosis and Disposition been Completed?: Yes Disposition Time: 01:30 Patient Plan: Admission (to [facility], as per Dr. Stinson) <Maya Zaragoza PA-C - Last Filed: 06/15/18 02:06> <Beba Benitez - Last Filed: 06/16/18 13:42> - Disposition Diagnosis: Missed dialysis, Enteritis, Pericardial effusion Disposition: HOSPITALIZED Condition: [facility]
[2018-06-14 20:34] LABS: BASO # 0.05 K/mm3 (0.0-2.0); BASO % 0.8 % (0.0-3.0); EOS # 0.3 (0.0-0.7); EOS % 4.9 % (1.5-5.0); GRAN # 3.68 (1.4-6.5); GRAN % 58.2 % (50.0-68.0); HEMOGLOBIN 11.1 g/dL (12.0-16.0); LYMPH # 1.6 (1.2-3.4); LYMPH % 25.4 % (22.0-35.0); MEAN CELL VOLUME 98.6 fl (80.0-105.0); MEAN CORPUSCULAR HEMOGLOBIN 31.4 pg (25.0-35.0); MEAN CORPUSCULAR HGB CONC 31.9 g/dl (31.0-37.0); MEAN PLATELET VOLUME 11.2 fl (7.0-11.0); MONO # 0.7 (0.1-0.6); MONO % 10.7 % (1.0-6.0); RBC 3.53 10^6/uL (3.5-6.1); RED CELL DISTRIBUTION WIDTH 14.8 % (11.5-14.5); WHITE BLOOD COUNT 6.3 10^3/ul (4.5-11.0)
[2018-06-14 20:45] LABS: ALB/GLOB RATIO 1.1 (1.1-1.8); ALBUMIN 4.9 g/dL (3.0-4.8); CALCIUM 8.8 mg/dL (8.4-10.5)
[2018-06-14] MEDS ORDERED: Iohexol 240 (50 ml) ONE ×2 (21:30)
[2018-06-14] MEDS ORDERED: Morphine 4 mg/ml ISec IVP STA (21:57)
[2018-06-15] MEDS ORDERED: Morphine 4 mg/ml ISec IVP STA (00:58)
--- NOTE | 2018-06-15 01:56 | CP.PCM.HP ---
<Darrian Gao - Last Filed: 06/15/18 02:43> History of Present Illness - History of Present Illness History of Present Illness: Darrian Gao, PGy-1 History and Physical for Hospitalist Service CC: Abdominal Pain HPI: Ms. Wade is a 32 year old female with past medical history of Hep C, HIV , HTN, ESRD and MWF at [facility] in who presents with cough and abdominal pain which began 2 days ago. Patients states she has missed her dialysis session yesterday due to the pain and vomiting. Last session was on Tuesday 06/12. She states the abdominal pain is located in her lower abdomen. She describes it as a 8/10 and states it is sharp in quality without radiation. She also says it is w orse when she eats, and thus has not eaten for more than 12 hours. In addition patient states she has had three episodes of watery non bloody diarrhea and nonbilious vomiting of food and mucous. She also states she does not currently take any medications for the Hep C and has not taken her antiviral medications for multiple weeks. She endorses chills but denies any fever, sore throat, chest pain, shortness of breath or any other complaints at this time. PCP: Dr. Collier Nephro: Dr. Lu PMHX: Hep C, HIV, HTN, ESRD and MWF PSHX: right arm dialysis fistula Allergies: Shellfish Social: 1 /3 days, denies alcohol or illicit drug use Meds: See MAR Fam Hx: denies Present on Admission - Present on Admission Any Indicators Present on Admission: No Review of Systems - Review of Systems Review of Systems: 12 pooint ROS completed and negative except as described in HPI. Past Patient History - Infectious Disease Hx of Infectious Diseases: None - Tetanus Immunizations Tetanus Immunization: Unknown - Past Social History Smoking Status: Current Some Days Smoker - CARDIAC Hx Cardiac Disorders: Yes Hx Congestive Heart Failure: Yes Hx Hypertension: Yes - PULMONARY Hx Respiratory Disorders: Yes (SMOKES P LASTS FOR 3 D) Hx Bronchitis: Yes Hx Pneumonia: Yes - NEUROLOGICAL Hx Neurological Disorder: Yes Hx Dizziness: Yes - HEENT Hx HEENT Problems: No - RENAL Hx Chronic Kidney Disease: Yes Hx Dialysis: Yes (m/w/f [facility]) Date of Last Dialysis Treatment: 10/29/17 Hx Renal Failure: Yes - ENDOCRINE/METABOLIC Hx Endocrine Disorders: No - HEMATOLOGICAL/ONCOLOGICAL Hx Blood Disorders: Yes Hx AIDS: Yes Hx Hepatitis C: Yes - INTEGUMENTARY Hx Dermatological Problems: No - MUSCULOSKELETAL/RHEUMATOLOGICAL Hx Musculoskeletal Disorders: No Hx Falls: No - GASTROINTESTINAL Hx Gastrointestinal Disorders: Yes (HEMORRHOIDS,GASTROENTERITIS) Hx Pancreatitis: Yes Other/Comment: pancreatitis - GENITOURINARY/GYNECOLOGICAL Hx Genitourinary Disorders: No (OLIGURIA) Other/Comment: R BREAST CYST - PSYCHIATRIC Hx Psychophysiologic Disorder: Yes Hx Anxiety: Yes Hx Depression: Yes Hx Substance Use: No - SURGICAL HISTORY Other/Comment: right arm AV fistula - ANESTHESIA Hx Anesthesia: Yes Hx Anesthesia Reactions: No Hx Malignant Hyperthermia: No Meds Allergies/Adverse Reactions: Allergies Allergy/AdvReac Type Severity Reaction Status Date / Time shellfish derived Allergy ANAPHYLAXIS Verified 10/29/17 18:25 Physical Exam - Constitutional Appears: Well, Non-toxic, No Acute Distress - Head Exam Head Exam: ATRAUMATIC, NORMOCEPHALIC - Eye Exam Eye Exam: EOMI, Normal appearance Pupil Exam: PERRL - ENT Exam ENT Exam: Mucous Membranes Moist - Neck Exam Neck exam: Positive for: Normal Inspection - Respiratory Exam Respiratory Exam: Decreased Breath Sounds, Wheezes. absent: Accessory Muscle Use, Chest Wall Tenderness, Prolonged Expiratory Phase, Respiratory Distress - Cardiovascular Exam Cardiovascular Exam: RRR, +S1, +S2 - GI/Abdominal Exam GI & Abdominal Exam: Guarding (lower quadrants), Hyperactive Bowel Sounds, Soft, Tenderness (RLQ and LLQ, no radiation, negative White's). absent: Distended, Organomegaly, Rigid - Extremities Exam Extremities exam: Positive for: pedal edema, pedal pulses present. Negative for: tenderness Additional comments: R arm AV fistula in place. No thrills and good flow auscultated. - Back Exam Back exam: absent: CVA tenderness (L), CVA tenderness (R), rash noted - Neurological Exam Neurological exam: Alert, Oriented x3 - Skin Skin Exam: Dry, Intact Results - Vital Signs Recent Vital Signs: Last Vital Signs Temp 98.3 F 06/14/18 19:11 Pulse 93 H 06/15/18 01:12 Resp 18 06/15/18 01:12 BP 176/100 H 06/15/18 01:12 Pulse Ox 100 10/20/18 01:12 - Labs Result Diagrams: 06/14/18 20:12 06/14/18 20:12 Labs: Laboratory Results - last 24 hr 06/14/18 06/14/18 06/14/18 20:12 20:12 20:12 WBC 6.3 RBC 3.53 Hgb 11.1 L Hct 34.8 L MCV 98.6 MCH 31.4 MCHC 31.9 RDW 14.8 H Plt Count 235 MPV 11.2 H Gran % 58.2 Lymph % (Auto) 25.4 [place] % (Auto) 10.7 H Eos % (Auto) 4.9 Baso % (Auto) 0.8 Gran # 3.68 Lymph # (Auto) 1.6 [place] # (Auto) 0.7 H Eos # (Auto) 0.3 Baso # (Auto) 0.05 Sodium 138 Potassium 4.0 Chloride 95 L Carbon Dioxide 28 Anion Gap 19 BUN 26 H Creatinine 10.5 H* Est GFR ( Amer) 5 Est GFR (Non-Af Amer) 4 Random Glucose 85 Calcium 8.8 Total Bilirubin 1.1 AST 30 ALT 21 Alkaline Phosphatase 183 H D Total Protein 9.2 H Albumin 4.9 H Globulin 4.4 Albumin/Globulin Ratio 1.1 Lipase 346 H Beta HCG, Quant Influenza Typ A,B (EIA) Negative for flu a/b 06/14/18 20:12 WBC RBC Hgb Hct MCV MCH MCHC RDW Plt Count MPV Gran % Lymph % (Auto) [place] % (Auto) Eos % (Auto) Baso % (Auto) Gran # Lymph # (Auto) [place] # (Auto) Eos # (Auto) Baso # (Auto) Sodium Potassium Chloride Carbon Dioxide Anion Gap BUN Creatinine Est GFR ( Amer) Est GFR (Non-Af Amer) Random Glucose Calcium Total Bilirubin AST ALT Alkaline Phosphatase Total Protein Albumin Globulin Albumin/Globulin Ratio Lipase Beta HCG, Quant < 2.39 Influenza Typ A,B (EIA) Assessment & Plan - Assessment and Plan (Free Text) Assessment: Assessment: 32 year old female with past medical history of Hep C, HIV, HTN, ESRD on MWF presents with abdominal pain. Patients states she missed her dialysis session yesterday. Patient admitted for pericardial effusion and enteritis. Plan: Pericardial effusion - Dyspnea on exertion and orthopnea reported for a few weeks - CXR shows worsened infiltrates as compared to previous admission - Cardio consulted - Dr. Sampson - recs appreciated - F/u Echo in AM Hypertensive Urgency likely secondary to acute fluid overloaded state missed dialysis -BP: 176/100 sustained for a few readings over 3 hours -patient reports taking all BP meds yesterday -Nephro consulted, Dr. Lu recommendations appreciated -continue home medications for HTN. Hydralazine added q6h PRN -continue to monitor Abdominal Pain with Nausea and Vomiting and Diarrhea -No zofran or reglan as QT prolonged 486 -NPO, consider advancing in AM - No ABX coverage necessary at this time -CT abdomen: enteritis, right ovarian cysts -ID consulted, Dr. Thrasher, follow recs -pain control with Tylenol PRN ESRD - dialysis MWF, dialysis missed yesterday - CT abd/pel shows kidney atrophy - BUN: 26 Cr: 10.5, K: 4.0 - Nephro consult- Dr. Lu- recommendations appreciated for HD - continue home meds - will monitor renal function Cough - likely 2/2 URI, congestion on CXR - monitor off ABx for now, will reassess in AM - Agneselivonne monterrosols Ovarian Cysts - mentioned on CT abd/pel - f/u outpatient with PCP or OBGYN for possible pelvic U/S GI/DVT PPx-protonix 40 mg PO, heparin SC BID Patient seen, case reviewed, and plan approved by Dr. Stinson. Darrian Gao PGY-1 <Pantera Stinson - Last Filed: 06/15/18 06:39> Results - Vital Signs Recent Vital Signs: Last Vital Signs Temp 98.8 F 06/15/18 04:00 Pulse 93 H 06/15/18 04:00 Resp 17 06/15/18 04:00 BP 176/92 H 06/15/18 04:00 Pulse Ox 100 06/15/18 04:00 - Labs Result Diagrams: 06/14/18 20:12 06/14/18 20:12 Labs: Laboratory Results - last 24 hr 06/14/18 06/14/18 06/14/18 20:12 20:12 20:12 WBC 6.3 RBC 3.53 Hgb 11.1 L Hct 34.8 L MCV 98.6 MCH 31.4 MCHC 31.9 RDW 14.8 H Plt Count 235 MPV 11.2 H Gran % 58.2 Lymph % (Auto) 25.4 [place] % (Auto) 10.7 H Eos % (Auto) 4.9 Baso % (Auto) 0.8 Gran # 3.68 Lymph # (Auto) 1.6 [place] # (Auto) 0.7 H Eos # (Auto) 0.3 Baso # (Auto) 0.05 Sodium 138 Potassium 4.0 Chloride 95 L Carbon Dioxide 28 Anion Gap 19 BUN 26 H Creatinine 10.5 H* Est GFR ( Amer) 5 Est GFR (Non-Af Amer) 4 Random Glucose 85 Calcium 8.8 Total Bilirubin 1.1 AST 30 ALT 21 Alkaline Phosphatase 183 H D Total Protein 9.2 H Albumin 4.9 H Globulin 4.4 Albumin/Globulin Ratio 1.1 Lipase 346 H Beta HCG, Quant Influenza Typ A,B (EIA) Negative for flu a/b 06/14/18 20:12 WBC RBC Hgb Hct MCV MCH MCHC RDW Plt Count MPV Gran % Lymph % (Auto) [place] % (Auto) Eos % (Auto) Baso % (Auto) Gran # Lymph # (Auto) [place] # (Auto) Eos # (Auto) Baso # (Auto) Sodium Potassium Chloride Carbon Dioxide Anion Gap BUN Creatinine Est GFR ( Amer) Est GFR (Non-Af Amer) Random Glucose Calcium Total Bilirubin AST ALT Alkaline Phosphatase Total Protein Albumin Globulin Albumin/Globulin Ratio Lipase Beta HCG, Quant < 2.39 Influenza Typ A,B (EIA) Attending/Attestation - Attestation I have personally seen and examined this patient.: Yes I have fully participated in the care of the patient.: Yes I have reviewed all pertinent clinical information: Yes
[2018-06-15] MEDS ORDERED: Promethazine 6.25 MG/5 ML CUP PO PRN (02:45)
[2018-06-15 05:40] VITALS: BMI 23.3
[2018-06-15] MEDS: Pantoprazole 40 mg EC Tab PO SCH (08:54)
--- NOTE | 2018-06-15 09:38 | CT ---
Date of service: 06/14/2018 PROCEDURE: CT Abdomen and Pelvis with contrast HISTORY: Abdominal pain. Negative test (concurrent with this examination). COMPARISON: 10/29/2017 CT abdomen pelvis. 10/30/2017 abdominal ultrasound. TECHNIQUE: Oral contrast only. Radiation dose: Total exam DLP = 449.90 mGy-cm. This CT exam was performed using one or more of the following dose reduction techniques: Automated exposure control, adjustment of the mA and/or kV according to patient size, and/or use of iterative reconstruction technique. FINDINGS: LOWER THORAX: New pericardial effusion compared to the prior study. Maximum thickness of the pericardium at the level of the left ventricle 2.1 cm. LIVER: Hepatomegaly without focal hepatic abnormality. GALLBLADDER AND BILE DUCTS: Unremarkable. PANCREAS: Unremarkable. No gross lesion or ductal dilatation. SPLEEN: Unremarkable. ADRENALS: Unremarkable. No mass. KIDNEYS AND URETERS: Atrophic kidneys bilaterally similar findings identified on prior studies. VASCULATURE: Unremarkable. No aortic aneurysm. No atherosclerotic calcification or mural plaque present. BOWEL: Constipation without fecal impaction or obstruction. Evidence of mild enteritis. APPENDIX: No abnormalities to suggest acute appendicitis. No right lower quadrant inflammatory processes identified. PERITONEUM: Unremarkable. No free fluid. No free air. LYMPH NODES: Unremarkable. No enlarged lymph nodes. BLADDER: Unremarkable. REPRODUCTIVE: Unremarkable. Pelvic cysts (2) likely adnexal in origin the largest measuring 3 x 4.9 cm. Smaller cyst measures 1.8 x 3.5 cm. BONES: No acute fracture. OTHER FINDINGS: None. IMPRESSION: Pelvic cystic masses likely adnexal in origin. Findings consistent with enteritis without obstruction. Concordant results (preliminary interpretation) provided by [employer]. Procedure Completed: 23:03 Preliminary Report: Dictated and Authenticated: 00:38. Final Interpretation: 09:34. June 15, 2018
--- NOTE | 2018-06-15 09:51 | RAD ---
Date of service: 06/14/2018 HISTORY: Cough COMPARISON: 08/23/2016 TECHNIQUE: Chest PA and lateral FINDINGS: LUNGS: Pulmonary vascular congestion. This represents a new finding compared to the prior study. PLEURA: No significant pleural effusion identified. No pneumothorax apparent. CARDIOVASCULAR: No atherosclerotic calcification present Cardiomegaly. Known pericardial effusion documented on recent CT scan. OSSEOUS STRUCTURES: No significant abnormalities. VISUALIZED UPPER ABDOMEN: Normal. OTHER FINDINGS: None. IMPRESSION: Cardiomegaly/pulmonary vascular congestion.
[2018-06-15 09:57] LABS: BASO # 0.03 K/mm3 (0.0-2.0); BASO % 0.4 % (0.0-3.0); EOS # 0.4 (0.0-0.7); EOS % 4.5 % (1.5-5.0); GRAN # 4.93 (1.4-6.5); GRAN % 63.3 % (50.0-68.0); HEMOGLOBIN 10.9 g/dL (12.0-16.0); LYMPH # 1.8 (1.2-3.4); LYMPH % 22.5 % (22.0-35.0); MEAN CELL VOLUME 99.1 fl (80.0-105.0); MEAN CORPUSCULAR HEMOGLOBIN 31.1 pg (25.0-35.0); MEAN CORPUSCULAR HGB CONC 31.4 g/dl (31.0-37.0); MEAN PLATELET VOLUME 11.2 fl (7.0-11.0); MONO # 0.7 (0.1-0.6); MONO % 9.3 % (1.0-6.0); RBC 3.5 10^6/uL (3.5-6.1); RED CELL DISTRIBUTION WIDTH 14.8 % (11.5-14.5); WHITE BLOOD COUNT 7.8 10^3/ul (4.5-11.0)
[2018-06-15 10:09] LABS: ALB/GLOB RATIO 1.1 (1.1-1.8); ALBUMIN 4.8 g/dL (3.0-4.8)
--- NOTE | 2018-06-15 10:58 | CP.PCM.CON ---
History of Present Illness - History of Present Illness History of Present Illness: Awake, alert, denies shortness of breath Reason for consultation: Cardiac evaluation of moderate pericardial effusion from CT of chest Brief history of present illness: A 32 year old female who came in to the ER due to abdominal pain and not feeling well. She missed her hemodialysis yesterday due to not feeling well. She complains of mild shortness of breath and this happens when she misses her hemodialysis. History of Hep C, HIV, hypertension, ESRD on hemodialysis 3x a week (MWF) at [facility] in [place]. Right arm fistula. Seen and examined by me and Dr. Sampson Past Patient History - Infectious Disease Hx of Infectious Diseases: None - Tetanus Immunizations Tetanus Immunization: Unknown - Past Social History Smoking Status: Current Some Days Smoker - CARDIAC Hx Cardiac Disorders: Yes Hx Congestive Heart Failure: Yes Hx Hypertension: Yes - PULMONARY Hx Respiratory Disorders: Yes (SMOKES P LASTS FOR 3 D) Hx Bronchitis: Yes Hx Pneumonia: Yes - NEUROLOGICAL Hx Neurological Disorder: Yes Hx Dizziness: Yes - HEENT Hx HEENT Problems: No - RENAL Hx Chronic Kidney Disease: Yes Hx Dialysis: Yes (m/w/f [place]) Hx Renal Failure: Yes - ENDOCRINE/METABOLIC Hx Endocrine Disorders: No - HEMATOLOGICAL/ONCOLOGICAL Hx Blood Disorders: Yes Hx AIDS: Yes Hx Hepatitis C: Yes - INTEGUMENTARY Hx Dermatological Problems: No - MUSCULOSKELETAL/RHEUMATOLOGICAL Hx Falls: No - GASTROINTESTINAL Hx Gastrointestinal Disorders: Yes (HEMORRHOIDS,GASTROENTERITIS) Hx Pancreatitis: Yes Other/Comment: pancreatitis - GENITOURINARY/GYNECOLOGICAL Hx Genitourinary Disorders: No (OLIGURIA) Other/Comment: R BREAST CYST - PSYCHIATRIC Hx Psychophysiologic Disorder: Yes Hx Anxiety: Yes Hx Depression: Yes Hx Substance Use: No - SURGICAL HISTORY Other/Comment: right arm AV fistula - ANESTHESIA Hx Anesthesia: Yes Hx Anesthesia Reactions: No Hx Malignant Hyperthermia: No Meds Allergies/Adverse Reactions: Allergies Allergy/AdvReac Type Severity Reaction Status Date / Time shellfish derived Allergy ANAPHYLAXIS Verified 10/29/17 18:25 - Medications Medications: Current Medications Acetaminophen (Tylenol 325mg Tab) 650 mg PO Q6H PRN PRN Reason: Pain, moderate (4-7) Amlodipine Besylate (Norvasc) 10 mg PO DAILY [facility] Benzonatate (Tessalon Perles) 100 mg PO TID [facility] Cinacalcet (Sensipar) 60 mg PO DAILY [facility] Clonidine HCl (Catapres) 0.2 mg PO TID [facility] Last Admin: 06/15/18 08:54 Dose: 0.2 mg Heparin Sodium (Porcine) (Heparin) 5,000 units SC Q12 [facility]; Protocol Hydralazine HCl (Apresoline) 10 mg IVP Q6 PRN PRN Reason: Systolic Blood Pressure Lopinavir/Ritonavir (Kaletra 200-50 Mg) 2 cap PO BID [facility]; Protocol Losartan Potassium (Cozaar) 100 mg PO DAILY [facility] Metoprolol Succinate (Toprol Xl) 100 mg PO BRK [facility] Pantoprazole Sodium (Protonix Ec Tab) 40 mg PO 0600 [facility] Last Admin: 06/15/18 08:54 Dose: 40 mg Promethazine HCl (Phenergan Syrup) 6.25 mg PO Q4H PRN PRN Reason: Cough Raltegravir (Isentress) 400 mg PO BID [facility]; Protocol Raltegravir (Isentress) 400 mg PO BID [facility]; Protocol Sevelamer HCl (Renagel) 2,400 mg PO WM [facility] Last Admin: 06/15/18 08:54 Dose: 2,400 mg Physical Exam - Constitutional Appears: Non-toxic, No Acute Distress - Head Exam Head Exam: NORMAL INSPECTION, NORMOCEPHALIC - Eye Exam Eye Exam: Normal appearance Pupil Exam: NORMAL ACCOMODATION - ENT Exam ENT Exam: Mucous Membranes Dry - Respiratory Exam Respiratory Exam: Decreased Breath Sounds, NORMAL BREATHING PATTERN - Cardiovascular Exam Cardiovascular Exam: REGULAR RHYTHM, +S1, +S2 - GI/Abdominal Exam GI & Abdominal Exam: Hyperactive Bowel Sounds, Soft - Extremities Exam Additional comments: right AV shunt positive bruit/thrill - Neurological Exam Neurological exam: Alert, Oriented x3 - Psychiatric Exam Psychiatric exam: Normal Affect, Normal Mood - Skin Skin Exam: Dry, Normal Color, Warm Results - Vital Signs Recent Vital Signs: Last Vital Signs Temp 98.2 F 06/15/18 06:00 Pulse 109 H 06/15/18 08:54 Resp 20 06/15/18 06:00 BP 183/119 H 06/15/18 08:54 Pulse Ox 100 06/15/18 04:00 - Labs Result Diagrams: 06/15/18 09:30 06/15/18 09:30 Labs: Laboratory Results - last 24 hr 06/14/18 06/14/18 06/14/18 20:12 20:12 20:12 WBC 6.3 RBC 3.53 Hgb 11.1 L Hct 34.8 L MCV 98.6 MCH 31.4 MCHC 31.9 RDW 14.8 H Plt Count 235 MPV 11.2 H Gran % 58.2 Lymph % (Auto) 25.4 [place] % (Auto) 10.7 H Eos % (Auto) 4.9 Baso % (Auto) 0.8 Gran # 3.68 Lymph # (Auto) 1.6 [place] # (Auto) 0.7 H Eos # (Auto) 0.3 Baso # (Auto) 0.05 Sodium 138 Potassium 4.0 Chloride 95 L Carbon Dioxide 28 Anion Gap 19 BUN 26 H Creatinine 10.5 H* Est GFR ( Amer) 5 Est GFR (Non-Af Amer) 4 Random Glucose 85 Calcium 8.8 Phosphorus Magnesium Total Bilirubin 1.1 AST 30 ALT 21 Alkaline Phosphatase 183 H D Total Protein 9.2 H Albumin 4.9 H Globulin 4.4 Albumin/Globulin Ratio 1.1 Lipase 346 H Beta HCG, Quant Influenza Typ A,B (EIA) Negative for flu a/b 06/14/18 06/15/18 06/15/18 20:12 09:30 09:30 WBC 7.8 D RBC 3.50 Hgb 10.9 L Hct 34.7 L MCV 99.1 MCH 31.1 MCHC 31.4 RDW 14.8 H Plt Count 262 MPV 11.2 H Gran % 63.3 Lymph % (Auto) 22.5 [place] % (Auto) 9.3 H Eos % (Auto) 4.5 Baso % (Auto) 0.4 Gran # 4.93 Lymph # (Auto) 1.8 [place] # (Auto) 0.7 H Eos # (Auto) 0.4 Baso # (Auto) 0.03 Sodium 139 Potassium 4.3 Chloride 94 L Carbon Dioxide 30 Anion Gap 20 BUN 27 H Creatinine 12.1 H* Est GFR ( Amer) 4 Est GFR (Non-Af Amer) 4 Random Glucose 92 Calcium 9.0 Phosphorus 5.8 H Magnesium 2.2 Total Bilirubin 1.1 AST 30 ALT 13 Alkaline Phosphatase 190 H Total Protein 9.2 H Albumin 4.8 Globulin 4.4 Albumin/Globulin Ratio 1.1 Lipase Beta HCG, Quant < 2.39 Influenza Typ A,B (EIA) Assessment & Plan - Assessment and Plan (Free Text) Assessment: A 32 year old female who came in to the ER due to abdominal pain and not feeling well. She also complains of nausea and vomiting and not able to eat. She missed her hemodialysis yesterday due to not feeling well. She complains of mild shortness of breath and this happens when she misses her hemodialysis.History of Hep C, HIV, hypertension,CHF, bronchitis,pneumonia, pancreatitis,anxiety, depression, ESRD on hemodialysis 3x a week (MWF) at [facility]. Right arm fistula. CT of abdomen and pelvis showed pelvic cystic masses likely adnexal, pericardial effusion, Chest X ray-cardiomegaly, pulmonary vascular congestion. Shortness of breath due to pulmonary congestion missing her hemodialysis yesterday. She will go for hemodialysis today. Pericardial effusion, will order echocardiogram. Plan: For Echo to evaluate pericardial effusion For hemodialysis today Feels better but still with abdominal pain GI work up in progress On Norvasc 10 mg daily, Catapres 0.2 mg TID, Cozaar 100 mg daily,Toprol 100 mg daily Controlled heart rate Uncontrolled diastoloc blood pressure PRN Hydralazine Continue current treatment Continue current medications Will follow up Further recommendations during hospital course Plan and treatment discussed with Dr. Sampson Thank you for the opportunity of taking care of Ms. Kathrine Wade - Date & Time Date: 06/15/18 Time: 06:40
--- NOTE | 2018-06-15 11:16 | CP.PCM.CON ---
History of Present Illness - History of Present Illness History of Present Illness: Nephrology Consultation Note: Assessment: Stable pericardial effusion, fluid overload HTN urgency and missed HD Enteritis Hypertensive Chronic Kidney Disease (I12.0) End stage renal disease (N18.6) dependence on hemodialysis (Z99.2) (MWF) via AVF Anemia Hyperphosphatemia (E83.39), Secondary Hyperparathyroidism (E21.1), HTN (I12.0) HIV on HAART, chronic Hep C Plan: Will plan for HD today as ordered. Continue with Nephrovite 1 tab/day. PRBC as needed for anemia.no epogen with HD as last Hb 10.8 continue with phos binders. last level 5.8 HTN control with meds as ordered. d/c minoxidil due to pericardial effusion. switched diovan to losartan due to FDA warning. added Toprol Xl 100. Glycemic control, Dialysis consistent diet Further work up/management as per primary team Dose meds/antibiotics (if needed) for ESRD status. Avoid fleets enema/magnesium based laxatives. Thanks for allowing me to participate in care of your patient. Will follow patient with you. Please call if any Qs. had d/w team Dr Bryan Arroyo Office: [phone] CC: cough Reason for consultation is ESRD management HPI: Pt is a 32 F with hx of ESRD on hemodialysis (MWF) via AVF x 7 years @ [facility] [place] with Dr Lu, last dialysis Wed ,anemia, hyperphosphatemia, secondary hyperparathyroidism, hypertension, HIV on HAART, chronic Hep C came with c/o cough and feeling sick. feels has extra fluid. found to have pericardial effusion no nausea vomiting or stomach pain at present denied any shortness of breath and chest pain feels better. cough and SOB better ROS: cough improved Cardiovascular: No chest pain. Pulmonary: denies shortness of breath Gastrointestinal: no abdomen pain no nausea vomiting Genitourinary: No pain while urinating. Denies blood in urine. makes urine rarely All other negative Physical Examination: General Appearance: Comfortable, in no acute respiratory distress, co-operative . Vitals reviewed and noted as below Head; Atraumatic, normocephalic ENT: no ulcers no thrush. Tongue is midline. Oropharynx: no rash or ulcers. EYES: Pupils are equal, round and reactive to light accommodation. Eye muscles and extraocular movement intact. Sclera is anicteric. periorbital puffiness + Neck; supple no lymphadenopathy, no thyromegaly or bruit Lungs: Normal respiratory rate/effort. Breath sounds bilateral reduced at bases with crackles Heart: Normal rate. s1s2 normal. No rub or gallop. Extremities: 1-2+ edema. No varicose veins. Neurological: Patient is alert, awake and oriented to person, place and time. no focal deficit Skin: Warm and dry. Normal turgor. No rash. Palpitation: Normal elasticity for age Abdomen: Abdomen is soft. Bowel sounds +. There is no abdominal tenderness, no guarding/rigidity or organomegaly. Psych: normal insight and normal affect/mood MSK: no joint tenderness or swelling. Digits and nails normal, no deformity : kidney or bladder not palpable Access: RUE AVF Labs/imaging reviewed. Past medical history, past surgical history, family history, social history, allergy reviewed and noted as below Family Hx: no hx of CKD. Non contributory Past Patient History - Infectious Disease Hx of Infectious Diseases: None - Tetanus Immunizations Tetanus Immunization: Unknown - Past Social History Smoking Status: Current Some Days Smoker - CARDIAC Hx Cardiac Disorders: Yes Hx Congestive Heart Failure: Yes Hx Hypertension: Yes - PULMONARY Hx Respiratory Disorders: Yes (SMOKES P LASTS FOR 3 D) Hx Bronchitis: Yes Hx Pneumonia: Yes - NEUROLOGICAL Hx Neurological Disorder: Yes Hx Dizziness: Yes - HEENT Hx HEENT Problems: No - RENAL Hx Chronic Kidney Disease: Yes Hx Dialysis: Yes (m/w/f [facility]) Hx Renal Failure: Yes - ENDOCRINE/METABOLIC Hx Endocrine Disorders: No - HEMATOLOGICAL/ONCOLOGICAL Hx Blood Disorders: Yes Hx AIDS: Yes Hx Hepatitis C: Yes - INTEGUMENTARY Hx Dermatological Problems: No - MUSCULOSKELETAL/RHEUMATOLOGICAL Hx Falls: No - GASTROINTESTINAL Hx Gastrointestinal Disorders: Yes (HEMORRHOIDS,GASTROENTERITIS) Hx Pancreatitis: Yes Other/Comment: pancreatitis - GENITOURINARY/GYNECOLOGICAL Hx Genitourinary Disorders: No (OLIGURIA) Other/Comment: R BREAST CYST - PSYCHIATRIC Hx Psychophysiologic Disorder: Yes Hx Anxiety: Yes Hx Depression: Yes Hx Substance Use: No - SURGICAL HISTORY Other/Comment: right arm AV fistula - ANESTHESIA Hx Anesthesia: Yes Hx Anesthesia Reactions: No Hx Malignant Hyperthermia: No Meds Allergies/Adverse Reactions: Allergies Allergy/AdvReac Type Severity Reaction Status Date / Time shellfish derived Allergy ANAPHYLAXIS Verified 10/29/17 18:25 - Medications Medications: Current Medications Acetaminophen (Tylenol 325mg Tab) 650 mg PO Q6H PRN PRN Reason: Pain, moderate (4-7) Amlodipine Besylate (Norvasc) 10 mg PO DAILY [facility] Benzonatate (Tessalon Perles) 100 mg PO TID [facility] Cinacalcet (Sensipar) 60 mg PO DAILY [facility] Clonidine HCl (Catapres) 0.2 mg PO TID [facility] Last Admin: 06/15/18 08:54 Dose: 0.2 mg Heparin Sodium (Porcine) (Heparin) 5,000 units SC Q12 [facility]; Protocol Hydralazine HCl (Apresoline) 10 mg IVP Q6 PRN PRN Reason: Systolic Blood Pressure Lopinavir/Ritonavir (Kaletra 200-50 Mg) 2 cap PO BID [facility]; Protocol Losartan Potassium (Cozaar) 100 mg PO DAILY [facility] Metoprolol Succinate (Toprol Xl) 100 mg PO BRK [facility] Pantoprazole Sodium (Protonix Ec Tab) 40 mg PO 0600 [facility] Last Admin: 06/15/18 08:54 Dose: 40 mg Promethazine HCl (Phenergan Syrup) 6.25 mg PO Q4H PRN PRN Reason: Cough Raltegravir (Isentress) 400 mg PO BID [facility]; Protocol Raltegravir (Isentress) 400 mg PO BID [facility]; Protocol Sevelamer HCl (Renagel) 2,400 mg PO WM [facility] Last Admin: 06/15/18 08:54 Dose: 2,400 mg Results - Vital Signs Recent Vital Signs: Last Vital Signs Temp 98.2 F 06/15/18 06:00 Pulse 88 06/15/18 11:01 Resp 20 06/15/18 06:00 BP 152/100 H 06/15/18 11:01 Pulse Ox 100 06/15/18 04:00 - Labs Result Diagrams: 06/15/18 09:30 06/15/18 09:30 Labs: Laboratory Results - last 24 hr 06/14/18 06/14/18 06/14/18 20:12 20:12 20:12 WBC 6.3 RBC 3.53 Hgb 11.1 L Hct 34.8 L MCV 98.6 MCH 31.4 MCHC 31.9 RDW 14.8 H Plt Count 235 MPV 11.2 H Gran % 58.2 Lymph % (Auto) 25.4 [place] % (Auto) 10.7 H Eos % (Auto) 4.9 Baso % (Auto) 0.8 Gran # 3.68 Lymph # (Auto) 1.6 [place] # (Auto) 0.7 H Eos # (Auto) 0.3 Baso # (Auto) 0.05 Sodium 138 Potassium 4.0 Chloride 95 L Carbon Dioxide 28 Anion Gap 19 BUN 26 H Creatinine 10.5 H* Est GFR ( Amer) 5 Est GFR (Non-Af Amer) 4 Random Glucose 85 Calcium 8.8 Phosphorus Magnesium Total Bilirubin 1.1 AST 30 ALT 21 Alkaline Phosphatase 183 H D Total Protein 9.2 H Albumin 4.9 H Globulin 4.4 Albumin/Globulin Ratio 1.1 Lipase 346 H Beta HCG, Quant Influenza Typ A,B (EIA) Negative for flu a/b 06/14/18 06/15/18 06/15/18 20:12 09:30 09:30 WBC 7.8 D RBC 3.50 Hgb 10.9 L Hct 34.7 L MCV 99.1 MCH 31.1 MCHC 31.4 RDW 14.8 H Plt Count 262 MPV 11.2 H Gran % 63.3 Lymph % (Auto) 22.5 [place] % (Auto) 9.3 H Eos % (Auto) 4.5 Baso % (Auto) 0.4 Gran # 4.93 Lymph # (Auto) 1.8 [place] # (Auto) 0.7 H Eos # (Auto) 0.4 Baso # (Auto) 0.03 Sodium 139 Potassium 4.3 Chloride 94 L Carbon Dioxide 30 Anion Gap 20 BUN 27 H Creatinine 12.1 H* Est GFR ( Amer) 4 Est GFR (Non-Af Amer) 4 Random Glucose 92 Calcium 9.0 Phosphorus 5.8 H Magnesium 2.2 Total Bilirubin 1.1 AST 30 ALT 13 Alkaline Phosphatase 190 H Total Protein 9.2 H Albumin 4.8 Globulin 4.4 Albumin/Globulin Ratio 1.1 Lipase Beta HCG, Quant < 2.39 Influenza Typ A,B (EIA)
[2018-06-15] MEDS ORDERED: Vancomycin 1gm in NS 250ml 1 GM/250 ML BAG IVPB STA (11:17)
--- NOTE | 2018-06-15 11:49 | CARD ---
APPROVED REPORT Date of service: 06/15/2018 EKG Measurement Heart [id number] <Conclusion> Normal sinus rhythm Prolonged QT Abnormal ECG
--- NOTE | 2018-06-15 16:31 | CON ---
DATE OF CONSULTATION: 06/15/2018 CHIEF COMPLAINT: Shortness of breath and weakness x1 day duration. HISTORY OF PRESENT ILLNESS: This is a 32-year-old female with past medical history of positive HIV, positive hepatitis C, chronic renal failure, on hemodialysis, who has missed her hemodialysis for several days, now presenting with cough, congestion, fever, associated epigastric pain, nausea, vomiting and diarrhea. PAST MEDICAL HISTORY: Significant for HIV, hepatitis C, chronic renal failure and hemodialysis, nephropathy from the HIV, history of pancreatitis, history of leg cellulitis, and history of hypertension. PAST SURGICAL HISTORY: Significant for right arm AV fistula. REVIEW OF SYSTEMS: A 12-point review of systems is performed. MEDICATIONS AT HOME: Isentress, Kaletra, Benadryl, vitamins, Catapres and Norvasc. ALLERGIES: THE PATIENT IS ALLERGIC TO SHELLFISH. PHYSICAL EXAMINATION: She is in bed, answering questions appropriately with a temperature of 98 and heart rate of 109, respiratory rate of 20, blood pressure of 176/92. Examination of HEENT is unremarkable. Neck is supple. Lungs show decreased breath sounds. Heart exam, normal S1, S2. Abdominal examination is soft, nontender. LABORATORY EXAMINATION: Reveals white count of 6.3, hemoglobin of 11, platelets of 235. Creatinine is 10, alk phos is 183, lipase is 346. Influenza is negative. Microbiology is pending. The patient had a chest x-ray, which is vascular congestion. CAT scan of the abdomen and pelvis shows a new pericardial effusion. Gallbladder is unremarkable. Consultation with cardiology is reviewed. ASSESSMENT/PLAN: This is a 32-year-old female with a history of positive HIV, hepatitis C, chronic renal failure, hemodialysis, pancreatitis, depression, hypertension, leg cellulitis, and admitted with shortness of breath and tachycardia and found to have a pericardial effusion, which is new, and enteritis on CAT scan. Must rule out healthcare-associated pneumonia, pericarditis, bacterial origin versus noncompliance to dialysis. We will order blood cultures, echo, urine cultures, sputum cultures. We will give a dose of vancomycin and meropenem. Depending on panculture results, echo results, cultures, we will make further recommendations. Continue the HIV medications. The patient had T cells done and we will make further recommendations. Review of the previous HIV workup reveals the patient to have HIV PCR undetectable in 10/2017. Last T-cells documented here are also 10/2017 at 32% with an absolute CD4 count of 432 also in 10/2017. We will follow with you. Bhargav Thrasher MD
--- NOTE | 2018-06-15 16:45 | CARD ---
APPROVED REPORT Date of service: 06/15/2018 EXAM: Two-dimensional and M-mode echocardiogram with Doppler and color Doppler. INDICATION Pericardial Effusion 2D DIMENSIONS Left Atrium (2D)4.7 (1.6-4.0cm)IVSd1.7 (0.7-1.1cm) Aortic Root (2D)3.3 (2.0-3.7cm)LVDd5.4 (3.9-5.9cm) PWd1.6 (0.7-1.1cm)LVDs1.8 (2.5-4.0cm) FS (%) 66.2 %LVEF (%)92.9 (>50%) M-Mode DIMENSIONS Aortic Root2.20 (2.2-3.7cm) Aortic Valve AoV Peak Qdsjekel015.0cm/Corey Peak GR.22mmHg Mitral Valve MV E Ehvpkkue274.0cm/sMV A Sbuzhaqp998.0cm/sE/A ratio1.0 TDI Lateral E' Peak V11.60cm/sMedial E' Peak V8.29cm/sE/Lateral E'11.8 E/Medial E'16.5 Pulmonary Valve PV Peak Wblpfpni322.0cm/sPV Peak Grad.9mmHg Tricuspid Valve TR Peak Wsxcated552mg/sRAP TXAJSRIY2wzZuGP Peak Gr.36mmHg [id number] LEFT VENTRICLE The left ventricle is normal size. There is moderate concentric left ventricular hypertrophy. The left ventricular function is normal. The left ventricular ejection fraction is within the normal range. There is normal LV segmental wall motion. Transmitral Doppler flow pattern is Grade I-abnormal relaxation pattern. RIGHT VENTRICLE The right ventricle is normal size. There is normal right ventricular wall thickness. The right ventricular systolic function is normal. ATRIA The left atrium is mildly dilated. The right atrium is mildly dilated. AORTIC VALVE The aortic valve is mildly thickened. There is mild aortic regurgitation. There is no aortic valvular stenosis. MITRAL VALVE The mitral valve is mildly thickened. Mitral regurgitation is mild. There is no mitral valve stenosis. TRICUSPID VALVE The tricuspid valve is normal in structure. There is mild to moderate tricuspid regurgitation. There is mild pulmonary hypertension. PULMONIC VALVE The pulmonary valve is normal in structure. There is trace to mild pulmonic valvular regurgitation. GREAT VESSELS The aortic root is normal in size. The IVC is dilated. PERICARDIAL EFFUSION There is a small-moderate circumferential pericardial effusion. There are no echocardiographic indications of cardiac tamponade. <Conclusion> The left ventricle is normal size. There is moderate concentric left ventricular hypertrophy. The left ventricular function is normal. The left ventricular ejection fraction is within the normal range. There is normal LV segmental wall motion. Transmitral Doppler flow pattern is Grade I-abnormal relaxation pattern. There is mild aortic regurgitation. Mitral regurgitation is mild. There is mild to moderate tricuspid regurgitation. There is mild pulmonary hypertension. There is a small-moderate circumferential pericardial effusion. There are no echocardiographic indications of cardiac tamponade.
[2018-06-15] MEDS: Lopinavir/Ritonavir Tab PO SCH ×2 (17:27→17:38)
[2018-06-15] MEDS: Metoprolol Succinate 100 mg XL Tab PO SCH (17:36)
[2018-06-16] MEDS: Pantoprazole 40 mg EC Tab PO SCH (06:42)
[2018-06-16 07:00] VITALS: O2SAT 98
[2018-06-16 07:10] LABS: BASO # 0.02 K/mm3 (0.0-2.0); BASO % 0.3 % (0.0-3.0); EOS # 0.4 (0.0-0.7); EOS % 6.2 % (1.5-5.0); GRAN # 4.03 (1.4-6.5); GRAN % 61.2 % (50.0-68.0); HEMOGLOBIN 10.7 g/dL (12.0-16.0); LYMPH # 1.5 (1.2-3.4); LYMPH % 22.9 % (22.0-35.0); MEAN CELL VOLUME 98.2 fl (80.0-105.0); MEAN CORPUSCULAR HEMOGLOBIN 31.5 pg (25.0-35.0); MEAN PLATELET VOLUME 10.9 fl (7.0-11.0); MONO # 0.6 (0.1-0.6); MONO % 9.4 % (1.0-6.0); RBC 3.4 10^6/uL (3.5-6.1); RED CELL DISTRIBUTION WIDTH 14.7 % (11.5-14.5); WHITE BLOOD COUNT 6.6 10^3/ul (4.5-11.0)
[2018-06-16 07:32] LABS: ALB/GLOB RATIO 1.1 (1.1-1.8); ALBUMIN 4.3 g/dL (3.0-4.8); CALCIUM 8.9 mg/dL (8.4-10.5)
--- NOTE | 2018-06-16 07:49 | CP.PCM.PN ---
Subjective - Date & Time of Evaluation Date of Evaluation: 06/16/18 Time of Evaluation: 06:35 - Subjective Subjective: Awake, alert, denies shortness of breath,feels better Reason for consultation and follow up: Cardiac evaluation of moderate pericardi al effusion from CT of chest,History of Hep C, HIV, hypertension, ESRD on hemodialysis Seen and examined by me and Dr. Sampson Objective - Vital Signs/Intake and Output Vital Signs (last 24 hours): Temp Pulse Resp BP Pulse Ox 98.5 F 87 22 177/95 H 98 06/16/18 06:00 06/16/18 06:00 06/16/18 06:00 06/16/18 06:00 06/16/18 06:00 Intake and Output: 06/16/18 06/16/18 06:59 18:59 Intake Total 1560 Output Total 0 Balance 1560 - Medications Medications: Current Medications Acetaminophen (Tylenol 325mg Tab) 650 mg PO Q6H PRN PRN Reason: Pain, moderate (4-7) Amlodipine Besylate (Norvasc) 10 mg PO DAILY [facility] Last Admin: 06/15/18 17:37 Dose: 10 mg Benzonatate (Tessalon Perles) 100 mg PO TID [facility] Last Admin: 06/15/18 17:38 Dose: 100 mg Cinacalcet (Sensipar) 60 mg PO DAILY [facility] Last Admin: 06/15/18 17:37 Dose: 60 mg Clonidine HCl (Catapres) 0.2 mg PO TID [facility] Last Admin: 06/15/18 17:36 Dose: 0.2 mg Heparin Sodium (Porcine) (Heparin) 5,000 units SC Q12 [facility]; Protocol Last Admin: 06/15/18 22:00 Dose: Not Given Hydralazine HCl (Apresoline) 10 mg IVP Q6 PRN PRN Reason: Systolic Blood Pressure Meropenem 250 mg/ Sodium (Chloride) 100 mls @ 100 mls/hr IVPB Q12H [facility]; Protocol Stop: 06/24/18 11:31 Last Admin: 06/15/18 23:30 Dose: Not Given Lopinavir/Ritonavir (Kaletra 200-50 Mg) 2 cap PO BID [facility]; Protocol Last Admin: 06/15/18 17:38 Dose: 2 cap Losartan Potassium (Cozaar) 100 mg PO DAILY [facility] Last Admin: 06/15/18 17:36 Dose: 100 mg Metoprolol Succinate (Toprol Xl) 100 mg PO BRK [facility] Last Admin: 06/15/18 17:36 Dose: 100 mg Pantoprazole Sodium (Protonix Ec Tab) 40 mg PO 0600 [facility] Last Admin: 06/16/18 06:42 Dose: 40 mg Promethazine HCl (Phenergan Syrup) 6.25 mg PO Q4H PRN PRN Reason: Cough Raltegravir (Isentress) 400 mg PO BID [facility]; Protocol Last Admin: 06/15/18 17:38 Dose: 400 mg Raltegravir (Isentress) 400 mg PO BID [facility]; Protocol Last Admin: 06/15/18 17:27 Dose: Not Given Sevelamer HCl (Renagel) 2,400 mg PO WM [facility] Last Admin: 06/15/18 18:20 Dose: Not Given - Labs Labs: 06/16/18 07:00 06/16/18 07:00 - Constitutional Appears: Non-toxic, No Acute Distress - Head Exam Head Exam: NORMAL INSPECTION, NORMOCEPHALIC - Eye Exam Eye Exam: Normal appearance Pupil Exam: NORMAL ACCOMODATION - ENT Exam ENT Exam: Mucous Membranes Moist, Normal Exam - Respiratory Exam Respiratory Exam: Decreased Breath Sounds, NORMAL BREATHING PATTERN - Cardiovascular Exam Cardiovascular Exam: REGULAR RHYTHM, +S1, +S2 Additional comments: Telemetry NSR 70's - GI/Abdominal Exam GI & Abdominal Exam: Soft, Normal Bowel Sounds - Exam Additional comments: ESRD on hemodialysis 3x a week (MWF) - Extremities Exam Extremities Exam: Full ROM, Normal Capillary Refill Additional comments: right arm AV shunt positive bruit and thrill - Neurological Exam Neurological Exam: Alert, Awake, Oriented x3 - Psychiatric Exam Psychiatric exam: Normal Affect, Normal Mood - Skin Skin Exam: Dry, Intact, Normal Color, Warm Assessment and Plan - Assessment and Plan (Free Text) Assessment: A 32 year old female who came in to the ER due to abdominal pain and not feeling well. She also complains of nausea and vomiting and not able to eat. She missed her hemodialysis yesterday due to not feeling well. She complains of mild shortness of breath and this happens when she misses her hemodialysis.History of Hep C, HIV, hypertension,CHF, bronchitis,pneumonia, pancreatitis,anxiety, depres srini, ESRD on hemodialysis 3x a week (MWF) at [facility] in [place]. Right arm fistula. CT of abdomen and pelvis showed pelvic cystic masses likely adnexal, pericardial effusion, Chest X ray-cardiomegaly, pulmonary vascular congestion. Shortness of breath due to pulmonary congestion missing her h emodialysis yesterday. She will go for hemodialysis today. Pericardial effusion. Echo done-LVEF is normal, LV function is normal, Mild AR/MR, Moderate tricuspid regurgitation, Mild pulmonary hypertension,Small to moderate pericardial effusion, No cardiac tamponade,Follow up with echo in 4-6 weeks as out patient. Plan: Echo done -LVEF is normal, LV function is normal Mild AR/MR, Moderate tricuspid regurgitation Mild pulmonary hypertension Small to moderate pericardial effusion No cardiac tamponade Follow up with echo in 4-6 weeks as out patient Feels better today,denies shortness of breath Had hemodialysis yesterday On Norvasc 10 mg daily, Catapres 0.2 mg TID, Cozaar 100 mg daily,Toprol 100 mg daily Controlled heart rate Uncontrolled blood pressure PRN Hydralazine Continue current treatment Continue current medications Chart reviewed Discontinue telemetry Will follow up Plan and treatment discussed with Dr. Sampson
[2018-06-16] MEDS: Metoprolol Succinate 100 mg XL Tab PO SCH (09:04)
[2018-06-16] MEDS: Lopinavir/Ritonavir Tab PO SCH (09:05)
--- NOTE | 2018-06-16 10:03 | CP.PCM.PN ---
Subjective - Date & Time of Evaluation Date of Evaluation: 06/16/18 Time of Evaluation: 10:00 - Subjective Subjective: PGY-2 medicine progress note for Dr Lehman No acute events overnight. Patient today stated she's feeling much better - she stated her breathing had improved - she also denied emesis or diarrhea. She had hemodialysis yesterday and she said they removed about 3.5L. Objective - Vital Signs/Intake and Output Vital Signs (last 24 hours): Temp Pulse Resp BP Pulse Ox 98.5 F 80 22 177/95 H 98 06/16/18 06:00 06/16/18 09:05 06/16/18 06:00 06/16/18 09:05 06/16/18 06:00 Intake and Output: 06/16/18 06/16/18 06:59 18:59 Intake Total 1560 Output Total 0 Balance 1560 - Medications Medications: Current Medications Acetaminophen (Tylenol 325mg Tab) 650 mg PO Q6H PRN PRN Reason: Pain, moderate (4-7) Amlodipine Besylate (Norvasc) 10 mg PO DAILY [facility] Last Admin: 06/16/18 09:04 Dose: 10 mg Benzonatate (Tessalon Perles) 100 mg PO TID [facility] Last Admin: 06/16/18 09:05 Dose: 100 mg Cinacalcet (Sensipar) 60 mg PO DAILY [facility] Last Admin: 06/16/18 09:06 Dose: 60 mg Clonidine HCl (Catapres) 0.2 mg PO TID [facility] Last Admin: 06/16/18 09:04 Dose: 0.2 mg Heparin Sodium (Porcine) (Heparin) 5,000 units SC Q12 [facility]; Protocol Last Admin: 06/16/18 09:09 Dose: Not Given Hydralazine HCl (Apresoline) 10 mg IVP Q6 PRN PRN Reason: Systolic Blood Pressure Hydralazine HCl (Apresoline) 50 mg PO Q8 [facility] Last Admin: 06/16/18 09:05 Dose: 50 mg Meropenem 250 mg/ Sodium (Chloride) 100 mls @ 100 mls/hr IVPB Q12H [facility]; Protocol Stop: 06/24/18 11:31 Last Admin: 06/15/18 23:30 Dose: Not Given Lopinavir/Ritonavir (Kaletra 200-50 Mg) 2 cap PO BID [facility]; Protocol Last Admin: 06/16/18 09:05 Dose: 2 cap Losartan Potassium (Cozaar) 100 mg PO DAILY [facility] Last Admin: 06/16/18 09:04 Dose: 100 mg Metoprolol Succinate (Toprol Xl) 100 mg PO BRK [facility] Last Admin: 06/16/18 09:04 Dose: 100 mg Pantoprazole Sodium (Protonix Ec Tab) 40 mg PO 0600 [facility] Last Admin: 06/16/18 06:42 Dose: 40 mg Promethazine HCl (Phenergan Syrup) 6.25 mg PO Q4H PRN PRN Reason: Cough Raltegravir (Isentress) 400 mg PO BID [facility]; Protocol Last Admin: 06/16/18 09:05 Dose: 400 mg Raltegravir (Isentress) 400 mg PO BID [facility]; Protocol Last Admin: 06/16/18 09:17 Dose: Not Given Sevelamer HCl (Renagel) 2,400 mg PO WM [facility] Last Admin: 06/16/18 09:06 Dose: 2,400 mg - Labs Labs: 06/16/18 07:00 06/16/18 07:00 - Additional Findings Additional findings: - Constitutional Appears: Well, Non-toxic, No Acute Distress - Head Exam Head Exam: ATRAUMATIC, NORMOCEPHALIC - Eye Exam Eye Exam: EOMI, Normal appearance Pupil Exam: PERRL - ENT Exam ENT Exam: Mucous Membranes Moist - Neck Exam Neck exam: Positive for: Normal Inspection - Respiratory Exam Respiratory Exam: Decreased Breath Sounds, Wheezes. absent: Accessory Muscle Use, Chest Wall Tenderness, Prolonged Expiratory Phase, Respiratory Distress - Cardiovascular Exam Cardiovascular Exam: RRR, +S1, +S2 - GI/Abdominal Exam GI & Abdominal Exam: No Guarding, Normoactive Bowel Sounds, Soft, No Tenderness. absent: Distended, Organomegaly, Rigid - Extremities Exam Extremities exam: Positive for: pedal edema, pedal pulses present. Negative for: tenderness Additional comments: R arm AV fistula in place. No thrills and good flow auscultated. - Back Exam Back exam: absent: CVA tenderness (L), CVA tenderness (R), rash noted - Neurological Exam Neurological exam: Alert, Oriented x3 - Skin Skin Exam: Dry, Intact Assessment and Plan - Assessment and Plan (Free Text) Plan: 32 year old female with past medical history of Hep C, HIV, HTN, ESRD on MWF presents with abdominal pain. Patients states she missed her dialysis session yesterday. Patient admitted for pericardial effusion and enteritis. Plan: Pericardial effusion - Dyspnea on exertion and orthopnea reported for a few weeks - CXR shows worsened infiltrates as compared to previous admission - Cardio consulted - Dr. Sampson - recs appreciated - Echo * LV normal size, moderate LVH, LV function normal, EF normal, grade I-abnormal relaxation pattern, small-moderate circumferential pericardial effusion, no tamponade Hypertensive Urgency likely secondary to acute fluid overloaded state missed dialysis -BP: 176/100 sustained for a few readings over 3 hours -patient reports taking all BP meds yesterday -Nephro consulted, Dr. Lu recommendations appreciated -continue home medications for HTN. Added metorolol succinate 100mg po qd -continue to monitor Abdominal Pain with Nausea and Vomiting and Diarrhea -No zofran or reglan as QT prolonged 486 -NPO, consider advancing in AM -No ABX coverage necessary at this time -CT abdomen: enteritis, right ovarian cysts -ID consulted, Dr. Thrasher, follow recs -pain control with Tylenol PRN ESRD - dialysis MWF, dialysis missed yesterday - CT abd/pel shows kidney atrophy - BUN: 26 Cr: 10.5, K: 4.0 - Nephro consult- Dr. Lu- recommendations appreciated for HD - continue home meds - will monitor renal function Cough - likely 2/2 URI, congestion on CXR - monitor off ABx for now, will reassess in AM - Cash mendiola Ovarian Cysts - mentioned on CT abd/pel - f/u outpatient with PCP or OBGYN for possible pelvic U/S GI/DVT PPx-protonix 40 mg PO, heparin SC BID Patient seen, case reviewed, and plan approved by Dr. Lehman.
--- NOTE | 2018-06-16 10:24 | CP.PCM.DIS ---
<Tien Rodriguez R - Last Filed: 06/16/18 10:26> Provider - Provider Date of Admission: 06/15/18 01:55 Attending physician: Juan Francisco Heath MD Primary care physician: PMD: Dr Collier Consults: Cardio: Dr Sampson ID: Dr Thrasher Nephro: Dr Lorenzo Lu Time Spent in preparation of Discharge (in minutes): 36 Diagnosis - Discharge Diagnosis (1) Missed dialysis Status: Acute Priority: High (2) Pericardial effusion Status: Suspected Priority: High (3) Enteritis Status: Acute Priority: High (4) Hemodialysis patient Status: Chronic Priority: High Hospital Course - Lab Results Lab Results: Most Recent Lab Values WBC 6.6 10^3/ul (4.5-11.0) 06/16/18 07:00 RBC 3.40 10^6/uL (3.5-6.1) L 06/16/18 07:00 Hgb 10.7 g/dL (12.0-16.0) L 06/16/18 07:00 Hct 33.4 % (36.0-48.0) L 06/16/18 07:00 MCV 98.2 fl (80.0-105.0) 06/16/18 07:00 MCH 31.5 pg (25.0-35.0) 06/16/18 07:00 MCHC 32.0 g/dl (31.0-37.0) 06/16/18 07:00 RDW 14.7 % (11.5-14.5) H 06/16/18 07:00 Plt Count 268 10^3/uL (120.0-450.0) 06/16/18 07:00 MPV 10.9 fl (7.0-11.0) 06/16/18 07:00 Gran % 61.2 % (50.0-68.0) 06/16/18 07:00 Lymph % (Auto) 22.9 % (22.0-35.0) 06/16/18 07:00 [place] % (Auto) 9.4 % (1.0-6.0) H 06/16/18 07:00 Eos % (Auto) 6.2 % (1.5-5.0) H 06/16/18 07:00 Baso % (Auto) 0.3 % (0.0-3.0) 06/16/18 07:00 Gran # 4.03 (1.4-6.5) 06/16/18 07:00 Lymph # (Auto) 1.5 (1.2-3.4) 06/16/18 07:00 [place] # (Auto) 0.6 (0.1-0.6) 06/16/18 07:00 Eos # (Auto) 0.4 (0.0-0.7) 06/16/18 07:00 Baso # (Auto) 0.02 K/mm3 (0.0-2.0) 06/16/18 07:00 Sodium 137 mmol/L (132-148) 06/16/18 07:00 Potassium 4.3 mmol/L (3.6-5.0) 06/16/18 07:00 Chloride 96 mmol/L (98-107) L 06/16/18 07:00 Carbon Dioxide 28 mmol/L (21-33) 06/16/18 07:00 Anion Gap 16 (10-20) 06/16/18 07:00 BUN 20 mg/dL (7-21) 06/16/18 07:00 Creatinine 7.9 mg/dl (0.7-1.2) H* D 06/16/18 07:00 Est GFR ( Amer) 7 06/16/18 07:00 Est GFR (Non-Af Amer) 6 06/16/18 07:00 Random Glucose 79 mg/dL (70-110) 06/16/18 07:00 Calcium 8.9 mg/dL (8.4-10.5) 06/16/18 07:00 Phosphorus 4.8 mg/dL (2.5-4.5) H 06/16/18 07:00 Magnesium 2.1 mg/dL (1.7-2.2) 06/16/18 07:00 Total Bilirubin 1.2 mg/dL (0.2-1.3) 06/16/18 07:00 AST 30 U/L (14-36) 06/16/18 07:00 ALT 24 U/L (7-56) 06/16/18 07:00 Alkaline Phosphatase 188 U/L (38-126) H 06/16/18 07:00 Total Protein 8.4 g/dL (5.8-8.3) H 06/16/18 07:00 Albumin 4.3 g/dL (3.0-4.8) 06/16/18 07:00 Globulin 4.1 gm/dL 06/16/18 07:00 Albumin/Globulin Ratio 1.1 (1.1-1.8) 06/16/18 07:00 Lipase 346 U/L (23-300) H 06/14/18 20:12 Beta HCG, Quant < 2.39 mIU/mL (0-6.15) 06/14/18 20:12 RPR Nonreactive (NONREACTIVE) 06/15/18 13:20 Hep B Core IgM Ab Negative (NEGATIVE) 06/15/18 13:20 Influenza Typ A,B (EIA) Negative for flu a/b (NEGATIVE) 06/14/18 20:12 - Hospital Course Hospital Course: CC: Abdominal Pain HPI: Ms. Wade is a 32 year old female with past medical history of Hep C, HIV, HTN, ESRD and MWF at [facility] who presents with cough and abdominal pain which began 2 days ago. Patients states she has missed her dialysis session yesterday due to the pain and vomiting. Last session was on Tuesday 06/12. She states the abdominal pain is located in her lower abdomen. She describes it as a 8/10 and states it is sharp in quality without radiation. She also says it is worse when she eats, and thus has not eaten for more than 12 hours. In addition patient states she has had three episodes of watery non bloody diarrhea and nonbilious vomiting of food and mucous. She also states she does not currently take any medications for the Hep C and has not taken her antiviral medications for multiple weeks. She endorses chills but denies any fever, sore throat, chest pain, shortness of breath or any other complaints at this time. PCP: Dr. Collier Nephdemi: Dr. Lu PMHX: Hep C, HIV, HTN, ESRD and MWF PSHX: right arm dialysis fistula Allergies: Shellfish Social: 1 pk/3 days, denies alcohol or illicit drug use Meds: See MAR Fam Hx: denies HOSPITAL COURSE: Mrs Wade was admitted for enteritis, and symptoms/signs related to her missed hemodialysis session - including pericardial effusion and high blood pressure. An echo was performed which showed small-moderate circumferential pericardial effusion (no tamponade) which was most likely 2/2 to acute volume overload due to her missed hemodialysis session. Cardiology was consulted, Dr Sampson, who recommended a follow-up echo in 4-6 weeks to monitor the pericardial effusion. She did not have any signs/symptoms related to her pericardial effusion such as hypotension or shortness of breath. Additionally, she had symptoms of gastroenteritis and a CT confirmed enteritis - ID was consulted, Dr Christianson, who started her on merrem 250mg ivpb q12h (she also received 1 dose of vanco). Lastly, Dr Lu was consulted for her nephro needs. She was given a hemodialysis session and 3.5L were removed. She will resume her normal MWF HD schedule. The last assessment and plan are included below for more specifics on man agement: Pericardial effusion - Dyspnea on exertion and orthopnea reported for a few weeks - CXR shows worsened infiltrates as compared to previous admission - Cardio consulted - Dr. Sampson - recs appreciated - F/u Echo in AM Hypertensive Urgency likely secondary to acute fluid overloaded state missed dialysis -BP: 176/100 sustained for a few readings over 3 hours -patient reports taking all BP meds yesterday -Nephro consulted, Dr. Lu recommendations appreciated -continue home medications for HTN. Hydralazine added q6h PRN -continue to monitor Abdominal Pain with Nausea and Vomiting and Diarrhea -No zofran or reglan as QT prolonged 486 -NPO, consider advancing in AM - No ABX coverage necessary at this time -CT abdomen: enteritis, right ovarian cysts -ID consulted, Dr. Thrasher, follow recs -pain control with Tylenol PRN ESRD - dialysis MWF, dialysis missed yesterday - CT abd/pel shows kidney atrophy - BUN: 26 Cr: 10.5, K: 4.0 - Nephro consult- Dr. Lu- recommendations appreciated for HD - continue home meds - will monitor renal function Cough - likely 2/2 URI, congestion on CXR - monitor off ABx for now, will reassess in AM - Cash mendiola Ovarian Cysts - mentioned on CT abd/pel - f/u outpatient with PCP or OBGYN for possible pelvic U/S GI/DVT PPx-protonix 40 mg PO, heparin SC BID Discharge Exam - Additional Findings Additional findings: - Constitutional Appears: Well, Non-toxic, No Acute Distress - Head Exam Head Exam: ATRAUMATIC, NORMOCEPHALIC - Eye Exam Eye Exam: EOMI, Normal appearance Pupil Exam: PERRL - ENT Exam ENT Exam: Mucous Membranes Moist - Neck Exam Neck exam: Positive for: Normal Inspection - Respiratory Exam Respiratory Exam: Decreased Breath Sounds, Wheezes. absent: Accessory Muscle Use, Chest Wall Tenderness, Prolonged Expiratory Phase, Respiratory Distress - Cardiovascular Exam Cardiovascular Exam: RRR, +S1, +S2 - GI/Abdominal Exam GI & Abdominal Exam: No Guarding, Normoactive Bowel Sounds, Soft, No Tenderness. absent: Distended, Organomegaly, Rigid - Extremities Exam Extremities exam: Positive for: pedal edema, pedal pulses present. Negative for: tenderness Additional comments: R arm AV fistula in place. No thrills and good flow auscultated. - Back Exam Back exam: absent: CVA tenderness (L), CVA tenderness (R), rash noted - Neurological Exam Neurological exam: Alert, Oriented x3 - Skin Skin Exam: Dry, Intact Discharge Plan - Follow Up Plan Condition: FAIR Disposition: HOME/ ROUTINE Instructions: Dialysis Diet , Hemodialysis (DC) Additional Instructions: Please follow-up with your Primary Medical Doctor within 1 week. Please follow up with your asic design engineer within 1 week - please continue hemodialysis sessions at the discretion of the asic design engineer. Please continue your normal home medications, these include: 1. cinacalcet 60mg po once a day 2. hydralazine 50mg po three times a day 3. amlodipine 10mg po once a day 4. clonidine 0.2mg po three times a day 5. kaletra 200-50mg po two times a day 6. minoxidil 5mg po once a day 7. raltegravir 400mg po two times a day 8. sevelamer 2400mg po three times a day 9. valsartan 320mg po once a day 10. vitamin b complex/vit c/folic 1 tablet once a day Please take your blood pressure medications as you normally do at your normally scheduled time - it seems you have a home medication routine which works for you so please continue this and most importantly please do your best not to miss any future hemodialysis sessions. If symptoms return, please go to your nearest emergency department. Referrals: Rojas Lu MD [Staff Provider] - <Callie Lehman - Last Filed: 06/16/18 14:52> Provider - Provider Date of Admission: 06/15/18 01:55 Attending physician: Juan Francisco Heath MD Hospital Course - Lab Results Lab Results: Micro Results 06/15/18 12:00 Blood Blood Culture - Preliminary NO GROWTH AFTER 24 HOURS 06/15/18 11:30 Blood Blood Culture - Preliminary NO GROWTH AFTER 24 HOURS Most Recent Lab Values WBC 6.6 10^3/ul (4.5-11.0) 06/16/18 07:00 RBC 3.40 10^6/uL (3.5-6.1) L 06/16/18 07:00 Hgb 10.7 g/dL (12.0-16.0) L 06/16/18 07:00 Hct 33.4 % (36.0-48.0) L 06/16/18 07:00 MCV 98.2 fl (80.0-105.0) 06/16/18 07:00 MCH 31.5 pg (25.0-35.0) 06/16/18 07:00 MCHC 32.0 g/dl (31.0-37.0) 06/16/18 07:00 RDW 14.7 % (11.5-14.5) H 06/16/18 07:00 Plt Count 268 10^3/uL (120.0-450.0) 06/16/18 07:00 MPV 10.9 fl (7.0-11.0) 06/16/18 07:00 Gran % 61.2 % (50.0-68.0) 06/16/18 07:00 Lymph % (Auto) 22.9 % (22.0-35.0) 06/16/18 07:00 [place] % (Auto) 9.4 % (1.0-6.0) H 06/16/18 07:00 Eos % (Auto) 6.2 % (1.5-5.0) H 06/16/18 07:00 Baso % (Auto) 0.3 % (0.0-3.0) 06/16/18 07:00 Gran # 4.03 (1.4-6.5) 06/16/18 07:00 Lymph # (Auto) 1.5 (1.2-3.4) 06/16/18 07:00 [place] # (Auto) 0.6 (0.1-0.6) 06/16/18 07:00 Eos # (Auto) 0.4 (0.0-0.7) 06/16/18 07:00 Baso # (Auto) 0.02 K/mm3 (0.0-2.0) 06/16/18 07:00 Sodium 137 mmol/L (132-148) 06/16/18 07:00 Potassium 4.3 mmol/L (3.6-5.0) 06/16/18 07:00 Chloride 96 mmol/L (98-107) L 06/16/18 07:00 Carbon Dioxide 28 mmol/L (21-33) 06/16/18 07:00 Anion Gap 16 (10-20) 06/16/18 07:00 BUN 20 mg/dL (7-21) 06/16/18 07:00 Creatinine 7.9 mg/dl (0.7-1.2) H* D 06/16/18 07:00 Est GFR ( Amer) 7 06/16/18 07:00 Est GFR (Non-Af Amer) 6 06/16/18 07:00 Random Glucose 79 mg/dL (70-110) 06/16/18 07:00 Calcium 8.9 mg/dL (8.4-10.5) 06/16/18 07:00 Phosphorus 4.8 mg/dL (2.5-4.5) H 06/16/18 07:00 Magnesium 2.1 mg/dL (1.7-2.2) 06/16/18 07:00 Total Bilirubin 1.2 mg/dL (0.2-1.3) 06/16/18 07:00 AST 30 U/L (14-36) 06/16/18 07:00 ALT 24 U/L (7-56) 06/16/18 07:00 Alkaline Phosphatase 188 U/L (38-126) H 06/16/18 07:00 Total Protein 8.4 g/dL (5.8-8.3) H 06/16/18 07:00 Albumin 4.3 g/dL (3.0-4.8) 06/16/18 07:00 Globulin 4.1 gm/dL 06/16/18 07:00 Albumin/Globulin Ratio 1.1 (1.1-1.8) 06/16/18 07:00 Lipase 346 U/L (23-300) H 06/14/18 20:12 Beta HCG, Quant < 2.39 mIU/mL (0-6.15) 06/14/18 20:12 RPR Nonreactive (NONREACTIVE) 06/15/18 13:20 Hep Bs Antibody Positive (NEGATIVE) 06/15/18 13:20 Hep B Core IgM Ab Negative (NEGATIVE) 06/15/18 13:20 Influenza Typ A,B (EIA) Negative for flu a/b (NEGATIVE) 06/14/18 20:12 Attending/Attestation - Attestation I have personally seen and examined this patient.: Yes I have fully participated in the care of the patient.: Yes I have reviewed all pertinent clinical information, including history, physical exam and plan: Yes Notes (Text): 06/16/18 14:47 Attending note; Patient seen and examined with resident. Patient is alert and awake. Denies any chest pain, shortness of breath. Blood pressure is still elevated. Denies any headache, nausea, vomiting. Denies any abdominal discomfort. Tolerating diet well. Denies any diarrhea. Patient is a 32 year old female with past medical history of Hep C, HIV, HTN, ESRD and MWF at [facility] who presents with cough and abdominal pain which began 2 days ago. Patients states she has missed her dialysis session on sunday due to the pain and vomiting. Last session was on Tuesday 06/12. End-stage renal disease on dialysis; patient missed hemodialysis yesterday. Patient will get dialysis today. Case discussed with asic design engineer in detail. Hypertension; continue hydralazine, clonidine, Norvasc and Cozaar. Abdominal pain; resolved completely. Tolerating diet. CT showed nonspecific enteritis. Patient is clinically asymptomatic. Treated with IV Zosyn. Chest x-ray show cardiomegaly and pulmonary vascular congestion. Pericardial effusion; secondary to missing dialysis. Echocardiogram showed small to moderate pericardial effusion. Cardiology evaluation appreciated. Continue hemodialysis for fluid removal. Patient is medically stable. Blood pressure medication adjusted by nephrology. Minoxidil stopped. HIV; continue home medications. The importance of Medication compliance and dialysis treatment compliance explained in detail. Patient will follow up with PMD .
[2018-06-16 12:07] VITALS: BP 170/109; PULSE 88; RESP 21; TEMP 98.3
--- NOTE | 2018-06-16 16:17 | PN ---
DATE: 06/16/2018 SUBJECTIVE: The patient is in bed, in no acute distress, was seen earlier today. She is awake and alert. No fevers. No chills. PHYSICAL EXAMINATION: VITAL SIGNS: Temperature is 98, blood pressure is 160/90, respiratory rate of 20, heart rate of 85. HEENT: Unremarkable. NECK: Supple. LUNGS: Have decreased breath sounds. HEART: Normal S1, S2. ABDOMINAL: Soft, nontender. LABORATORY DATA: Reveals a white count of 6.6, hemoglobin of 10, platelets of 268, creatinine is 7.9. Serology is noted. Microbiology is pending. Blood and urine cultures are pending. The patient is currently on intermittent vancomycin and meropenem. The patient had a CAT scan of the abdomen, which showed a new pericardial effusion. ASSESSMENT AND PLAN: A 32-year-old female with positive human immunodeficiency virus and hepatitis C, chronic renal failure, on hemodialysis and nephropathy and history of pancreatitis, right arm fistula. Admitted with shortness of breath and tachycardia. No fevers. Did have a heart rate up to 98 to 100, respiratory rate is 22 with systemic inflammatory response syndrome. No evidence of active infection. The blood, urine, and sputum cultures are negative. We will discontinue the antibiotics and discharge with no antibiotics. Bhargav Thrasher MD
[2018-06-17] MEDS ORDERED: Multivitamin Vitamin B Complex (Nephro-Vite) Tab PO SCH (08:00)
--- NOTE | 2018-06-17 09:34 | CON ---
DATE: 06/15/2018 Addendum LOCATION: Patient is in room 265, bed 2. REASON FOR CONSULTATION: Pericardial , renal failure, nausea and vomiting, and diarrhea. HISTORY OF PRESENT ILLNESS: The patient is a 32-year-old patient who is known to have renal failure, on dialysis; hepatitis C; HIV; hypertension; CHF; bronchitis; pneumonia; pancreatitis; anxiety; depression. Missed the dialysis yesterday. She is a poor compliant patient, admitted with nausea and vomited several times. Also, she states that she had loose bowel movements a few times. Now she is feeling better. Denies any chest pain. She says when she was having that episode of nausea and vomiting, she also had some cough and some expectoration. DIAGNOSTIC DATA: The patient's abdominal and pelvis CAT scan shows a small amount of pericardial , so a consultation has been requested. So, we are going to do an echo Doppler study today. REVIEW OF SYSTEMS: In the meantime, the patient is lying flat in bed without any chest pain, shortness of breath, or palpitations. The patient will have dialysis today. She missed the dialysis yesterday. MEDICATIONS: She is on clonidine 0.2 mg t.i.d., losartan 100 mg daily, raltegravir, potassium 400 mg b.i.d., lopinavir/ritonavir two capsules p.o. b.i.d, meropenem 250 mg IV every 12 hours, Protonix 40 mg daily, Renagel 2400 mg p.o. Sunday and Sunday, Sensipar 60 mg daily. ASSESSMENT: We will continue this therapy and dialysis today, and we will follow the echo report clinically. There are no signs of any cardiac tamponade. Juan Francisco Sampson MD
--- NOTE | 2018-06-17 09:47 | PN ---
DATE: 06/16/2018 LOCATION: The patient in room 265, bed 2. Progress note already dictated by Sarah Ny. SUBJECTIVE: The patient was admitted with abdominal pain, not feeling well and nausea and vomiting. The patient missed her dialysis. The patient is a poor compliant patient. The patient is now feeling better. Denies any chest pain, shortness of breath or palpitation. Denies any abdominal pain, nausea or vomiting. The patient's CAT scan abdomen and pelvis demonstrated pericardial effusion, so an echo was done, which showed normal LV ejection fraction with normal LV function. Mild AR and mild MR. Moderate tricuspid regurgitation. Mild pulmonary hypertension. Small to moderate pericardial effusion. No signs of cardiac tamponade, so this pericardial effusion is related to renal failure. The patient is also missing dialysis, so the patient had dialysis, she felt better. The patient should continue to be followed by Renal and followup dialysis and the patient can have repeat echo in a few weeks. All of this was explained to the patient. We will continue present . Juan Francisco Sampson MD
== END 2018-06-16 13:43 | disposition home or self-care (01) | DRG 314 ==
LOC: ED 19:03 → ERH 06-15 01:55 → 2RNO 06-15 03:54
PROVIDERS: ADMIT Internal Medicine; ATTEND Internal Medicine
PROC: 5A1D70Z Performance of Urinary Filtration, Intermittent, Less than 6 Hours Per Day (ICD-10-PCS; principal; 2018-06-15)
DX: I31.3 Pericardial effusion (noninflammatory) (principal); N18.6 End stage renal disease; B20 Human immunodeficiency virus [HIV] disease; I13.2 Hypertensive heart and chronic kidney disease with heart failure and with stage 5 chronic kidney disease, or end stage renal disease; N25.81 Secondary hyperparathyroidism of renal origin; K52.9 Noninfective gastroenteritis and colitis, unspecified; I50.9 Heart failure, unspecified; B18.2 Chronic viral hepatitis C; D64.9 Anemia, unspecified; E83.39 Other disorders of phosphorus metabolism; I16.0 Hypertensive urgency; I27.20 Pulmonary hypertension, unspecified; I07.1 Rheumatic tricuspid insufficiency; N83.201 Unspecified ovarian cyst, right side; F41.9 Anxiety disorder, unspecified; F32.9 Major depressive disorder, single episode, unspecified; Z87.891 Personal history of nicotine dependence; Z91.15 Patient's noncompliance with renal dialysis; Z99.2 Dependence on renal dialysis